=== PATIENT | female | born 1935 | race Caucasian/White ===

== ENCOUNTER 2019-01-03 07:49 | Inpatient (IN) ==
--- OUTSIDE RECORDS SUMMARY | 2019-01-03 07:53 | External Medical Summary | Continuity of Care Document ---
:1935 Author Name Luis Carlos Espino, Provider Address Unavailable Unavailable , Care Team Providers Name Role Phone Unavailable Unavailable Unavailable AMPAROQUINOTN Unavailable Unavailable Problems Nontraumatic intracranial hemorrhage, unspecified (432.9) (I 62.9) Anemia (285.9) (D64.9) Reflux esophagitis (530.11) (K21.0) Other sequela of other cerebrovascular disease (438.89) (I69 .898) Chronic diastolic CHF (congestive heart failure) (428.32) (I 50.32) Impacted cerumen of both ears (380.4) (H61.23) Allergies and Adverse Reactions Ativan (Allergy) diphenhydrAMINE HCl CAPS (Allergy) Eggs (Allergy) Medications Zoloft 50 MG Oral Tablet; TAKE 1 TABLET DAILY. , M.D. Refills: 0 Caltrate 600+D 600-800 MG-UNIT TABS; Take 1 tablet twice demian ly , M.D. Refills: 0 Cozaar 25 MG Oral Tablet; TAKE 1 TABLET DAILY. , M.D. Refills: 0 PriLOSEC OTC 20 MG Oral Tablet Delayed Release; TAKE 1 TABLE T DAILY. , M.D. Refills: 0 Lidoderm 5 % External Patch , M.D. Refills: 0 Xopenex 1.25 MG/3ML Inhalation Nebulization Solution , M.D. Refills: 0 Ipratropium-Albuterol 0.5-2.5 (3) MG/3ML Inhalation Solution , M.D. Refills: 0 oxyCODONE HCl - 5 MG Oral Tablet; TAKE 1/2 TABLET EVER Y 4 HOURS NEEDED , M.D. Refills: 0 Colace 100 MG Oral Capsule; TAKE 1 CAPSULE TWICE DAILY. , M. D. Refills: 0 Toprol XL 50 MG Oral Tablet Extended Release 24 Hour; Take 1 tablet twice daily , M.D. Refills: 0 Procedures Procedures not documented Immunizations Immunizations not documented Plan of Treatment Planned Observations Planned Goals not documented Results No Known Results Results not documented
[2019-01-03] MEDS ORDERED: MoRPHine SULFATE 4 MG/ML 1 ML CARP\\VIAL IV STA (08:16)
[2019-01-03 08:22] LABS: Basophils # (auto) 0.04 K/uL (0-0.2); Basophils % (auto) 0.6 %; Eosinophils # (auto) 0.31 K/uL (0-0.5); Eosinophils % (auto) 4.6 %; Hematocrit (blood only) 39.6 % (37-47); Hemoglobin 12.1 g/dL (12.0-16.0); Immature Granulocytes # (auto) 0.01 K/uL (0.00-0.02); Immature Granulocytes % (auto) 0.1 %; Lymphocytes # (auto) 1.42 K/uL (1.2-3.4); Lymphocytes % (auto) 21.3 %; Mean Corpuscular Hemoglobin 29.4 pg (25-34); Mean Corpuscular Hgb Conc 30.6 g/dL (32-36); Mean Corpuscular Volume 96.4 fL (80-100); Mean Platelet Volume 9.6 fL (7.4-10.4); Monocytes # (auto) 0.83 K/uL (0.11-0.59); Monocytes % (auto) 12.4 %; Neutrophils # (auto) 4.07 K/uL (1.4-6.5); Platelet Count 207 K/uL (130-400); RDW Coefficient of Variation 13.5 % (11.5-14.5); RDW Standard Deviation 47.5 fL (36.4-46.3); Red Blood Count 4.11 M/uL (4.2-5.4); White Blood Count 6.68 K/uL (4.8-10.8)
[2019-01-03 08:43] LABS: Albumin Level 3.3 gm/dl (3.4-5.0); BUN Creatinine Ratio 12.6 (10-20); Creatinine Clr Calc Pharmacy 53.1 ml/min; Est GFR (African American) 65.9; Est GFR (Non-African American) 56.8; Potassium 3.6 mmol/L (3.5-5.1)
[2019-01-03 08:46] LABS: Albumin Globulin Ratio 0.7 (0.9-2); Bilirubin,Total 0.5 mg/dl (0.2-1); Globulin 4.6 gm/dl (2.5-4.0); Total Protein 7.9 gm/dl (6.4-8.2)
[2019-01-03 08:50] LABS: Appearance Urine Clear (Clear); Bilirubin Urine Negative (Negative); Blood Urine Negative (Negative); Color Urine Yellow; Glucose Urine UA Negative (Negative); Ketones Urine Negative (Negative); Leukocyte Esterase Urine Negative (Negative); Nitrite Urine Negative (Negative); Protein Urine Negative (Negative); Specific Gravity Urine 1.016 (1.000-1.030); Urobilinogen Urine Negative (Negative)
--- NOTE | 2019-01-03 09:04 | Emergency Department Note ---
Entered by Constanza Herman acting as a scribe for History of Present Illness General Chief complaint: Back Injury/Pain Stated complaint: RT BACK AND SIDE PAIN,ABDOMEN PAIN Source: patient History of Present Illness Provider complaint: back pain Onset (ago): month(s) 1 Location: back, abdomen and right Severity: moderate Pain Consistency: + intermittent Maximum Pain Intensity: 10 Quality: + aching Exacerbated By: + movement Associated symptoms: + denies other symptoms The patient is an 83 y/o female with a PMH of a CVA, HTN, and CHF who presents to the emergency department for evaluation of intermittent right sided abdominal pain and right side of back that began last night. The patient states that she has had off and on pain for the past month in her back. The daughter reports that x-rays were taken but found nothing concerning. They state that the pain has been better until last night when it started again. She notes that the pain is worse with breathing and movement including twisting turning and bending. She notes that the pain is currently aching and she has been a bit nauseous. She notes that if she stays still pain is significantly better. The patient has a history of surgery for hernias, partial gastrectomy, cholecystectomy, and appendectomy. The patient denies numbness or weakness, vomiting and any other symptoms. She denies the use of blood thinners. No new chest pain or shortness of breath. Home Medications Home Medications Medication Instructions Recorded Confirmed Type sertraline 50 mg PO DAILY #0 tab 12/15/13 01/03/19 History metoprolol succinate 50 mg PO DAILY #0 tab 12/26/13 01/03/19 History nitroglycerin 0.4 mg SUBLINGUAL UD PRN #0 btl 12/26/13 01/03/19 History pantoprazole 40 mg PO DAILY #0 tab 12/26/13 01/03/19 History cholecalciferol (vitamin D3) 4,000 unit PO DAILY #0 tab 12/25/15 01/03/19 History calcium carbonate-vitamin D3 1 tab PO DAILY #0 04/12/16 01/03/19 History [Calcium 500 + D] sertraline 25 mg PO DAILY #0 tab 04/12/16 01/03/19 History albuterol sulfate [ProAir HFA] 2 inh INHALATION QID 01/03/19 01/03/19 History alendronate 70 mg PO SHERWOOD@0900 01/03/19 01/03/19 History benzonatate 100 mg PO TID PRN 01/03/19 01/03/19 History diclofenac sodium 4 g TOPICAL BID PRN 01/03/19 01/03/19 History furosemide 40 mg PO Q2D 01/03/19 01/03/19 History furosemide 60 mg PO Q2D 01/03/19 01/03/19 History iron,carbonyl-vitamin C [Vitron-C] 1 tab PO DAILY 01/03/19 01/03/19 History lorazepam 0.5 mg PO TID PRN 01/03/19 01/03/19 History Allergies Allergy/AdvReac Type Severity Reaction Status Date / Time diphenhydramine Allergy Severe ANAPHYLAXIS Verified 01/03/19 08:43 TO DIMEDROL-diphenhydramine is active ingredient nut - unspecified Allergy Severe ANAPHYLAXIS Verified 01/03/19 08:43 Past Med/Surg History Medical History Mood disorder (Chronic) Iron deficiency anemia (Chronic) Venous insufficiency (Chronic) Chronic respiratory failure with hypoxia (Chronic) Diastolic heart failure (Chronic) Hypertension (Chronic) Surgical History History of partial gastrectomy (Chronic) History of appendectomy (Chronic) Hx of cholecystectomy (Chronic) Family History Other Osteoporosis Social History Current Living Situation: Family Feels Safe at Home: Yes Smoking Status: Never smoker Hx Alcohol Use: No Review of Systems See HPI for pertinent positives & negatives. and A total of 10 systems reviewed and were otherwise negative Physical Exam Vital Signs Vital Signs - 24 hr 01/03/19 07:59 01/03/19 08:29 01/03/19 08:30 Temperature 37 C Temperature Source Oral Sepsis Recent Fever Within 48 Hours No Sepsis Action Taken by Nursing No Action Required Pulse Rate 77 Pulse Rate [Apical] 96 H Respiratory Rate 22 16 Respiratory Effort / Characteristics Non-Labored Spontaneous Respiratory Depth Normal Blood Pressure 106/58 L Blood Pressure [Right Arm] 142/91 H Blood Pressure Mean 74 Blood Pressure Mean [Right Arm] 108 Blood Pressure Position Sitting Pulse Oximetry 92 94 94 Oxygen Delivery Method Nasal Cannula Nasal Cannula Room Air Oxygen Flow Rate 3 3 3 01/03/19 09:48 01/03/19 10:54 01/03/19 12:08 Temperature Temperature Source Sepsis Recent Fever Within 48 Hours Sepsis Action Taken by Nursing Pulse Rate Pulse Rate [Apical] 75 73 71 Respiratory Rate 16 16 20 Respiratory Effort / Characteristics Non-Labored Spontaneous Respiratory Depth Normal Blood Pressure Blood Pressure [Right Arm] 97/76 L 136/91 161/100 H Blood Pressure Mean Blood Pressure Mean [Right Arm] 83 106 120 Blood Pressure Position Pulse Oximetry 94 95 97 Oxygen Delivery Method Room Air Room Air Room Air Oxygen Flow Rate 01/03/19 13:02 Temperature Temperature Source Sepsis Recent Fever Within 48 Hours Sepsis Action Taken by Nursing Pulse Rate Pulse Rate [Apical] 62 Respiratory Rate 16 Respiratory Effort / Characteristics Respiratory Depth Blood Pressure Blood Pressure [Right Arm] 138/89 Blood Pressure Mean Blood Pressure Mean [Right Arm] 105 Blood Pressure Position Pulse Oximetry 96 Oxygen Delivery Method Room Air Oxygen Flow Rate GENERAL: Sitting up in bed, alert, chronically appearing, well nourished, no distress, non-toxic, on 3 liters O2 nasal, holding right flank. EYE EXAM: normal conjunctiva. OROPHARYNX: no exudate, no erythema, lips, buccal mucosa, and tongue normal and mucous membranes are moist NECK: supple, no nuchal rigidity, no adenopathy, non-tender LUNGS: Diminished lung sounds. Normal chest wall mechanics HEART: no murmurs, S1 normal and S2 normal ABDOMEN: abdomen soft, tender to right mid-flank tracking to right abdominal region, large ventral hernia present which was not significantly tender with old incisions present BACK: Back is symmetrical on inspection and there is no deformity, tenderness throughout right lower and mid thoracic paraspinal and lateral regions no CVA tenderness. SKIN: no rashes and no bruising UPPER EXTREMITIES: upper extremities are grossly normal. LOWER EXTREMITIES: No pitting edema. NEURO EXAM: Normal sensorium, cranial nerves II-XII grossly intact, normal speech, no gross weakness of arms, no gross weakness of legs. Course ED COURSE: Vital signs were reviewed and was hypertensive The patients medical record was reviewed The above diagnostic studies were performed and reviewed. ED treatments and interventions as stated above. 0806: The patient was evaluated in room B02. A complete history and physical examination was performed. 0930: I checked on the patient, she is feeling better. 1117: Upon reevaluation, the patient is feeling better. I discussed my findings with the patient and she understands and agrees with the treatment plan. Based on the patients age, coexisting illnesses, exam and lab findings the decision to treat as an inpatient was made. 1120: I spoke with Kalpana Mendenhall Hospitalist regarding the patient. 1141: I spoke with Dr. Brown Mendenhall general surgery and he recommends admission to hospitalist. 1148: Kalpana Gilmore accepted the patient and will evaluate for further management. The patient remained stable while under my care. The patient will be evaluated for further management. Administered Medications Ioversol (Optiray 320 125ml) 120 ml IV ONCE PRN PRN Reason: Interaction Checking Stop: 01/07/19 09:34 Last Admin: 01/03/19 09:35 Dose: 120 ml Documented by: [id number] Discontinued Medications Morphine Sulfate (Morphine Sulfate) 4 mg IV NOW STA Stop: 01/03/19 08:17 Last Admin: 01/03/19 08:23 Dose: 4 mg Documented by: [id number] Medical Decision Making Differential Diagnosis Differential diagnoses includes but is not limited to gastritis, peptic ulcer disease, GERD, gallbladder disease, pancreatitis, small bowel obstruction, acute coronary syndrome, pericarditis, ischemic bowel, irritable bowel disease, irr itable bowel syndrome, appendicitis, diverticulitis, malignancy, hernia, urinary tract infection, torsion, perforation, trauma, infectious, lumbar radiculopathy, kidney stone, muscle strain, facture, cauda equina, mass, and disc herniation. Medical Records Attestation: I reviewed the patient's medical records. Home Medications Current Medication List: was personally reviewed by me Laboratory Data Attestation: I reviewed the patient's lab results. Result diagrams: 01/03/19 08:10 01/03/19 08:10 Lab Results 01/03/19 01/03/19 01/03/19 Range/Units 08:10 08:10 08:10 WBC 6.68 (4.8-10.8) K/uL RBC 4.11 L (4.2-5.4) M/uL Hgb 12.1 (12.0-16.0) g/dL Hct 39.6 (37-47) % MCV 96.4 (80-100) fL MCH 29.4 (25-34) pg MCHC 30.6 L (32-36) g/dL RDW Std Deviation 47.5 H (36.4-46.3) fL RDW Coeff of Annamarie 13.5 (11.5-14.5) % Plt Count 207 (130-400) K/uL MPV 9.6 (7.4-10.4) fL Immature Gran % (Auto) 0.1 % Neut % (Auto) 61.0 % Lymph % (Auto) 21.3 % [place] % (Auto) 12.4 % Eos % (Auto) 4.6 % Baso % (Auto) 0.6 % Immature Gran # (Auto) 0.01 (0.00-0.02) K/uL Neut # (Auto) 4.07 (1.4-6.5) K/uL Lymph # (Auto) 1.42 (1.2-3.4) K/uL [place] # (Auto) 0.83 H (0.11-0.59) K/uL Eos # (Auto) 0.31 (0-0.5) K/uL Baso # (Auto) 0.04 (0-0.2) K/uL D-Dimer (0-500) ug/L FEU Sodium 141 (136-145) mmol/L Potassium 3.6 (3.5-5.1) mmol/L Chloride 99 (98-107) mmol/L Carbon Dioxide 40 H (21-32) mmol/L Anion Gap 3.0 (3-11) BUN 12 (7-18) mg/dl Creatinine 0.93 (0.6-1.2) mg/dl Est Cr Clr Drug Dosing 53.1 ml/min Est GFR ( Amer) 65.9 Est GFR (Non-Af Amer) 56.8 BUN/Creatinine Ratio 12.6 (10-20) Glucose 123 H (70-99) mg/dl Calcium 9.0 (8.5-10.1) mg/dl Total Bilirubin 0.5 (0.2-1) mg/dl AST 19 (15-37) U/L ALT 20 (12-78) U/L Alkaline Phosphatase 92 (45-117) U/L Troponin I < 0.015 (0-0.045) ng/ml Total Protein 7.9 (6.4-8.2) gm/dl Albumin 3.3 L (3.4-5.0) gm/dl Globulin 4.6 H (2.5-4.0) gm/dl Albumin/Globulin Ratio 0.7 L (0.9-2) Lipase 167 (73-393) U/L Urine Color Urine Appearance (Clear) Urine pH (4.5-7.5) Ur Specific [place] (1.000-1.030) Urine Protein (Negative) Urine Glucose (UA) (Negative) Urine Ketones (Negative) Urine Blood (Negative) Urine Nitrite (Negative) Urine Bilirubin (Negative) Urine Urobilinogen (Negative) Ur Leukocyte Esterase (Negative) 01/03/19 01/03/19 Range/Units 08:30 08:40 WBC (4.8-10.8) K/uL RBC (4.2-5.4) M/uL Hgb (12.0-16.0) g/dL Hct (37-47) % MCV (80-100) fL MCH (25-34) pg MCHC (32-36) g/dL RDW Std Deviation (36.4-46.3) fL RDW Coeff of Annamarie (11.5-14.5) % Plt Count (130-400) K/uL MPV (7.4-10.4) fL Immature Gran % (Auto) % Neut % (Auto) % Lymph % (Auto) % [place] % (Auto) % Eos % (Auto) % Baso % (Auto) % Immature Gran # (Auto) (0.00-0.02) K/uL Neut # (Auto) (1.4-6.5) K/uL Lymph # (Auto) (1.2-3.4) K/uL [place] # (Auto) (0.11-0.59) K/uL Eos # (Auto) (0-0.5) K/uL Baso # (Auto) (0-0.2) K/uL D-Dimer 900 H* (0-500) ug/L FEU Sodium (136-145) mmol/L Potassium (3.5-5.1) mmol/L Chloride (98-107) mmol/L Carbon Dioxide (21-32) mmol/L Anion Gap (3-11) BUN (7-18) mg/dl Creatinine (0.6-1.2) mg/dl Est Cr Clr Drug Dosing ml/min Est GFR ( Amer) Est GFR (Non-Af Amer) BUN/Creatinine Ratio (10-20) Glucose (70-99) mg/dl Calcium (8.5-10.1) mg/dl Total Bilirubin (0.2-1) mg/dl AST (15-37) U/L ALT (12-78) U/L Alkaline Phosphatase (45-117) U/L Troponin I (0-0.045) ng/ml Total Protein (6.4-8.2) gm/dl Albumin (3.4-5.0) gm/dl Globulin (2.5-4.0) gm/dl Albumin/Globulin Ratio (0.9-2) Lipase (73-393) U/L Urine Color Yellow Urine Appearance Clear (Clear) Urine pH 5.0 (4.5-7.5) Ur Specific [place] 1.016 (1.000-1.030) Urine Protein Negative (Negative) Urine Glucose (UA) Negative (Negative) Urine Ketones Negative (Negative) Urine Blood Negative (Negative) Urine Nitrite Negative (Negative) Urine Bilirubin Negative (Negative) Urine Urobilinogen Negative (Negative) Ur Leukocyte Esterase Negative (Negative) Imaging Data Radiologist's Impression: Radiology results as stated below per my review and the radiologist's interpretation: CT abd pelvis IV con only CLINICAL HISTORY: 83 years-old Female presenting with r flank and back pain, pleuritic pain, elevated d-dimer. TECHNIQUE: Multidetector CT of the abdomen and pelvis was performed after the administration of intravenous contrast. IV contrast: 120 mL of Optiray 320. One or more dose lowering techniques were used consistent with the principles of ALARA (as low as reasonably achievable), including automatic exposure control, mA or kV adjustment to individual patient size, and/or use of iterative reconstruction. COMPARISON: 04/20/2016. CT DOSE (mGy.cm): The estimated cumulative dose is 1949.68 mGy.cm. FINDINGS: Bank Teller topogram: Unremarkable. Lung bases: Multichamber enlargement of the heart. No pericardial or pleural effusion. Pulmonary vascular cord with thickening of the bronchovascular bundles in the lower lobes. Bibasilar atelectasis. Liver: Normal morphology. No liver lesion. Patent hepatic vasculature. Biliary: Mild biliary ductal prominence likely a reservoir effect in the post cholecystectomy state. Gallbladder surgically absent. Pancreas: Mild parenchymal atrophy. Small cystic lesions may be present in the pancreatic body-tail junction (series 6 image 118). Spleen: Subcentimeter hypoenhancing lesion at the inferior pole the spleen, possibly lymphangioma or hemangioma. Splenic parenchyma otherwise normal. Adrenal glands: Normal. Kidneys and ureters: Bilateral renal cysts, the largest on the right. These are grossly simple appearing. No nephrolithiasis or hydronephrosis. Bladder: Circumferential bladder wall thickening suggested allowing for underdistention. There is also a bladder diverticulum at the anterior bladder dome. Pelvic organs: Uterus and ovaries normal. Bowel: The mid transverse colon is contained within 2 adjacent ventral hernias, one in the midline in the supraumbilical position is a Schultz-type hernia (series 6 image 176) with a relatively wide neck. The second immediately adjacent along the left paracentral ventral abdomen contains a short loop of transverse colon and its mesentery and has a relatively narrow neck measuring approximately 2.4 cm in diameter comparison to the hernia sac which measures 8 c m (series 6 image 198). The hernia sac does not contain fluid or demonstrate infiltrative change. No high-grade bowel obstruction though the left colon is decompressed relative to the right. The appendix is not visualized. Surgical or endoscopy clip noted in the gastric fundus as on prior exam. Postsurgical changes of distal gastrectomy and gastrojejunostomy in a retrocolic position. Peritoneal cavity: No free fluid or intraperitoneal gas. Lymph nodes: No enlarged lymph nodes in the abdomen or pelvis. Vasculature: Atherosclerosis of the normal caliber abdominal aorta. IVC patent. Abdominal wall: Multiple ventral hernias including the 2 previously mentioned containing a portion of transverse colon. The remainder of the ventral hernias are also in the midline or immediately off midline and are fat-containing. Several these also contain fluid. These appear slightly increased in size from prior exam. Musculoskeletal: Degenerative changes of the spine. Old rib fractures noted. Mild vertebral body height loss of T10. IMPRESSION: 1. Multiple ventral hernias, some of which have increased in size from prior and now contain portions of transverse colon. There is no high-grade or complete bowel obstruction. Some degree of low-grade partial obstruction may be present given the decompressed left colon in comparison to the right colon. No evidence of stricture angulation of the transverse colon within the hernias. 2. Postsurgical changes of distal gastrectomy with a retrocolic gas trojejunostomy. 3. Cystic renal disease. 4. Cardiomegaly with mild volume overload evidenced by pulmonary vascular engorgement. 5. Bibasilar atelectasis. Electronically signed by: Chaim Lynn M.D. 01/03/2019 10:[address] ANGIOGRAPHY OF THE CHEST, PULMONARY EMBOLUS PROTOCOL CLINICAL HISTORY: +dd and pleuritic right chest wall. COMPARISON STUDY: Chest CT January 15, 2014. April 23, 2016. TECHNIQUE: Following IV administration of 120 mL of Optiray-320, helical axial images of the chest were obtained utilizing the pulmonary embolus protocol. Maximal intensity projections and sagittal and coronal reformats were viewed on an independent 3D workstation. IV contrast was administered without complication. Automated exposure control was utilized for the study. A dose lowering technique was utilized adhering to the principles of ALARA. FINDINGS: No pulmonary emboli are identified although the segmental and subsegmental pulmonary arteries are suboptimally assessed given respiratory motion. There is no thoracic aortic dissection. Note is made of an aberrant right subclavian artery. The heart is moderately enlarged. There is no pericardial effusion. No pneumothorax or pleural effusion. A few posterior mediastinal cysts are benign. These are unchanged. Lungs are suboptimally assessed due to respiratory motion. Linear opacities suggest atelectasis. There is no consolidation to suggest pneumonia. Old T7 and T10 compression fractures are noted. There are multiple old bilateral rib fractures. There are healing fractures of the posterior right fourth through seventh ribs. The CT of the abdomen and pelvis will be reported separately. IMPRESSION: 1. No pulmonary emboli identified although segmental and subsegmental pulmonary arteries suboptimally assessed given respiratory motion. 2. Linear bilateral opacities within the lungs suggestive of atelectasis. 3. Moderate cardiomegaly. 4. Healing fractures of the posterior right fourth through seventh ribs. Numerous old bilateral rib fractures. Electronically signed by: Neftali Terry M.D. 01/03/2019 10:02 AM ECG Data Attestation: I personally reviewed and interpreted this ECG as follows: Indication: abdominal pain and back/shoulder pain Rate (beats per minute): 74 Rhythm: sinus rhythm Findings: + other (poor baseline, and normal axis) and + PAC Blood Pressure Blood Pressure Findings: Elevated blood pressure Blood Pressure Disposition: further management by hospitalist BRENDA Narrative Patient is an 83-year-old female with a past medical history of CVA, hypertension, CHF who presents the ER for right flank pain. Pain is worsened wi th movement. She has no weakness numbness in her legs. Able to void to move her bowels without difficulty. Does have a past surgical history of appendectomy, cholecystectomy, partial gastrectomy. She is tenderness throughout her right flank. There is no signs of peritonitis. IV and blood work was obtained. She is chronically on her 3 L nasal cannula. She was given IV morphine for pain control. Labs show no significant leukocytosis or anemia. BMP with slightly elevated CO2. LFTs bilirubin and troponin was negative. Lipase is normal. UA was negative. D-dimer was positive. CT PE was performed and was negative with the exception of old and healing rib fractures. CT abdomen pelvis shows questionable small bowel obstruction although I favor less likely as patient has had no vomiting and last bowel movement was this morning. With her pain this could be a possibility however. Do favor is likely secondary to musculoskeletal instead of that of the SBO. Patient family were updated bedside. Discussed with the hospitalist and general surgery. Patient will be observed. Impression & Plan Abdominal pain, SBO (small bowel obstruction), Fracture of rib, Back pain Discharge Plan Visit Data Chief Complaint: Back Injury/Pain Stated Complaint: RT BACK AND SIDE PAIN,ABDOMEN PAIN ED Provider: Daniel Hart Discharge Problem: Abdominal pain, SBO (small bowel obstruction), Fracture of rib, Back pain Patient Disposition: Home - Self-Care Forms Stand Alone Forms: [facility], Important Visit Information Prescriptions Prescriptions: No Action sertraline 50 mg Tablet 50 mg PO DAILY Qty: 0 RF: 0 metoprolol succinate 50 mg Tablet Extended Release 24 Hr 50 mg PO DAILY Qty: 0 RF: 0 pantoprazole 40 mg Tablet,Delayed Release (Dr/Ec) 40 mg PO DAILY Qty: 0 RF: 0 nitroglycerin 0.4 mg Tablet, Sublingual 0.4 mg sublingual UD PRN (Reason: Chest Pain) Qty: 0 RF: 0 cholecalciferol (vitamin D3) 4,000 unit Tablet 4,000 unit PO DAILY Qty: 0 RF: 0 sertraline 25 mg Tablet 25 mg PO DAILY Qty: 0 RF: 0 calcium carbonate-vitamin D3 [Calcium 500 + D] 500 mg(1,250mg) -200 unit Tablet 1 tab PO DAILY Qty: 0 RF: 0 furosemide 40 mg tablet 40 mg PO Q2D RF: 0 furosemide 40 mg tablet 60 mg PO Q2D RF: 0 alendronate 70 mg tablet 70 mg PO SHERWOOD@0900 RF: 0 lorazepam 0.5 mg tablet 0.5 mg PO TID PRN (Reason: Anxiety) RF: 0 benzonatate 100 mg capsule 100 mg PO TID PRN (Reason: Cough) RF: 0 albuterol sulfate [ProAir HFA] 90 mcg/actuation HFA aerosol inhaler 2 inh inhalation QID RF: 0 diclofenac sodium 1 % gel 4 g topical BID PRN (Reason: Pain) RF: 0 Vitron-C 65 mg iron- 125 mg Tablet,Delayed Release (Dr/Ec) 1 tab PO DAILY RF: 0 Referrals Referrals: Travis Joseph, [Primary Care Provider] - The scribe's documentation has been prepared under my direction and personally reviewed by me in its entirety. I confirm that the note above accurately reflects all work, treatment, procedures, and medical decision making performed by me.
[2019-01-03 09:12] LABS: D Dimer 900 ug/L FEU (0-500)
[2019-01-03] MEDS ORDERED: OPTIRAY 320 125ml IV PRN (09:35)
--- NOTE | 2019-01-03 10:03 | CT Scan Report ---
CT ANGIOGRAPHY OF THE CHEST, PULMONARY EMBOLUS PROTOCOL CLINICAL HISTORY: +dd and pleuritic right chest wall. COMPARISON STUDY: Chest CT January 15, 2014. April 23, 2016. TECHNIQUE: Following IV administration of 120 mL of Optiray-320, helical axial images of the chest we re obtained utilizing the pulmonary embolus protocol. Maximal intensity projections and sagittal and coronal reformats were viewed on an independent 3D workstation. IV contrast was administered withou t complication. Automated exposure control was utilized for the study. A dose lowering technique wa s utilized adhering to the principles of ALARA. FINDINGS: No pulmonary emboli are identified although the segmental and subsegmental pulmonary arter ies are suboptimally assessed given respiratory motion. There is no thoracic aortic dissection. Note is made of an aberrant right subclavian artery. The heart is moderately enlarged. There is no pericar dial effusion. No pneumothorax or pleural effusion. A few posterior mediastinal cysts are benign. The se are unchanged. Lungs are suboptimally assessed due to respiratory motion. Linear opacities suggest atelectasis. There is no consolidation to suggest pneumonia. Old T7 and T10 compression fractures ar e noted. There are multiple old bilateral rib fractures. There are healing fractures of the posterior right fourth through seventh ribs. The CT of the abdomen and pelvis will be reported separately. IMPRESSION: 1. No pulmonary emboli identified although segmental and subsegmental pulmonary arteries suboptimally assessed given respiratory motion. 2. Linear bilateral opacities within the lungs suggestive of atelectasis. 3. Moderate cardiomegaly. 4. Healing fractures of the posterior right fourth through seventh ribs. Numerous old bilateral rib f ractures. Electronically signed by: Neftali Terry M.D. 01/03/2019 10:02 AM
--- NOTE | 2019-01-03 10:48 | CT Scan Report ---
CT abd pelvis IV con only CLINICAL HISTORY: 83 years-old Female presenting with r flank and back pain, pleuritic pain, elevated d-dimer. TECHNIQUE: Multidetector CT of the abdomen and pelvis was performed after the administration of intra venous contrast. IV contrast: 120 mL of Optiray 320. One or more dose lowering techniques were used c onsistent with the principles of ALARA (as low as reasonably achievable), including automatic exposur e control, mA or kV adjustment to individual patient size, and/or use of iterative reconstruction. COMPARISON: 04/20/2016. CT DOSE (mGy.cm): The estimated cumulative dose is 1949.68 mGy.cm. 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 Lung bases: Multichamber enlargement of the heart. No pericardial or pleural effusion. Pulmonary vasc ular cord with thickening of the bronchovascular bundles in the lower lobes. Bibasilar atelectasis. Liver: Normal morphology. No liver lesion. Patent hepatic vasculature. Biliary: Mild biliary ductal prominence likely a reservoir effect in the post cholecystectomy state. Gallbladder surgically absent. Pancreas: Mild parenchymal atrophy. Small cystic lesions may be present in the pancreatic body-tail j unction (series 6 image 118). Spleen: Subcentimeter hypoenhancing lesion at the inferior pole the spleen, possibly lymphangioma or hemangioma. Splenic parenchyma otherwise normal. Adrenal glands: Normal. Kidneys and ureters: Bilateral renal cysts, the largest on the right. These are grossly simple appear ing. No nephrolithiasis or hydronephrosis. Bladder: Circumferential bladder wall thickening suggested allowing for underdistention. There is als o a bladder diverticulum at the anterior bladder dome. Pelvic organs: Uterus and ovaries normal. Bowel: The mid transverse colon is contained within 2 adjacent ventral hernias, one in the midline in the supraumbilical position is a Schultz-type hernia (series 6 image 176) with a relatively wide nec k. The second immediately adjacent along the left paracentral ventral abdomen contains a short loop o f transverse colon and its mesentery and has a relatively narrow neck measuring approximately 2.4 cm in diameter comparison to the hernia sac which measures 8 cm (series 6 image 198). The hernia sac regan s not contain fluid or demonstrate infiltrative change. No high-grade bowel obstruction though the le ft colon is decompressed relative to the right. The appendix is not visualized. Surgical or endoscopy clip noted in the gastric fundus as on prior exam. Postsurgical changes of distal gastrectomy and ga strojejunostomy in a retrocolic position. Peritoneal cavity: No free fluid or intraperitoneal gas. Lymph nodes: No enlarged lymph nodes in the abdomen or pelvis. Vasculature: Atherosclerosis of the normal caliber abdominal aorta. IVC patent. Abdominal wall: Multiple ventral hernias including the 2 previously mentioned containing a portion of transverse colon. The remainder of the ventral hernias are also in the midline or immediately off mi dline and are fat-containing. Several these also contain fluid. These appear slightly increased in si ze from prior exam. Musculoskeletal: Degenerative changes of the spine. Old rib fractures noted. Mild vertebral body heig ht loss of T10. IMPRESSION: 1. Multiple ventral hernias, some of which have increased in size from prior and now contain portion s of transverse colon. There is no high-grade or complete bowel obstruction. Some degree of low-grade partial obstruction may be present given the decompressed left colon in comparison to the right colo n. No evidence of stricture angulation of the transverse colon within the hernias. 2. Postsurgical changes of distal gastrectomy with a retrocolic gastrojejunostomy. 3. Cystic renal disease. 4. Cardiomegaly with mild volume overload evidenced by pulmonary vascular engorgement. 5. Bibasilar atelectasis. Electronically signed by: Chaim Lynn M.D. 01/03/2019 10:47 AM
--- NOTE | 2019-01-03 12:34 | History & Physical Report ---
Date of Service January 03, 2019 Assessment & Plan (1) Partial small bowel obstruction: This is a 83yo F with a PMH of chronic hypoxic respiratory failure on 3L NC O2, diastolic heart failure, h/o CVA, HTN, iron deficiency anemia and history of multiple abdominal surgeries who presents with RUQ pain since last evening and was found to have a partial SBO. -Afebrile and hemodynamically stable. No leukocytosis. Urinalysis normal -CT abd/pelvis with multiple ventral hernias, some of which have increased in size from prior and now contain portions of transverse colon. There is no high- grade or complete bowel obstruction but presence of degree of low-grade partial obstruction may be present given the decompressed left colon in comparison to the right colon. No evidence of stricture angulation of the transverse colon within the hernias -Does have history of multiple GI surgeries, including hernias, partial gastrectomy, cholecystectomy and appendectomy -Manage conservatively. Keep NPO for now, pain control, gentle IV fluids -Routine gen surg consult (2) Chronic respiratory failure with hypoxia: On chronic 3L NC O2 in setting of diastolic heart failure (3) Diastolic heart failure: Euvolemic appearance on exam -TTE from Apr 2018 with preserved EF of 55% -Took 40mg Lasix this morning, due for 60mg tomorrow with alternating dose -Will hold oral medications for now. Gentle IV fluids while NPO (4) Fracture of rib: Chest CTA with evidence of healing fractures of the posterior right fourth through seventh ribs. Numerous old bilateral rib fractures -Tylenol PRN for right sided back pain (5) Hypertension: Normotensive -Continue Toprol (6) Mood disorder: Continue Zoloft (7) Iron deficiency anemia: Hgb stable at 12.1 -Continue iron supplementation DVT Ppx: SCDs for now Code status: FULL code PCP: Jake Dispo: Admit to med/surg. Plan to return home once medically stable. Patient seen in collaboration with Dr. Resendiz. Please see addendum. History of Present Illness Primary Care Provider: Travis Joseph DO This is a 83yo F with a PMH of chronic hypoxic respiratory failure on 3L NC O2, diastolic heart failure, h/o CVA, HTN, iron deficiency anemia and history of multiple abdominal surgeries who presents with RUQ pain since last evening. History primarily obtained by daughter at bedside. Patient has a history of right-sided back pain that appeared to be MSK pain related to rib comp ression/nerve pain on the R side around the rib level 7-8. CXR at that time without acute cardiopulmonary abnormality. Was started on Lidoderm patches and Tylenol for pain control. Last evening, patient began to have right upper quadrant pain described as constant pressure that is exacerbated with movement and alleviated with rest. Had difficulty sleeping. Associated with abdominal bloating but denies any fever, chills, nausea, vomiting, diarrhea or constipation. Endorses 3 bowel movements yesterday of normal color and caliber. In ED, patient found to be afebrile and hemodynamically stable. No leukocytosis. Urinalysis normal. Chest CTA without pulmonary emboli identified although segmental and subsegmental pulmonary arteries suboptimally assessed given respiratory motion. Also with evidence of healing fractures of the posterior right fourth through seventh ribs. Numerous old bilateral rib fractures. CT abd/pelvis with multiple ventral hernias, some of which have increased in size from prior and now contain portions of transverse colon. There is no high-grade or complete bowel obstruction but presence of degree of low- grade partial obstruction may be present given the decompressed left colon in comparison to the right colon. No evidence of stricture angulation of the transverse colon within the hernias. Does have history of multiple GI surgeries, including hernias, partial gastrectomy, cholecystectomy and appendectomy. Allergies Allergy/AdvReac Type Severity Reaction Status Date / Time diphenhydramine Allergy Severe ANAPHYLAXIS Verified 01/03/19 08:43 TO DIMEDROL-diphenhydramine is active ingredient nut - unspecified Allergy Severe ANAPHYLAXIS Verified 01/03/19 08:43 Home Medications Home Medications Medication Instructions Recorded Confirmed Type sertraline 50 mg PO DAILY #0 tab 12/15/13 01/03/19 History metoprolol succinate 50 mg PO DAILY #0 tab 12/26/13 01/03/19 History nitroglycerin 0.4 mg SUBLINGUAL UD PRN #0 btl 12/26/13 01/03/19 History pantoprazole 40 mg PO DAILY #0 tab 12/26/13 01/03/19 History cholecalciferol (vitamin D3) 4,000 unit PO DAILY #0 tab 12/25/15 01/03/19 History calcium carbonate-vitamin D3 1 tab PO DAILY #0 04/12/16 01/03/19 History [Calcium 500 + D] sertraline 25 mg PO DAILY #0 tab 04/12/16 01/03/19 History albuterol sulfate [ProAir HFA] 2 inh INHALATION QID 01/03/19 01/03/19 History alendronate 70 mg PO SHERWOOD@0900 01/03/19 01/03/19 History benzonatate 100 mg PO TID PRN 01/03/19 01/03/19 History diclofenac sodium 4 g TOPICAL BID PRN 01/03/19 01/03/19 History furosemide 40 mg PO Q2D 01/03/19 01/03/19 History furosemide 60 mg PO Q2D 01/03/19 01/03/19 History iron,carbonyl-vitamin C [Vitron-C] 1 tab PO DAILY 01/03/19 01/03/19 History lorazepam 0.5 mg PO TID PRN 01/03/19 01/03/19 History Past Med/Surg History Medical History Mood disorder (Chronic) Iron deficiency anemia (Chronic) Venous insufficiency (Chronic) Chronic respiratory failure with hypoxia (Chronic) Diastolic heart failure (Chronic) Hypertension (Chronic) Surgical History History of partial gastrectomy (Chronic) History of appendectomy (Chronic) Hx of cholecystectomy (Chronic) Family History Other Osteoporosis Social History Preferred Language: [facility] Communication Ability: Effective 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 Physical Exam Physical Exam: General Appearance: WD/WN, no apparent distress, resting comfortably Head: normocephalic, atraumatic Eyes: normal inspection, PERRL, EOMI ENT: hearing grossly normal, pharynx normal (moist mucous membranes) Neck: supple, no JVD, no adenopathy Respiratory/Chest: Expiratory wheezes throughout lung field. No rales or rhonchi. No respiratory distress or accessory muscle use on 3L NC O2 Cardiovascular: regular rate, rhythm, no murmur, normal peripheral pulses, trace BLE edema Abdomen/GI: hypoactive bowel sounds, soft, non-tender to palpation, ventral wall hernia left of midline that is non-tender Extremities/Musculoskelatal: normal inspection, no calf tenderness, normal capillary refill Neurologic/Psych: alert, normal mood/affect, oriented x 3 Skin: normal color, warm/dry Results & Data Vital Signs (Past 12 Hours) Vital Signs Temp Pulse Pulse Resp BP BP Pulse Ox 01/03/19 12:08 71 20 161/100 H 97 01/03/19 10:54 73 16 136/91 95 01/03/19 09:48 75 16 97/76 L 94 01/03/19 08:30 94 01/03/19 08:29 96 H 16 142/91 H 94 01/03/19 07:59 37 C 77 22 106/58 L 92 Laboratory Results Short CBC 01/03/19 Range/Units 08:10 WBC 6.68 (4.8-10.8) K/uL Hgb 12.1 (12.0-16.0) g/dL Hct 39.6 (37-47) % Plt Count 207 (130-400) K/uL BMP 01/03/19 08:10 Sodium 141 Potassium 3.6 Chloride 99 Carbon Dioxide 40 H BUN 12 Creatinine 0.93 Glucose 123 H Calcium 9.0 Cardiac Enzymes 01/03/19 Range/Units 08:10 Troponin I < 0.015 (0-0.045) ng/ml Liver Function 01/03/19 Range/Units 08:10 Total Bilirubin 0.5 (0.2-1) mg/dl AST 19 (15-37) U/L ALT 20 (12-78) U/L Alkaline Phosphatase 92 (45-117) U/L Albumin 3.3 L (3.4-5.0) gm/dl Urine 01/03/19 Range/Units 08:30 Urine Color Yellow Urine Appearance Clear (Clear) Urine pH 5.0 (4.5-7.5) Ur Specific [place] 1.016 (1.000-1.030) Urine Protein Negative (Negative) Urine Glucose (UA) Negative (Negative) Diagnostic Findings Chest CTA: IMPRESSION: 1. No pulmonary emboli identified although segmental and subsegmental pulmonary arteries suboptimally assessed given respiratory motion. 2. Linear bilateral opacities within the lungs suggestive of atelectasis. 3. Moderate cardiomegaly. 4. Healing fractures of the posterior right fourth through seventh ribs. Numerous old bilateral rib fractures. CT abd/pelvis: IMPRESSION: 1. Multiple ventral hernias, some of which have increased in size from prior and now contain portions of transverse colon. There is no high-grade or complete bowel obstruction. Some degree of low-grade partial obstruction may be present given the decompressed left colon in comparison to the right colon. No evidence of stricture angulation of the transverse colon within the hernias. 2. Postsurgical changes of distal gastrectomy with a retrocolic gastrojejunostomy. 3. Cystic renal disease. 4. Cardiomegaly with mild volume overload evidenced by pulmonary vascular engorgement. 5. Bibasilar atelectasis. Code Status & VTE Plan VTE Prophylaxis Plan VTE Prophylaxis will be ordered: Yes Supervising Physician Co-Signing Physician Notes Pt was seen and examined. Agreed with Kalpana EVANGELISTA exam, assessment and plan. 83yo F with a PMH of chronic hypoxic respiratory failure on 3L NC O2, diastolic heart failure, h/o CVA, HTN, iron deficiency anemia and history of multiple abdominal surgeries who presents with RUQ pain. CT abd/pelvis showed multiple ventral hernias, some of which have increased in size from prior and now contain portions of transverse colon with no high-grade or complete bowel obstruction. Some degree of low-grade partial obstruction may be present given the decompressed left colon in comparison to the right colon. Surgery consulted and recommended conservative management. Surgery Dr. Burnett recommended to transfer to a tertiary care hospital if worsening. For now pt refused to transfer to a tertiary care, but agreed to do if worsening. Will keep NPO for now. Will get an abdominal xray in am. Continue gentle hydration. Monitor electrolytes. Will monitor closely and if pt worsening, will transfer to a tertiary care. MD Astrid (1) Fracture of rib Encounter type: initial encounter Fracture type: closed Laterality: unspecified laterality Rib fracture type: single rib Qualified Code(s): S22.39XA - Fracture of one rib, unspecified side, initial encounter for closed fracture
--- NOTE | 2019-01-03 14:34 | Surgery Consultation ---
Date of Consultation January 03, 2019 CC: abdominal pain This is a 83yo F with a PMH of chronic hypoxic respiratory failure on 3L NC O2, diastolic heart failure, h/o CVA, HTN, iron deficiency anemia and history of multiple abdominal surgeries who presents with RUQ pain since last evening. History primarily obtained by daughter at bedside. Patient has a history of right-sided back pain that appeared to be MSK pain related to rib compression/nerve pain on the R side around the rib level 7-8. CXR at that time without acute cardiopulmonary abnormality. Was started on Lidoderm patches and Tylenol for pain control. Last evening, patient began to have right upper quadrant pain described as constant pressure that is exacerbated with movement and alleviated with rest. Had difficulty sleeping. Associated with abdominal bloating but denies any fever, chills, nausea, vomiting, diarrhea or constipation. Endorses 3 bowel movements yesterday of normal color and caliber. In ED, patient found to be afebrile and hemodynamically stable. No leukocytosis. Urinalysis normal. Chest CTA without pulmonary emboli identified although segmental and subsegmental pulmonary arteries suboptimally assessed given respiratory motion. Also with evidence of healing fractures of the posterior right fourth through seventh ribs. Numerous old bilateral rib fractures. CT abd/pelvis with multiple ventral hernias, some of which have increased in size from prior and now contain portions of transverse colon. There is no high-grade or complete bowel obstruction but presence of degree of low- grade partial obstruction may be present given the decompressed left colon in comparison to the right colon. No evidence of stricture angulation of the transverse colon within the hernias. Does have history of multiple GI surgeries, including hernias, partial gastrectomy, cholecystectomy and appendectomy. I ( Yolette Burnett MD)reviewed pt's H/P with pt and her daughter. pt has mild abdominal pain now, no nausea, no vomiting, last BM yesterday, pt was transfered to [facility] for abdominal hernia repair without mesh with cholecystectomy 4 years ago based on pt's lung and CHF condition. I reviewed CT scan and CTA scan. Assessment & Plan (1) Abdominal pain: pt is a 83 year-old female who was admitted to hospital for abdominal pain, ventral hernia, IMP: abdominal pain, ventral hernia, Plan, based on pt's CHF and chronic respiratory failure, I recommend to transfer to [facility] for ventral hernia. but pt and her daughter refused to to surgery or transfer, D/W benefits, risks and alternatives of transfer and surgery, possible pt may develop incarcerated ventral hernia without surgery. they understood, pt should transfer to higher level care if pt's condition is getting worse, pt and her daughter understood, they agree with it. conservative treatment first, NPO, IV fluid, control pain,repeat labs and KUB in am . will F/U (2) SBO (small bowel obstruction): History of Present Illness Attending Physician: Adina Yin MD Allergies Allergy/AdvReac Type Severity Reaction Status Date / Time diphenhydramine Allergy Severe ANAPHYLAXIS Verified 01/03/19 08:43 TO DIMEDROL-diphenhydramine is active ingredient nut - unspecified Allergy Severe ANAPHYLAXIS Verified 01/03/19 08:43 Home Medications Home Medications Medication Instructions Recorded Confirmed Type sertraline 50 mg PO DAILY #0 tab 12/15/13 01/03/19 History metoprolol succinate 50 mg PO DAILY #0 tab 12/26/13 01/03/19 History nitroglycerin 0.4 mg SUBLINGUAL UD PRN #0 btl 12/26/13 01/03/19 History pantoprazole 40 mg PO DAILY #0 tab 12/26/13 01/03/19 History cholecalciferol (vitamin D3) 4,000 unit PO DAILY #0 tab 12/25/15 01/03/19 History calcium carbonate-vitamin D3 1 tab PO DAILY #0 04/12/16 01/03/19 History [Calcium 500 + D] sertraline 25 mg PO DAILY #0 tab 04/12/16 01/03/19 History albuterol sulfate [ProAir HFA] 2 inh INHALATION QID 01/03/19 01/03/19 History alendronate 70 mg PO SHERWOOD@0900 01/03/19 01/03/19 History benzonatate 100 mg PO TID PRN 01/03/19 01/03/19 History diclofenac sodium 4 g TOPICAL BID PRN 01/03/19 01/03/19 History furosemide 40 mg PO Q2D 01/03/19 01/03/19 History furosemide 60 mg PO Q2D 01/03/19 01/03/19 History iron,carbonyl-vitamin C [Vitron-C] 1 tab PO DAILY 01/03/19 01/03/19 History lorazepam 0.5 mg PO TID PRN 01/03/19 01/03/19 History Patient History Medical History Mood disorder (Chronic) Iron deficiency anemia (Chronic) Venous insufficiency (Chronic) Chronic respiratory failure with hypoxia (Chronic) Diastolic heart failure (Chronic) Hypertension (Chronic) Surgical History History of partial gastrectomy (Chronic) History of appendectomy (Chronic) Hx of cholecystectomy (Chronic) Family History Other Osteoporosis Social History Current Living Situation: Family Feels Safe at Home: Yes Smoking Status: Never smoker Hx Alcohol Use: No Review of Systems Review of Systems: All systems reviewed & are unremarkable except as noted in HPI & below Physical Exam Constitutional: WD/WN, vitals as above well developed and well nourished obesity ENMT: external ear and nose normal, oropharynx normal Neck: trachea midline, no thyromegaly Respiratory: normal respiratory effort, lungs clear to auscultation O2 3l/min for last 4 years Cardiovascular: RRR, no murmur, no edema Rate/Rhythm: regular rate and regular rhythm Gastrointestinal (Abdomen): normal bowel sounds, soft, nontender, no hepatosplenomegaly Percussion/Palpation: abdomen soft some bulging on left middle line just above umbilical area, but the bulging is soft, no tenderness, no redness, BS +. no rebound pain, no distend on abdomen. pt has middle line incision scar, Musculoskeletal: no cyanosis or clubbing, extremities motor strength 5/5 Neurologic: patellar DTR's 2+ bilat, sensation intact Psychiatric: A+Ox3, euthymic affect Orientation: alert and oriented x 3 Results & Data Vital Signs (Past 12 Hours) Vital Signs Temp Pulse Pulse Resp BP BP Pulse Ox 01/03/19 13:02 62 16 138/89 96 01/03/19 12:08 71 20 161/100 H 97 01/03/19 10:54 73 16 136/91 95 01/03/19 09:48 75 16 97/76 L 94 01/03/19 08:30 94 01/03/19 08:29 96 H 16 142/91 H 94 01/03/19 07:59 37 C 77 22 106/58 L 92 Laboratory Results Abnormal lab results 01/03/19 01/03/19 01/03/19 Range/Units 08:10 08:10 08:40 RBC 4.11 L (4.2-5.4) M/uL MCHC 30.6 L (32-36) g/dL RDW Std Deviation 47.5 H (36.4-46.3) fL Cochran # (Auto) 0.83 H (0.11-0.59) K/uL D-Dimer 900 H* (0-500) ug/L FEU Carbon Dioxide 40 H (21-32) mmol/L Glucose 123 H (70-99) mg/dl Albumin 3.3 L (3.4-5.0) gm/dl Globulin 4.6 H (2.5-4.0) gm/dl Albumin/Globulin Ratio 0.7 L (0.9-2) Diagnostic Findings CT abd pelvis IV con only CLINICAL HISTORY: 83 years-old Female presenting with r flank and back pain, pleuritic pain, elevated d-dimer. TECHNIQUE: Multidetector CT of the abdomen and pelvis was performed after the administration of intravenous contrast. IV contrast: 120 mL of Optiray 320. One or more dose lowering techniques were used consistent with the principles of ALARA (as low as reasonably achievable), including automatic exposure control, mA or kV adjustment to individual patient size, and/or use of iterative reconstruction. COMPARISON: 04/20/2016. CT DOSE (mGy.cm): The estimated cumulative dose is 1949.68 mGy.cm. FINDINGS: Manager Activities topogram: Unremarkable. Lung bases: Multichamber enlargement of the heart. No pericardial or pleural effusion. Pulmonary vascular cord with thickening of the bronchovascular bundles in the lower lobes. Bibasilar atelectasis. Liver: Normal morphology. No liver lesion. Patent hepatic vasculature. Biliary: Mild biliary ductal prominence likely a reservoir effect in the post cholecystectomy state. Gallbladder surgically absent. Pancreas: Mild parenchymal atrophy. Small cystic lesions may be present in the pancreatic body-tail junction (series 6 image 118). Spleen: Subcentimeter hypoenhancing lesion at the inferior pole the spleen, possibly lymphangioma or hemangioma. Splenic parenchyma otherwise normal. Adrenal glands: Normal. Kidneys and ureters: Bilateral renal cysts, the largest on the right. These are grossly simple appearing. No nephrolithiasis or hydronephrosis. Bladder: Circumferential bladder wall thickening suggested allowing for underdistention. There is also a bladder diverticulum at the anterior bladder dome. Pelvic organs: Uterus and ovaries normal. Bowel: The mid transverse colon is contained within 2 adjacent ventral hernias, one in the midline in the supraumbilical position is a Schultz-type hernia (series 6 image 176) with a relatively wide neck. The second immediately adjacent along the left paracentral ventral abdomen contains a short loop of transverse colon and its mesentery and has a relatively narrow neck measuring approximately 2.4 cm in diameter comparison to the hernia sac which measures 8 cm (series 6 image 198). The hernia sac does not contain fluid or demonstrate infiltrative change. No high-grade bowel obstruction though the left colon is decompressed relative to the right. The appendix is not visualized. Surgical or endoscopy clip noted in the gastric fundus as on prior exam. Postsurgical changes of distal gastrectomy and gastrojejunostomy in a retrocolic position. Peritoneal cavity: No free fluid or intraperitoneal gas. Lymph nodes: No enlarged lymph nodes in the abdomen or pelvis. Vasculature: Atherosclerosis of the normal caliber abdominal aorta. IVC patent. Abdominal wall: Multiple ventral hernias including the 2 previously mentioned containing a portion of transverse colon. The remainder of the ventral hernias are also in the midline or immediately off midline and are fat-containing. Several these also contain fluid. These appear slightly increased in size from prior exam. Musculoskeletal: Degenerative changes of the spine. Old rib fractures noted. Mild vertebral body height loss of T10. IMPRESSION: 1. Multiple ventral hernias, some of which have increased in size from prior and now contain portions of transverse colon. There is no high-grade or complete bowel obstruction. Some degree of low-grade partial obstruction may be present given the decompressed left colon in comparison to the right colon. No evidence of stricture angulation of the transverse colon within the hernias. 2. Postsurgical changes of distal gastrectomy with a retrocolic gastrojejunostomy. 3. Cystic renal disease. 4. Cardiomegaly with mild volume overload evidenced by pulmonary vascular engorgement. 5. Bibasilar atelectasis. CT ANGIOGRAPHY OF THE CHEST, PULMONARY EMBOLUS PROTOCOL CLINICAL HISTORY: +dd and pleuritic right chest wall. COMPARISON STUDY: Chest CT January 15, 2014. April 23, 2016. TECHNIQUE: Following IV administration of 120 mL of Optiray-320, helical axial images of the chest were obtained utilizing the pulmonary embolus protocol. Maximal intensity projections and sagittal and coronal reformats were viewed on an independent 3D workstation. IV contrast was administered without complication. Automated exposure control was utilized for the study. A dose lowering technique was utilized adhering to the principles of ALARA. FINDINGS: No pulmonary emboli are identified although the segmental and subsegmental pulmonary arteries are suboptimally assessed given respiratory motion. There is no thoracic aortic dissection. Note is made of an aberrant right subclavian artery. The heart is moderately enlarged. There is no pericardial effusion. No pneumothorax or pleural effusion. A few posterior mediastinal cysts are benign. These are unchanged. Lungs are suboptimally assessed due to respiratory motion. Linear opacities suggest atelectasis. There is no consolidation to suggest pneumonia. Old T7 and T10 compression fractures are noted. There are multiple old bilateral rib fractures. There are healing fractures of the posterior right fourth through seventh ribs. The CT of the abdomen and pelvis will be reported separately. IMPRESSION: 1. No pulmonary emboli identified although segmental and subsegmental pulmonary arteries suboptimally assessed given respiratory motion. 2. Linear bilateral opacities within the lungs suggestive of atelectasis. 3. Moderate cardiomegaly. 4. Healing fractures of the posterior right fourth through seventh ribs. Numerous old bilateral rib fractures. (1) Abdominal pain Abdominal location: unspecified location Qualified Code(s): R10.9 - Unspecified abdominal pain
[2019-01-03] MEDS ORDERED: BENZONATATE 100 MG CAPSULE PO PRN (15:03)
[2019-01-03] MEDS ORDERED: SODIUM CHLORIDE 0.9% 500 ML IV SCH (15:03)
[2019-01-03] MEDS: ALBUTEROL HFA 8 GM INHALER INH SCH ×2 (18:21→20:24)
[2019-01-03] MEDS: ACETAMINOPHEN 1,000 MG/100 ML VIAL IV PRN (23:20)
[2019-01-04 07:01] LABS: Hematocrit (blood only) 35.9 % (37-47); Hemoglobin 11.1 g/dL (12.0-16.0); Mean Corpuscular Hemoglobin 29.8 pg (25-34); Mean Corpuscular Hgb Conc 30.9 g/dL (32-36); Mean Corpuscular Volume 96.2 fL (80-100); Mean Platelet Volume 9.4 fL (7.4-10.4); Platelet Count 182 K/uL (130-400); RDW Coefficient of Variation 13.5 % (11.5-14.5); Red Blood Count 3.73 M/uL (4.2-5.4); White Blood Count 6.01 K/uL (4.8-10.8)
[2019-01-04 07:41] LABS: BUN Creatinine Ratio 13.1 (10-20); Calcium 8.3 mg/dl (8.5-10.1); Creatinine Clr Calc Pharmacy 70.6 ml/min; Est GFR (African American) 92.9; Est GFR (Non-African American) 80.1; Potassium 3.8 mmol/L (3.5-5.1)
--- NOTE | 2019-01-04 08:00 | XRay Report ---
XR KUB/Abdomen 1 view CLINICAL HISTORY: f/u pain. Nausea. COMPARISON STUDY: CT 01/03/2019 FINDINGS: Nonobstructive bowel pattern. 4 mm lower pole left renal calcification. No secondary signs of free air. Surgical suture lines throughout the abdomen. Residual contrast within the bladder from prior CT exam. Moderate degenerative changes in the hips bi laterally. IMPRESSION: Nonobstructive bowel pattern. Lower pole left renal calcification. The above report was generated using voice recognition software. It may contain grammatical, syntax or spelling errors. Electronically signed by: Artur Zelaya M.D. 01/04/2019 7:58 AM
[2019-01-04] MEDS: ALBUTEROL HFA 8 GM INHALER INH SCH ×4 (08:12→21:58)
[2019-01-04] MEDS: DICLOFENAC SOD 1% GEL 100 GM TUBE EXT PRN (08:15)
--- NOTE | 2019-01-04 10:30 | Palliative Care Consultation ---
Date of Consultation January 04, 2019 History of Present Illness Attending Physician: Flora Eller DO Allergies Allergy/AdvReac Type Severity Reaction Status Date / Time diphenhydramine Allergy Severe ANAPHYLAXIS Verified 01/03/19 08:43 TO DIMEDROL-diphenhydramine is active ingredient nut - unspecified Allergy Severe ANAPHYLAXIS Verified 01/03/19 08:43 Home Medications Home Medications Medication Instructions Recorded Confirmed Type sertraline 50 mg PO DAILY #0 tab 12/15/13 01/03/19 History metoprolol succinate 50 mg PO DAILY #0 tab 12/26/13 01/03/19 History nitroglycerin 0.4 mg SUBLINGUAL UD PRN #0 btl 12/26/13 01/03/19 History pantoprazole 40 mg PO DAILY #0 tab 12/26/13 01/03/19 History cholecalciferol (vitamin D3) 4,000 unit PO DAILY #0 tab 12/25/15 01/03/19 History calcium carbonate-vitamin D3 1 tab PO DAILY #0 04/12/16 01/03/19 History [Calcium 500 + D] sertraline 25 mg PO DAILY #0 tab 04/12/16 01/03/19 History albuterol sulfate [ProAir HFA] 2 inh INHALATION QID 01/03/19 01/03/19 History alendronate 70 mg PO SHERWOOD@0900 01/03/19 01/03/19 History benzonatate 100 mg PO TID PRN 01/03/19 01/03/19 History diclofenac sodium 4 g TOPICAL BID PRN 01/03/19 01/03/19 History furosemide 40 mg PO Q2D 01/03/19 01/03/19 History furosemide 60 mg PO Q2D 01/03/19 01/03/19 History iron,carbonyl-vitamin C [Vitron-C] 1 tab PO DAILY 01/03/19 01/03/19 History lorazepam 0.5 mg PO TID PRN 01/03/19 01/03/19 History Patient History Medical History Mood disorder (Chronic) Iron deficiency anemia (Chronic) Venous insufficiency (Chronic) Chronic respiratory failure with hypoxia (Chronic) Diastolic heart failure (Chronic) Hypertension (Chronic) Surgical History History of partial gastrectomy (Chronic) History of appendectomy (Chronic) Hx of cholecystectomy (Chronic) Family History Other Osteoporosis Social History Preferred Language: Citizen Of [place] Communication Ability: Effective Medical Secretary Teacher Required: Yes Beliefs That Will Affect Care: None Current Living Situation: Family Current Living Situation Comment: lives with daughter Other Information That Helps Us Care for You: No Feels Safe at Home: Yes Safety Concerns: Feels Safe At This Time Smoking Status: Never smoker Hx Alcohol Use: No Hx Substance Use: No Results & Data Vital Signs (Past 12 Hours) Vital Signs Temp Pulse Pulse Resp BP Pulse Ox 01/04/19 07:50 36.9 C 66 14 136/87 98 01/03/19 23:09 36.9 C 72 18 109/72 96 PG Care Time/CCT Total # of Minutes Spent Total Time Spent with Patient: Total time spent is greater than 50% in coordination of care (as documented) at patient's floor/unit and/or counseling patient:
--- NOTE | 2019-01-04 10:37 | Surgery Progress Note ---
Date of Service January 04, 2019 Assessment & Plan (1) Abdominal pain: pt is a 83 year-old female who was admitted to hospital for abdominal pain, ventral hernia CT scan showing transverse colon in the ventral hernia with possible richters hernia Abdomen is soft, hernia present, no completely reducible . No abdominal pain. Labs and vitals stable. Chronic O2 via nasal cannula. KUB showing nonobstructive bowel pattern Plan: May have clear liquids and advance as tolerated Dr. Burnett discussed with patient and daughter yesterday that if she were to need surgery would recommend transfer to tertiary center for hernia repair given her chronic hypoxic respiratory failure on 3L NC O2 and diastolic heart failure, they understood but refused transfer at this time. Dr. Burnett has seen and examined pt, agrees with above. Subjective used ipad adoption agent patient denies of any abdominal pain, she states she is feeling good. wants to know when she can go home Physical Exam Constitutional: WD/WN, vitals as above + morbidly obese; no acute distress Respiratory: no respiratory distress Nasal cannula present Gastrointestinal (Abdomen): Inspection/Auscultation: abdomen not distended Percussion/Palpation: abdomen soft and + hernia; abdomen nontender, no guarding and abdomen not rigid Skin: no rashes, warm and dry Psychiatric: A+Ox3, euthymic affect Results & Data Vital Signs (Past 12 Hours) Vital Signs Temp Pulse Pulse Resp BP Pulse Ox 01/04/19 07:50 36.9 C 66 14 136/87 98 01/03/19 23:09 36.9 C 72 18 109/72 96 (1) Abdominal pain Abdominal location: unspecified location Qualified Code(s): R10.9 - Unspecified abdominal pain
--- NOTE | 2019-01-04 11:59 | Hospitalist Progress Note ---
Date of Service January 04, 2019 Assessment & Plan (1) Ventral hernia with bowel obstruction: Possible ventral hernia related to partial bowel obstruction. Conservative management overnight with bowel rest. Today her abdominal pain has resolved and her diet is being advanced to clears after conversation with operating room surgical technician. The patient feels well. Will advance her diet to solid food and likely send her home. We will discuss the plan with her daughter prior to any discharge plans. (2) Chronic respiratory failure with hypoxia: On chronic 3L NC O2 in setting of diastolic heart failure. Appears chronic and stable (3) Diastolic heart failure: Euvolemic appearance on exam -TTE from Apr 2018 with preserved EF of 55% -Lasix was restarted per home regimen (4) Fracture of rib: Chest CTA with evidence of healing fractures of the posterior right fourth through seventh ribs. Numerous old bilateral rib fractures. Today is reporting posterior right back pain, which appears consistent with healing rib fractures. Tylenol PRN. Will ensure she is able to ambulate without issue in setting of multiple prior falls. PT/OT were consulted. (5) Hypertension: Normotensive -Continue Toprol (6) Mood disorder: Continue Zoloft (7) DVT prophylaxis: DVT Ppx: Lovenox Code status: FULL code PCP: Jake Dispo: Plan to return home once tolerating her diet and after PT and OT have evaluated her. Flora Eller DO [facility] Hospitalist Subjective 83-year-old female who is Ukrainian-speaking and somewhat of a poor historian was admitted yesterday because of right upper quadrant pain. She denies any issues with food, nausea or other problems while at home with her bowel movements. She was found to have a partial small bowel obstruction and has multiple ventral hernias present on imaging. She denies any bowel movements overnight and denies passing gas overnight, stating "they have given me IV food." The patient is reporting a posterior right rib pain and reports a history of frequent falls in the past. Chest CTA from work-up yesterday revealed healing fractures of the posterior right fourth through seventh ribs with numerous old bilateral rib fractures. She denies needing any pain medications at this time. She is concerned that her hernia pain, which has now resolved, and her back pain might be related. However, overnight she reports having a good night sleep and a resolution of her abdominal pain. KUB this morning reveals no evidence of obstruction. I discussed the case with operating room surgical technician. Daughter is Faroese speaking and ask as her medical advocate. I explained to the patient I would be back later this afternoon while she was present to discuss the findings and plan. This discussion took place via a hospitalist medical director. Review of Systems Review of Systems: All systems reviewed & are unremarkable except as noted in HPI & below Physical Exam Physical Exam: CONSTITUTIONAL: obese, vitals as above, generally well- appearing EYES: normal conjunctivae, no scleral icterus ENT: MMM RESPIRATORY: clear to auscultation bilaterally, no crackles, rales or wheezes, normal respiratory effort CARDIOVASCULAR: regular rate and rhythm, S1 and 2 heard without murmurs, gallops or rubs, no JVD, no peripheral edema GASTROINTESTINAL: normal bowel sounds, soft, nontender, nondistended, a palpable, reducible ventral hernia present in central abdomen. I was unable to elicit pain with palpation in either the abdomen or the posterior right rib/intercostal space. MUSCULOSKELETAL: moves all extremities equally, sits up on her own, head is normocephalic and atraumatic SKIN: warm and dry NEUROLOGIC: CN 2-12 grossly intact, normal cognition, normal speech, no tremor, no gross focal deficits. Results & Data Vital Signs (Past 12 Hours) Vital Signs Temp Pulse Resp BP Pulse Ox 01/04/19 07:50 36.9 C 66 14 136/87 98 Laboratory Results Short CBC 01/04/19 Range/Units 06:51 WBC 6.01 (4.8-10.8) K/uL Hgb 11.1 L (12.0-16.0) g/dL Hct 35.9 L (37-47) % Plt Count 182 (130-400) K/uL [facility] 01/04/19 06:51 Sodium 144 Potassium 3.8 Chloride 103 Carbon Dioxide 39 H BUN 9 Creatinine 0.70 Glucose 99 Calcium 8.3 L Diagnostic Findings XR KUB/Abdomen 1 view CLINICAL HISTORY: f/u pain. Nausea. COMPARISON STUDY: CT 01/03/2019 FINDINGS: Nonobstructive bowel pattern. 4 mm lower pole left renal calcification. No secondary signs of free air. Surgical suture lines throughout the abdomen. Residual contrast within the bladder from prior CT exam. Moderate degenerative changes in the hips bilaterally. IMPRESSION: Nonobstructive bowel pattern. Lower pole left renal calcification. Medications Administered Current Inpatient Medications Albuterol (Ventolin Hfa) 2 puffs INH QID JAZMIN Stop: 02/02/19 16:59 Last Admin: 01/04/19 08:12 Dose: 2 puffs Documented by: Benzonatate (Tessalon Perle) 100 mg PO TID PRN PRN Reason: Cough Stop: 02/02/19 15:02 Diclofenac Sodium (Voltaren 1% Top) 4 appln EXT BID PRN PRN Reason: Pain Stop: 02/02/19 15:02 Last Admin: 01/04/19 08:15 Dose: 4 appln Documented by: Furosemide (Lasix) 60 mg PO Q2D JAZMIN Stop: 02/03/19 12:29 Furosemide (Lasix) 40 mg PO Q2D JAZMIN Stop: 02/04/19 08:59 Acetaminophen (Ofirmev) 1,000 mg in 100 mls @ 400 mls/hr IV Q8H PRN PRN Reason: Pain Stop: 02/02/19 15:02 Last Infusion: 01/03/19 23:35 Dose: Infused Documented by: Metoprolol Succinate (Toprol Xl) 50 mg PO DAILY JAZMIN Stop: 02/03/19 12:29 Miscellaneous (Order Awaiting Action) 1 ea N/A QS JAZMIN Stop: 02/03/19 15:59 Pantoprazole Sodium (Protonix) 40 mg PO DAILY JAZMIN Stop: 02/03/19 12:29 Sertraline HCl (Zoloft) 75 mg PO DAILY JAZMIN Stop: 02/03/19 12:29 (1) Fracture of rib Encounter type: initial encounter Fracture type: closed Laterality: unspecified laterality Rib fracture type: multiple ribs Qualified Code(s): S22.49XA - Multiple fractures of ribs, unspecified side, initial encounter for closed fracture
[2019-01-04] MEDS ORDERED: SERTRALINE HCL 50 MG TABLET PO SCH (12:00)
[2019-01-04] MEDS ORDERED: FUROSEMIDE 40 MG TAB PO SCH (12:30)
[2019-01-04] MEDS: SERTRALINE HCL 50 MG TABLET PO SCH (13:02)
[2019-01-04] MEDS: PANTOprazole 40 MG TAB PO SCH (13:02)
[2019-01-04] MEDS: METOPROLOL SUCC 50MG EXT REL TAB PO SCH (13:03)
[2019-01-04 13:37] LABS: Partial Thromboplastin Ratio 1.1; Partial Thromboplastin Time 30.9 Seconds (21.0-31.0)
[2019-01-04 16:47] LABS: Prothrombin Time 10.6 Seconds (9.0-12.0)
[2019-01-04] MEDS ORDERED: ENOXAPARIN INJ 40 MG/0.4 ML SYR SQ SCH (18:00)
[2019-01-04] MEDS: ACETAMINOPHEN 1,000 MG/100 ML VIAL IV PRN (21:57)
[2019-01-05 07:33] LABS: Hematocrit (blood only) 38.8 % (37-47); Hemoglobin 11.9 g/dL (12.0-16.0); Mean Corpuscular Hemoglobin 29.5 pg (25-34); Mean Corpuscular Hgb Conc 30.7 g/dL (32-36); Mean Corpuscular Volume 96.3 fL (80-100); Platelet Count 199 K/uL (130-400); RDW Coefficient of Variation 13.4 % (11.5-14.5); RDW Standard Deviation 46.9 fL (36.4-46.3); Red Blood Count 4.03 M/uL (4.2-5.4)
[2019-01-05 08:17] LABS: BUN Creatinine Ratio 10.8 (10-20); Calcium 8.8 mg/dl (8.5-10.1); Creatinine Clr Calc Pharmacy 63.4 ml/min; Est GFR (African American) 81.5; Est GFR (Non-African American) 70.3; Potassium 3.8 mmol/L (3.5-5.1)
[2019-01-05] MEDS: METOPROLOL SUCC 50MG EXT REL TAB PO SCH (08:54)
[2019-01-05] MEDS: SERTRALINE HCL 50 MG TABLET PO SCH (08:55)
[2019-01-05] MEDS: ALBUTEROL HFA 8 GM INHALER INH SCH ×3 (08:55→18:52)
[2019-01-05] MEDS: PANTOprazole 40 MG TAB PO SCH (08:55)
[2019-01-05] MEDS ORDERED: FUROSEMIDE 40 MG TAB PO SCH (09:00)
[2019-01-05] MEDS: DICLOFENAC SOD 1% GEL 100 GM TUBE EXT PRN (18:53)
--- NOTE | 2019-01-10 09:49 | Discharge Summary ---
Date of Service January 10, 2019 Admission HPI Per Admitting Provider This is a 83yo F with a PMH of chronic hypoxic respiratory failure on 3L NC O2, diastolic heart failure, h/o CVA, HTN, iron deficiency anemia and history of multiple abdominal surgeries who presents with RUQ pain since last evening. History primarily obtained by daughter at bedside. Patient has a history of right-sided back pain that appeared to be MSK pain related to rib compression/nerve pain on the R side around the rib level 7-8. CXR at that time without acute cardiopulmonary abnormality. Was started on Lidoderm patches and Tylenol for pain control. Last evening, patient began to have right upper quad rant pain described as constant pressure that is exacerbated with movement and alleviated with rest. Had difficulty sleeping. Associated with abdominal bloating but denies any fever, chills, nausea, vomiting, diarrhea or constipation. Endorses 3 bowel movements yesterday of normal color and caliber. In ED, patient found to be afebrile and hemodynamically stable. No leukocytosis. Urinalysis normal. Chest CTA without pulmonary emboli identified although segmental and subsegmental pulmonary arteries suboptimally assessed given respiratory motion. Also with evidence of healing fractures of the posterior right fourth through seventh ribs. Numerous old bilateral rib fractures. CT abd/pelvis with multiple ventral hernias, some of which have increased in size from prior and now contain portions of transverse colon. There is no high-grade or complete bowel obstruction but presence of degree of low- grade partial obstruction may be present given the decompressed left colon in comparison to the right colon. No evidence of stricture angulation of the transverse colon within the hernias. Does have history of multiple GI surgeries, including hernias, partial gastrectomy, cholecystectomy and appendectomy. Admission Exam Per Admitting Provider General Appearance: WD/WN, no apparent distress, resting comfortably Head: normocephalic, atraumatic Eyes: normal inspection, PERRL, EOMI ENT: hearing grossly normal, pharynx normal (moist mucous membranes) Neck: supple, no JVD, no adenopathy Respiratory/Chest: Expiratory wheezes throughout lung field. No rales or rhonchi. No respiratory distress or accessory muscle use on 3L NC O2 Cardiovascular: regular rate, rhythm, no murmur, normal peripheral pulses, tr chris BLE edema Abdomen/GI: hypoactive bowel sounds, soft, non-tender to palpation, ventral wall hernia left of midline that is non-tender Extremities/Musculoskelatal: normal inspection, no calf tenderness, normal capillary refill Neurologic/Psych: alert, normal mood/affect, oriented x 3 Skin: normal color, warm/dry Principal Diagnosis partial SBO multiple ventral hernias Discharge Data Allergies Allergy/AdvReac Type Severity Reaction Status Date / Time diphenhydramine Allergy Severe ANAPHYLAXIS Verified 01/03/19 08:43 TO DIMEDROL-diphenhydramine is active ingredient nut - unspecified Allergy Severe ANAPHYLAXIS Verified 01/03/19 08:43 Consultations 01/03/19 11:55 ED Decision to Admit Stat 01/03/19 15:03 Consult General Surgery Routine Ordered Studies 01/03/19 09:13 CT abd pelvis IV con only Stat 01/03/19 09:14 CT angio chest PE protocol Stat Hospital Course (1) Ventral hernia with bowel obstruction: (2) Chronic respiratory failure with hypoxia: (3) Fracture of rib: 83-year-old female presented with abdominal pain and was found to have a partial small bowel obstruction. She did not require an NG tube as she was not vomiting. She was admitted to the hospital service and placed on bowel rest. General surgery was consulted. She had a history of multiple GI surgeries including hernia surgeries, a partial gastrectomy, cholecystectomy and appendectomy. Multiple ventral hernias were seen on CT abdomen/pelvis, some of which had increased in size from prior films and now contained portions of transverse colon. Overnight the abdominal pain resolved and her diet was slowly advanced. At the time of discharge she was tolerating solid food without issue. Also of note she had subacute healing fractures of her posterior right ribs which were seen on the chest CTA performed. She did mention some pain in this area, which was consistent with a prior rib fracture. At time of discharge a [id number] examination was performed with abdomen soft, nontender and nondistended. There was no tenderness to palpation of her posterior right ribs. Heart and lung exam were otherwise normal. Translation was performed through a [place] grill cook and through her daughter at various times throughout her hosp italization as she is [place]itanian-speaking only. She was mentating and ambulating at baseline, was sent home in stable condition with close primary care follow-up recommended. Total Time Total Time Spent Total Time Spent (In Minutes): 60 Total Time Includes: Examination of the Patient, Discharge Planning, Medication Reconciliation and Communication With Other Providers Discharge Plan Discharge Items Patient Disposition: Home - Self-Care Reason For Visit: PARTIAL SBO Discharge Diagnosis: partial SBO Discharge Goals: Decrease discomfort Activity: Resume your previous activity Non-emergency contact: Primary Care Provider Call non-emergency contact if: you have any medication questions, your symptoms worsen, your pain is not controlled, your pain is worsening, your pain is unusual for you, your pain is concerning for you and you have a fever Follow-up/Referrals: Travis Joseph, [Primary Care Provider] - Diet: Regular Addtl Provider Instructions: Please take all medications as instructed on discharge list below. It is recommended that you follow-up with your primary care physician within one week of discharge. Someone from our staff will contact you tomorrow to set this up. At this appointment, it will be important to repeat your blood pressure, and ensure that all pain is improving in your back an that you are still handling food without any issues. It was a pleasure taking care of you! Please call if you have any questions or problems. You can reach a [facility] Hospitalist on duty at [facility] 24 hours a day by calling [phone]. Take care of yourself. Flora Eller, [facility] Hospitalist Prescriptions: Continued sertraline 50 mg Tablet 50 mg PO DAILY Qty: 0 RF: 0 metoprolol succinate 50 mg Tablet Extended Release 24 Hr 50 mg PO DAILY Qty: 0 RF: 0 pantoprazole 40 mg Tablet,Delayed Release (Dr/Ec) 40 mg PO DAILY Qty: 0 RF: 0 nitroglycerin 0.4 mg Tablet, Sublingual 0.4 mg sublingual UD PRN (Reason: Chest Pain) Qty: 0 RF: 0 cholecalciferol (vitamin D3) 4,000 unit Tablet 4,000 unit PO DAILY Qty: 0 RF: 0 sertraline 25 mg Tablet 25 mg PO DAILY Qty: 0 RF: 0 calcium carbonate-vitamin D3 [Calcium 500 + D] 500 mg(1,250mg) -200 unit Tablet 1 tab PO DAILY Qty: 0 RF: 0 furosemide 40 mg tablet 40 mg PO Q2D RF: 0 furosemide 40 mg tablet 60 mg PO Q2D RF: 0 alendronate 70 mg tablet 70 mg PO SHERWOOD@0900 RF: 0 lorazepam 0.5 mg tablet 0.5 mg PO TID PRN (Reason: Anxiety) RF: 0 benzonatate 100 mg capsule 100 mg PO TID PRN (Reason: Cough) RF: 0 albuterol sulfate [ProAir HFA] 90 mcg/actuation HFA aerosol inhaler 2 inh inhalation QID RF: 0 diclofenac sodium 1 % gel 4 g topical BID PRN (Reason: Pain) RF: 0 Vitron-C 65 mg iron- 125 mg Tablet,Delayed Release (Dr/Ec) 1 tab PO DAILY RF: 0 Stand-Alone Forms: [facility]/Other Patient Handouts: Obstruction Sm Bowel, Hypertension Control, Risk Factors High Blood Pressure, Hypertension Dc, Anemia Iron Deficiency Ch Discharge Orders: Discharge Order (Routine); Ordered 01/05/19 Ordered By: Flora Eller Admission Data Admit Date/Time: 01/03/19 12:27 Attending Provider: Flora Eller Admit Provider: Omar Resendiz Primary Care Provider: Travis Joseph Other Providers: Omar Resendiz ; Yolette Burnett Service: Medical Other Interventions: Discharge Summary Assessment (RN) Last Done: 01/05/19 19:02 DC Date/Time DO NOT enter until pt leaves facility: 01/05/19 19:46
== END 2019-01-05 19:46 | disposition home or self-care (01) | DRG 394 ==
LOC: ED 07:49 → 3N 12:27 → SUATTDRO 12:27 → 3N 13:55

== ENCOUNTER 2019-11-16 00:56 | Inpatient (IN) ==
[2019-11-16] MEDS ORDERED: SODIUM CHLORIDE 0.9% 1000ML 500 ML IV ONE (01:25)
[2019-11-16] MEDS ORDERED: SODIUM CHLORIDE 0.9% 1000ML 1,000 ML IV SCH (01:30)
[2019-11-16 02:29] LABS: Basophils # (auto) 0.02 K/uL (0-0.2); Basophils % (auto) 0.3 %; Eosinophils # (auto) 0.12 K/uL (0-0.5); Eosinophils % (auto) 1.8 %; Hematocrit (blood only) 40.4 % (37-47); Hemoglobin 12.3 g/dL (12.0-16.0); Immature Granulocytes # (auto) 0.01 K/uL (0.00-0.02); Immature Granulocytes % (auto) 0.1 %; Lymphocytes # (auto) 0.94 K/uL (1.2-3.4); Lymphocytes % (auto) 14.1 %; Mean Corpuscular Hemoglobin 29.6 pg (25-34); Mean Corpuscular Hgb Conc 30.4 g/dL (32-36); Mean Corpuscular Volume 97.3 fL (80-100); Mean Platelet Volume 11.1 fL (7.4-10.4); Monocytes # (auto) 1.05 K/uL (0.11-0.59); Monocytes % (auto) 15.7 %; Neutrophils # (auto) 4.53 K/uL (1.4-6.5); Platelet Count 162 K/uL (130-400); RDW Coefficient of Variation 13.3 % (11.5-14.5); Red Blood Count 4.15 M/uL (4.2-5.4); White Blood Count 6.67 K/uL (4.8-10.8)
[2019-11-16] MEDS ORDERED: METOPROLOL TARTRATE 1 MG/ML VIAL IV STA ×2 (02:36→03:09)
[2019-11-16 02:41] LABS: Partial Thromboplastin Time 28.7 Seconds (21.0-31.0); Prothrombin Time 10.8 Seconds (9.0-12.0)
[2019-11-16 02:46] LABS: Alanine Aminotransferase 19 U/L (12-78); Albumin Level 2.6 gm/dl (3.4-5.0); Aspartate Aminotransferase 33 U/L (15-37); BUN Creatinine Ratio 13.3 (10-20); Blood Urea Nitrogen 17 mg/dl (7-18); Calcium 8.2 mg/dl (8.5-10.1); Carbon Dioxide 39 mmol/L (21-32); Chloride 99 mmol/L (98-107); Est GFR (African American) 45.3; Est GFR (Non-African American) 39.1; Glucose 136 mg/dl (70-99); Magnesium 1.8 mg/dl (1.8-2.4); Potassium 2.7 mmol/L (3.5-5.1); Sodium 144 mmol/L (136-145)
--- NOTE | 2019-11-16 02:48 | Emergency Department Note ---
Impression & Plan Acute hypotension, Syncope, Atrial fibrillation with rapid ventricular response ED Provider Note NAME: CAMILA CHERY AGE: 84 SEX: F ARRIVES VIA: Walk-In INFORMANT: [Patient] ED PROVIDER(S): Zan Edwards MD CHIEF COMPLAINT: Fever PLAN: Disposition: Admitted Condition: [Good] MEDICAL DECISION MAKING: Patient presented with intermittent fevers. She was found to be mildly hypertensive upon presentation. History was also concerning for a syncopal episode that occurred this evening. She had blood work, ECG and imaging ordered. Patient was hydrated. Her hypotension resolved. She was found to have A. fib with RVR on her ECG. She was given a dose of IV Lopressor. Cardiac monitoring then revealed episodes of what appeared to be a narrow complex tachycardia possibly SVT. Rapid A. fib could be possible as the episodes were very short, less than 10 seconds. She was feeling lightheaded with this. This could explain her syncope. She was given an additional dose of IV Lopressor. Her potassium was low and she was having IV potassium. Urinalysis was raising some concerns for infection and IV Rocephin was given. Her remainder of her labs were unremarkable. She will need further management in the hospital. Consultation was made with the [facility] service. The case was discussed with Dr. Hayden. He evaluated the patient in the ER and admitted her. Triage Nursing notes reviewed and agree them. [Additional history obtained from] patient's daughter Vital Signs: reviewed and remarkable for mild hypotension Differential diagnosis: Infection, dehydration, metabolic abnormality, hypo/hyperglycemia, electrolyte disturbance, anemia, hypoxia, cardiac sources, intracerebral event, toxicologic, neurologic, as well as other pathologies. ER treatment provided: Saline hydration IV Lopressor x2 IV Rocephin IV potassium Diagnostics interpreted by me: ECG:Rate: 117 Rhythm: A. fib with RVR [place]: Normal QRS: Normal ST segements: No elevation or depression Other: PVCs present, LVH Cardiac Monitoring: Cardiac monitoring ordered by me: The patient was placed on continuous cardiac monitoring and observed. It revealed atrial fibrillation with a rate of 120 bpm. Occasionally rate of 180 bpm were noted. PVCs noted. Laboratory studies: [See below] unremarkable CBC. Hypokalemia noted. Urinalysis concerning for infection. Imaging studies: Chest x-ray. Findings: A chest x-ray was performed and revealed no pneumothorax, effusion, infiltrate, pulmonary edema, free air under the diaphragm, or wide mediastinum. Impression: No acute disease. Head CT: A noncontrast CT scan of the head was performed and was negative for tumor, fracture, intracranial hemorrhage, or other acute pathology. Consultation(s): [facility] service HPI: The patient is an 84 year old female who presents to the Emergency Room with complaints of fever. This started 3 days ago and is intermittent. The patient's daughter is present and helps with the history and helps translate. The patient also notes the following associated symptoms, syncope. The patient has been using Tylenol relieving factors. Current pain is rated as 0/10. Patient's primary physician had ordered a urine sample be performed to evaluate for the fever and this had not been completed yet. The patient has been isolating herself. No sick contacts. No exposure to normal coronavirus. Pt denies LOC, headache, diaphoresis, visual changes, neck pain, chest pain, breathing difficulties, nausea, vomiting, abdominal pain, back pain, melena, hematochezia, urinary symptoms, numbness, weakness, lymphadenopathy, rash, or other complaints. ROS: See above HPI for pertinent positives & negatives. A total of [10] systems reviewed and were otherwise negative. PAST MEDICAL HISTORY:[See Below] GERD, hypertension, PAST SURGICAL HISTORY:[See Below]appendectomy, cholecystectomy FAMILY HISTORY:[See Below] SOCIAL HISTORY:[See Below] lives with family HOME MEDICATIONS:[See Below] ALLERGIES:[See Below] VITALS:[See Below] PHYSICAL EXAMINATION: GENERAL: Awake, alert, well-appearing, in no distress HENT: Normocephalic, atraumatic. Oropharynx unremarkable. EYES: Normal conjunctiva. Sclera non-icteric. NECK: Inspection normal. Non-tender. Supple. No nuchal rigidity. FROM. No masses. RESPIRATORY: Clear to auscultation. No wheezes. No rales. Normal respiratory effort. CARDIAC: Tachycardic rate. Normal rhythm. No murmurs. No rubs. Extremities warm and well perfused. Pulses equal. No JVD. GI: Soft, non-distended. No tenderness to palpation. No rebound or guarding. No masses. RECTAL: Deferred. MUSCULOSKELETAL: Atraumatic. Chest examination reveals no tenderness. The back is symmetrical on inspection without obvious abnormality. There is no CVA tenderness to palpation. No joint edema. LOWER EXTREMITIES: Calves are equal size bilaterally and non-tender. No edema. No discoloration. NEURO: Normal sensorium. No sensory or motor deficits noted. SKIN: No rash or jaundice noted. ED COURSE: [Critical Care:] I have personally spent greater than 38 minutes of critical care time in the direct management of this patient. This includes bedside care, interpretation of diagnostic studies, and testing, discussion with consultants, patient, and family members, and other required patient management activities. These minutes are in excess of all separately billable procedures. Zan Edwards MD Past Med/Surg History Family History (Updated 01/03/19 @ 13:24 by Kalpana Gilmore PA-C) Other Osteoporosis Social History (Updated 01/03/19 @ 13:24 by Kalpana Gilmore PA-C) Preferred Language: Cypriot Communication Ability: Effective Communication Tools: Other Orchestra Conductor Required: Yes Beliefs That Will Affect Care: None Current Living Situation: Family Current Living Situation Comment: lives with daughter Feels Safe at Home: Yes Smoking Status: Unknown if ever smoked Hx Alcohol Use: No Hx Substance Use: No Allergies Allergies Allergy/AdvReac Type Severity Reaction Status Date / Time diphenhydramine Allergy Severe ANAPHYLAXIS Verified 11/16/19 03:32 TO DIMEDROL-diphenhydramine is active ingredient nut - unspecified Allergy Severe ANAPHYLAXIS Verified 11/16/19 03:32 Home Meds Home Medications Medication Instructions Recorded Confirmed sertraline 50 mg PO DAILY #0 tab 12/15/13 11/16/19 metoprolol succinate 50 mg PO DAILY #0 tab 12/26/13 11/16/19 nitroglycerin 0.4 mg SUBLINGUAL UD PRN #0 btl 12/26/13 11/16/19 pantoprazole 40 mg PO DAILY #0 tab 12/26/13 11/16/19 cholecalciferol (vitamin D3) 4,000 unit PO DAILY #0 tab 12/25/15 11/16/19 calcium carbonate-vitamin D3 1 tab PO DAILY #0 04/12/16 11/16/19 [Calcium 500 + D] sertraline 25 mg PO DAILY #0 tab 04/12/16 11/16/19 Vitron-C 1 tab PO DAILY 01/03/19 11/16/19 albuterol sulfate [ProAir HFA] 2 inh INHALATION QID 01/03/19 11/16/19 alendronate 70 mg PO SHERWOOD@0900 01/03/19 11/16/19 benzonatate 100 mg PO TID PRN 01/03/19 11/16/19 diclofenac sodium 4 g TOPICAL BID PRN 01/03/19 11/16/19 furosemide 40 mg PO DAILY 01/03/19 11/16/19 lorazepam 0.5 mg PO TID PRN 01/03/19 11/16/19 Results & Data (ED) Vital Signs Vital Signs - 24 hr 11/16/19 01:01 11/16/19 01:45 11/16/19 02:00 Temperature 37.2 C Temperature Source Oral Pulse Rate 96 H 105 H 115 H Pulse Rate from SpO2 Sensor Respiratory Rate 19 20 17 Blood Pressure 89/56 L 124/80 Blood Pressure Mean 67 94 Blood Pressure Position Lying Pulse Oximetry 98 95 98 Oxygen Delivery Method Nasal Cannula Room Air Oxygen Flow Rate 3 Sepsis Recent Fever Within 48 Hours Yes Sepsis Action Taken by Nursing No Action Required 11/16/19 02:30 11/16/19 03:08 11/16/19 03:14 Temperature Temperature Source Pulse Rate 114 H 188 H 98 H Pulse Rate from SpO2 Sensor 113 H 96 H Respiratory Rate 25 H 21 Blood Pressure 140/100 140/100 118/78 Blood Pressure Mean 102 109 Blood Pressure Position Pulse Oximetry 98 97 Oxygen Delivery Method Oxygen Flow Rate Sepsis Recent Fever Within 48 Hours Sepsis Action Taken by Nursing 11/16/19 03:19 11/16/19 03:30 Temperature Temperature Source Pulse Rate 187 H 114 H Pulse Rate from SpO2 Sensor 117 H Respiratory Rate 19 Blood Pressure 118/78 123/106 H Blood Pressure Mean 110 Blood Pressure Position Pulse Oximetry 98 Oxygen Delivery Method Oxygen Flow Rate Sepsis Recent Fever Within 48 Hours Sepsis Action Taken by Nursing Laboratory Data Result diagrams: 11/16/19 02:10 11/16/19 02:10 Lab Results 11/16/19 11/16/19 11/16/19 Range/Units 02:10 02:10 02:10 WBC 6.67 (4.8-10.8) K/uL RBC 4.15 L (4.2-5.4) M/uL Hgb 12.3 (12.0-16.0) g/dL Hct 40.4 (37-47) % MCV 97.3 (80-100) fL MCH 29.6 (25-34) pg MCHC 30.4 L (32-36) g/dL RDW Std Deviation 47.0 H (36.4-46.3) fL RDW Coeff of Annamarie 13.3 (11.5-14.5) % Plt Count 162 (130-400) K/uL MPV 11.1 H (7.4-10.4) fL Immature Gran % (Auto) 0.1 % Neut % (Auto) 68.0 % Lymph % (Auto) 14.1 % [place] % (Auto) 15.7 % Eos % (Auto) 1.8 % Baso % (Auto) 0.3 % Neut # (Auto) 4.53 (1.4-6.5) K/uL Lymph # (Auto) 0.94 L (1.2-3.4) K/uL [place] # (Auto) 1.05 H (0.11-0.59) K/uL Eos # (Auto) 0.12 (0-0.5) K/uL Baso # (Auto) 0.02 (0-0.2) K/uL Immature Gran # (Auto) 0.01 (0.00-0.02) K/uL PT 10.8 (9.0-12.0) Seconds INR 1.0 (0.9-1.1) APTT 28.7 (21.0-31.0) Seconds PTT Ratio 1.0 Sodium 144 (136-145) mmol/L Potassium 2.7 L (3.5-5.1) mmol/L Chloride 99 (98-107) mmol/L Carbon Dioxide 39 H (21-32) mmol/L Anion Gap 6.0 (3-11) BUN 17 (7-18) mg/dl Creatinine 1.26 H (0.6-1.2) mg/dl Est Cr Clr Drug Dosing Not Reportable Est GFR ( Amer) 45.3 Est GFR (Non-Af Amer) 39.1 BUN/Creatinine Ratio 13.3 (10-20) Glucose 136 H (70-99) mg/dl Lactate (0.4-2.0) mmol/L Calcium 8.2 L (8.5-10.1) mg/dl Magnesium 1.8 (1.8-2.4) mg/dl Total Bilirubin 0.4 (0.2-1) mg/dl AST 33 (15-37) U/L ALT 19 (12-78) U/L Alkaline Phosphatase 81 (45-117) U/L Troponin I < 0.015 (0-0.045) ng/ml Total Protein 7.1 (6.4-8.2) gm/dl Albumin 2.6 L (3.4-5.0) gm/dl Globulin 4.5 H (2.5-4.0) gm/dl Albumin/Globulin Ratio 0.6 L (0.9-2) Urine Color Urine Appearance (Clear) Urine pH (4.5-7.5) Ur Specific [place] (1.000-1.030) Urine Protein (Negative) Urine Glucose (UA) (Negative) Urine Ketones (Negative) Urine Blood (Negative) Urine Nitrite (Negative) Urine Bilirubin (Negative) Urine Urobilinogen (Negative) Ur Leukocyte Esterase (Negative) Urine WBC (Auto) (0-5) /hpf Urine RBC (Auto) (0-4) /hpf U Hyaline Cast (Auto) (0-5) /lpf U Epithel Cells (Auto) (0-5) /lpf Urine Bacteria (Auto) (Negative) 11/16/19 11/16/19 Range/Units 02:10 02:20 WBC (4.8-10.8) K/uL RBC (4.2-5.4) M/uL Hgb (12.0-16.0) g/dL Hct (37-47) % MCV (80-100) fL MCH (25-34) pg MCHC (32-36) g/dL RDW Std Deviation (36.4-46.3) fL RDW Coeff of Annamarie (11.5-14.5) % Plt Count (130-400) K/uL MPV (7.4-10.4) fL Immature Gran % (Auto) % Neut % (Auto) % Lymph % (Auto) % [place] % (Auto) % Eos % (Auto) % Baso % (Auto) % Neut # (Auto) (1.4-6.5) K/uL Lymph # (Auto) (1.2-3.4) K/uL [place] # (Auto) (0.11-0.59) K/uL Eos # (Auto) (0-0.5) K/uL Baso # (Auto) (0-0.2) K/uL Immature Gran # (Auto) (0.00-0.02) K/uL PT (9.0-12.0) Seconds INR (0.9-1.1) APTT (21.0-31.0) Seconds PTT Ratio Sodium (136-145) mmol/L Potassium (3.5-5.1) mmol/L Chloride (98-107) mmol/L Carbon Dioxide (21-32) mmol/L Anion Gap (3-11) BUN (7-18) mg/dl Creatinine (0.6-1.2) mg/dl Est Cr Clr Drug Dosing Est GFR ( Amer) Est GFR (Non-Af Amer) BUN/Creatinine Ratio (10-20) Glucose (70-99) mg/dl Lactate 1.1 (0.4-2.0) mmol/L Calcium (8.5-10.1) mg/dl Magnesium (1.8-2.4) mg/dl Total Bilirubin (0.2-1) mg/dl AST (15-37) U/L ALT (12-78) U/L Alkaline Phosphatase (45-117) U/L Troponin I (0-0.045) ng/ml Total Protein (6.4-8.2) gm/dl Albumin (3.4-5.0) gm/dl Globulin (2.5-4.0) gm/dl Albumin/Globulin Ratio (0.9-2) Urine Color Dark Yellow Urine Appearance Cloudy A (Clear) Urine pH 5.0 (4.5-7.5) Ur Specific [place] 1.015 (1.000-1.030) Urine Protein 1+ H (Negative) Urine Glucose (UA) Negative (Negative) Urine Ketones Negative (Negative) Urine Blood 1+ H (Negative) Urine Nitrite Negative (Negative) Urine Bilirubin Negative (Negative) Urine Urobilinogen Negative (Negative) Ur Leukocyte Esterase 2+ H (Negative) Urine WBC (Auto) >30 H (0-5) /hpf Urine RBC (Auto) 5-10 H (0-4) /hpf U Hyaline Cast (Auto) >30 H (0-5) /lpf U Epithel Cells (Auto) 10-20 H (0-5) /lpf Urine Bacteria (Auto) Negative (Negative) Administered Medications Sodium Chloride (Nss 1000ml) 1,000 mls @ 150 mls/hr IV .[id number] Stop: 12/16/19 01:29 Last Admin: 11/16/19 01:30 Dose: 150 mls/hr Documented by: [id number] Discontinued Medications Sodium Chloride (Nss 1000ml) 500 mls @ 999 mls/hr IV .Q31M ONE Stop: 11/16/19 01:55 Last Infusion: 11/16/19 03:23 Dose: 0 mls/hr Documented by: [id number] Admin: 11/16/19 02:39 Dose: 999 mls/hr Documented by: [id number] Potassium Chloride (K Champ / Wtr) 10 meq in 100 mls @ 100 mls/hr IV ONE ONE Stop: 11/16/19 03:49 Last Infusion: 11/16/19 04:11 Dose: 0 mls/hr Documented by: [id number] Admin: 11/16/19 03:19 Dose: 100 mls/hr Documented by: [id number] Ceftriaxone Sodium (Rocephin) 1,000 mg in 50 mls @ 100 mls/hr IV NOW STA Stop: 11/16/19 03:34 Last Infusion: 11/16/19 04:11 Dose: 0 mls/hr Documented by: [id number] Admin: 11/16/19 03:41 Dose: 100 mls/hr Documented by: [id number] Metoprolol Tartrate (Lopressor) 2.5 mg IV NOW STA Stop: 11/16/19 02:37 Last Admin: 11/16/19 03:08 Dose: 2.5 mg Documented by: [id number] Metoprolol Tartrate (Lopressor) 2.5 mg IV NOW STA Stop: 11/16/19 03:10 Last Admin: 11/16/19 03:19 Dose: 2.5 mg Documented by: [id number] Discharge Plan Visit Data Chief Complaint: Fever Stated Complaint: FEVER,FIDGETING (SEIZURE ?) ED Provider: Zan Edwards Discharge Problem: Acute hypotension, Syncope, Atrial fibrillation with rapid ventricular response Forms Stand Alone Forms: [facility] [employer] Prescriptions Prescriptions: No Action sertraline 50 mg Tablet 50 mg PO DAILY Qty: 0 RF: 0 metoprolol succinate 50 mg Tablet Extended Release 24 Hr 50 mg PO DAILY Qty: 0 RF: 0 pantoprazole 40 mg Tablet,Delayed Release (Dr/Ec) 40 mg PO DAILY Qty: 0 RF: 0 nitroglycerin 0.4 mg Tablet, Sublingual 0.4 mg sublingual UD PRN (Reason: Chest Pain) Qty: 0 RF: 0 cholecalciferol (vitamin D3) 4,000 unit Tablet 4,000 unit PO DAILY Qty: 0 RF: 0 sertraline 25 mg Tablet 25 mg PO DAILY Qty: 0 RF: 0 calcium carbonate-vitamin D3 [Calcium 500 + D] 500 mg(1,250mg) -200 unit Tablet 1 tab PO DAILY Qty: 0 RF: 0 furosemide 40 mg tablet 40 mg PO DAILY RF: 0 alendronate 70 mg tablet 70 mg PO SHERWOOD@0900 RF: 0 lorazepam 0.5 mg tablet 0.5 mg PO TID PRN (Reason: Anxiety) RF: 0 benzonatate 100 mg capsule 100 mg PO TID PRN (Reason: Cough) RF: 0 albuterol sulfate [ProAir HFA] 90 mcg/actuation HFA aerosol inhaler 2 inh inhalation QID RF: 0 diclofenac sodium 1 % gel 4 g topical BID PRN (Reason: Pain) RF: 0 Vitron-C 65 mg iron- 125 mg Tablet,Delayed Release (Dr/Ec) 1 tab PO DAILY RF: 0
[2019-11-16] MEDS ORDERED: POTASSIUM CHLORIDE / WTR 10 MEQ/100 ML PLCT IV ONE (02:50)
[2019-11-16 02:51] LABS: Albumin Globulin Ratio 0.6 (0.9-2); Alkaline Phosphatase 81 U/L (45-117); Bilirubin,Total 0.4 mg/dl (0.2-1); Globulin 4.5 gm/dl (2.5-4.0); Total Protein 7.1 gm/dl (6.4-8.2); Troponin I < 0.015 ng/ml (0-0.045)
[2019-11-16 02:53] LABS: Appearance Urine Cloudy (Clear); Bacteria Urine Automated Negative (Negative); Bilirubin Urine Negative (Negative); Blood Urine 1+ (Negative); Color Urine Dark Yellow; Glucose Urine UA Negative (Negative); Ketones Urine Negative (Negative); Leukocyte Esterase Urine 2+ (Negative); Nitrite Urine Negative (Negative); Protein Urine 1+ (Negative); Specific Gravity Urine 1.015 (1.000-1.030); Urobilinogen Urine Negative (Negative); WBC Urine Automated >30 /hpf (0-5)
[2019-11-16] MEDS ORDERED: cefTRIAXone SODIUM 1,000 MG/50 ML BAG IV STA (03:05)
[2019-11-16 03:47] LABS: Cast Urine Automated >30 /lpf (0-5)
[2019-11-16] MEDS ORDERED: POTASSIUM CHLORIDE 20 MEQ/15 ML UDC PO STA (04:52)
[2019-11-16] MEDS ORDERED: POTASSIUM CHLORIDE / WTR 10 MEQ/100 ML PLCT IV STA (04:52)
--- NOTE | 2019-11-16 06:02 | History and Physical Report ---
DATE OF ADMISSION: 11/16/2019 CHIEF COMPLAINT: Near syncope and fever. HISTORY OF PRESENT ILLNESS: This is an 84-year-old female. She is a Kosovan-speaking lady who lives with her daughter. Daughter is at bedside who gives the history. Was brought in because of fever and near syncope. The patient's past medical history is significant for history of CVA, history of cerebral bleed in 2016 as per daughter, history of cerebral amyloid angiopathy, chronic diastolic CHF, venous insufficiency, atherosclerosis of leg with intermittent claudication, chronic hypoxic respiratory failure, on home oxygen all the time, history of small-bowel obstruction, history of gastroesophageal reflux disease, vitamin D deficiency, osteoarthritis, senile osteoporosis, multiple closed fractures of the ribs on both sides, idiopathic progressive polyneuropathy, hearing loss, vitamin B12 deficiency, iron deficiency anemia, anxiety, depression, history of ventral hernia repair, who was brought in because of fever and near syncope. As per daughter, the patient had a couple of episodes of fever yesterday which resolved with aspirin and tonight she was having near syncope kind of episodes. The patient had 1 episode in the bed when sleeping and when daughter went to the room, she had another episode where she rolled her eyes back and seemed to pass away and it lasted for a few seconds and she came back to her usual self. Called EMS, before the EMS came, she had several more episodes. Afebrile today. In the ER, she was found to be in rapid AFib. Sometimes, heart rate is going into 170s to 180s. She was given a couple of doses of 2.5 mg IV Lopressor, currently heart rate seems to be in the 90s and suddenly goes into 170s to 180s for brief period of time. She is hypokalemic and UA came back as positive. Currently seems comfortable. Denies any headache, no blurred vision, no runny nose, no sore throat. She has chronic cough. No loss of sense of smell or taste. Appetite is okay. No difficulty swallowing, no chest pain, no shortness of breath. When the heart rate goes fast, she feels palpitations. No nausea, no abdominal pain. Normal bowel and bladder movements. No rash, no swelling in the legs. Hemodynamics are stable. ALLERGIES: NUT AND BENADRYL. PAST MEDICAL HISTORY: As mentioned above. PAST SURGICAL HISTORY: Colonoscopy with biopsy, EGD with endoscopic ultrasound, appendectomy, cataract surgery, cholecystectomy, partial removal of stomach for ulcer at the age of 48. MEDICATIONS: The patient is on albuterol ProAir 2 puffs inhalation q.i.d., alendronate 70 mg p.o. on Sundays, benzoate 100 mg p.o. t.i.d. p.r.n., calcium plus vitamin D 1 capsule daily, vitamin D 4000 units p.o. daily, diclofenac sodium 4 grams topically b.i.d. p.r.n., Lasix 40 mg p.o. daily, lorazepam 0.5 mg p.o. t.i.d. p.r.n., metoprolol succinate 50 mg p.o. daily, nitroglycerin 0.4 mg sublingual p.r.n., Protonix 40 mg p.o. daily, Zoloft 75 mg p.o. daily, Vitron-C 1 tablet p.o. daily. FAMILY HISTORY: No family history on file. SOCIAL HISTORY: , lives with her daughter. No smoking, no alcohol, no drug use. REVIEW OF SYSTEMS: As per HPI. Rest of the review of systems negative. PHYSICAL EXAMINATION: GENERAL: The patient is old and frail, not in acute distress. VITAL SIGNS: Temperature 37.2, pulse ranging in the 180s today, blood pressure 123/106, respiratory rate 20, oxygen 97% on room air. HEENT: No pallor, no icterus. Pupils equal, round, and reactive to light. NECK: No JVD, no neck masses, no carotid bruits. CARDIOVASCULAR: S1, S2 heard. Tachycardia, irregular rhythm. No murmurs. RESPIRATORY SYSTEM: Normal AP diameter. No accessory muscle use. No wheezing, no crackles. ABDOMEN: Soft, bowel sounds present, nontender. No distention. CENTRAL NERVOUS SYSTEM: Alert and oriented. Obeys simple commands. Moves extremities. EXTREMITIES: No edema, no erythema. LABORATORY DATA: WBC 6.6, hemoglobin 12.3, hematocrit 40.4, platelets 162. PT 10.9, INR 1, APTT 28.7. Sodium 144, potassium 2.7, chloride 99, bicarbonate 29, BUN 17, creatinine 1.2, serum glucose 136, lactate 1.1, calcium 8.2, magnesium 1.8, total bilirubin 0.4, AST 33, ALT 19, alkaline phosphatase 81, troponin I less than 0.015. Urinalysis positive for leukocyte esterase. IMAGING DATA: Chest x-ray, probable mild congestion and cardiomegaly. Head CT, no acute findings on the preliminary report. EKG: Atrial fibrillation with rapid ventricular response with PVCs at the rate of 117. ASSESSMENT AND PLAN: This 84-year-old female presents with on and off fever for the last couple of days and also near syncope. 1. Near syncope most likely secondary to dysrhythmia from rapid atrial fibrillation. Received a couple doses of iv Lopressor 2.5 mg in the ER, but still heart rate suddenly goes into 170s to 180s in a brief period of time. Will continue with iv Lopressor prn.. Follow the serial cardiac enzymes, echocardiogram. Monitor in tele floor. Consult cardiology in the a.m. The patient has history of cerebral bleed in 2016 as per daughters. Will hold anticoagulation for now. 2. Hypokalemia. Potassium of 2.7,possibly contributing for a fib. We will replace potassium. Follow the repeat labs. 3. Acute kidney injury on chronic kidney disease stage III, baseline creatinine seems to be around normal 0.7, presently creatinine of 1.2. Getting fluids. Follow the repeat labs. 4. Urinary tract infection. Having fever for the last 2 days, mostly likely secondary to urinary tract infection. On Rocephin. Will follow the cultures. 5. Chronic hypoxic respiratory failure on oxygen all the time, which will continue. 6. Chronic diastolic congestive heart failure, holding the Lasix. Continue Toprol-XL. Getting gentle fluids. Monitor for fluid overload. 7. History of cerebrovascular accident, not on any medications for now because of cerebral bleed. 8. Hypertension. Holding diuretics, on Toprol-XL. Will monitor the blood pressure. 9. Anxiety and depression, on Zoloft and Ativan p.r.n. 10. Gastroesophageal reflux disease, on Protonix. 11. Senile osteoporosis and osteoarthritis of both knees. PT and OT when stable. 12. Deep venous thrombosis prophylaxis, sequential compression devices for now. 13. Disposition: Closely monitor in the tele floor. Level 1 full code as per my discussion with the daughter. PT and OT prior to discharge. Social service to help with discharge planning. [facility]
[2019-11-16] MEDS ORDERED: LORazepam 0.5 MG TAB PO PRN (06:20)
[2019-11-16] MEDS ORDERED: STAT IV Infusion **Titration per Protocol STA (06:20)
[2019-11-16] MEDS ORDERED: BENZONATATE 100 MG CAPSULE PO PRN (06:20)
[2019-11-16] MEDS ORDERED: NITROGLYCERIN SL 0.4 MG/TAB TAB SL PRN ×2 (06:20)
[2019-11-16] MEDS ORDERED: DICLOFENAC SOD 1% GEL 100 GM TUBE EXT PRN (06:20)
[2019-11-16] MEDS ORDERED: METOPROLOL TARTRATE 1 MG/ML VIAL IV PRN (06:40)
[2019-11-16] MEDS: NSS + 20MEQ KCL 20 MEQ/1,000 ML BAG IV SCH ×2 (06:42→21:54)
[2019-11-16] MEDS ORDERED: dilTIAZem HCL 125 MG in DEXTROSE 5% 100 ML IV SCH (06:45)
--- NOTE | 2019-11-16 06:54 | CT Scan Report ---
CT head/brain wo con CLINICAL HISTORY: headache COMPARISON STUDY: 04/21/2016 TECHNIQUE: Axial CT of the brain is performed from the vertex to the skull base. IV contrast was not administered for this examination. A dose lowering technique was utilized adhering to the principles of ALARA. CT DOSE: 921.40 mGy.cm FINDINGS: No intra or extra-axial mass lesions are visualized. There is no CT evidence of acute cortical infarc tion. There is no evidence of midline shift. There is no acute hemorrhage. No calvarial fractures ar e visualized. There are moderately extensive white matter hypodensities likely on a small vessel basis. There is no evidence of pathologic ventricular dilatation. There is no evidence of acute sinusitis IMPRESSION: No acute intracranial findings ACT 112: Negative or not required by law. Electronically signed by: Buck English M.D. 11/16/2019 6:52 AM
[2019-11-16 07:14] LABS: Basophils # (auto) 0.01 K/uL (0-0.2); Basophils % (auto) 0.2 %; Eosinophils # (auto) 0.06 K/uL (0-0.5); Eosinophils % (auto) 1.1 %; Hematocrit (blood only) 37.6 % (37-47); Hemoglobin 11.7 g/dL (12.0-16.0); Immature Granulocytes # (auto) 0.01 K/uL (0.00-0.02); Immature Granulocytes % (auto) 0.2 %; Lymphocytes # (auto) 1.01 K/uL (1.2-3.4); Lymphocytes % (auto) 17.9 %; Mean Corpuscular Hemoglobin 29.7 pg (25-34); Mean Corpuscular Hgb Conc 31.1 g/dL (32-36); Mean Corpuscular Volume 95.4 fL (80-100); Mean Platelet Volume 10.8 fL (7.4-10.4); Monocytes # (auto) 0.95 K/uL (0.11-0.59); Monocytes % (auto) 16.8 %; Neutrophils % (auto) 63.8 %; Platelet Count 158 K/uL (130-400); RDW Coefficient of Variation 13.2 % (11.5-14.5); RDW Standard Deviation 46.3 fL (36.4-46.3); Red Blood Count 3.94 M/uL (4.2-5.4); White Blood Count 5.64 K/uL (4.8-10.8)
[2019-11-16 07:42] LABS: BUN Creatinine Ratio 13.7 (10-20); Blood Urea Nitrogen 15 mg/dl (7-18); Calcium 8.3 mg/dl (8.5-10.1); Carbon Dioxide 37 mmol/L (21-32); Chloride 103 mmol/L (98-107); Creatinine Clr Calc Pharmacy 40.3 ml/min; Est GFR (African American) 52.2; Est GFR (Non-African American) 45.1; Glucose 117 mg/dl (70-99); Magnesium 1.9 mg/dl (1.8-2.4); Potassium 3.9 mmol/L (3.5-5.1); Sodium 142 mmol/L (136-145)
[2019-11-16 07:49] LABS: Troponin I < 0.015 ng/ml (0-0.045)
--- NOTE | 2019-11-16 07:52 | XRay Report ---
XR chest 1V portable HISTORY: 84 years-old Female SEPSIS acute sepsis COMPARISON: Chest and rib radiographs 04/23/2016, CTA chest 01/03/2019 TECHNIQUE: Semierect portable AP view of the chest FINDINGS: Globular rounded morphology of a moderately enlarged heart appears similar to comparison. Tortuosity of the descending thoracic aorta. Calcified plaque of the thoracic aortic arch. Chronic interstitial coarsening. No pneumothorax, pleural effusion, overt pulmonary edema or airspace consolidation typica l for pneumonia. Degenerative changes of the shoulders and spine. IMPRESSION: 1. Cardiomegaly without acute process. 2. Mild chronic interstitial coarsening. ACT 112: Negative or not required by law. The above report was generated using voice recognition software. It may contain grammatical, syntax o r spelling errors. Electronically signed by: Eleazar Ramirez M.D. 11/16/2019 7:51 AM
[2019-11-16] MEDS: SERTRALINE HCL 50 MG TABLET PO SCH ×2 (08:40→08:42)
[2019-11-16] MEDS: PANTOprazole 40 MG TAB PO SCH (08:41)
[2019-11-16] MEDS: CHOLECALCIFEROL 1,000 UNITS 25 MCG TAB PO SCH (08:41)
[2019-11-16] MEDS: METOPROLOL SUCC 50MG EXT REL TAB PO SCH (08:41)
[2019-11-16] MEDS: CALCIUM 600MG + VIT D 400 IU TAB PO SCH (08:42)
--- NOTE | 2019-11-16 08:44 | Cardiology Consultation ---
Date of Consultation November 16, 2019 Assessment & Plan (1) PAT (paroxysmal atrial tachycardia): Patient presented with syncope or near syncope possibly in association with an acute febrile illness. EKGs and rhythm strips reflect paroxysmal atrial tachycardia/multifocal atrial tachycardia rather than atrial fibrillation. Rates are rapid at times and patient poorly tolerant of arrhythmia historically. Patient would be at elevated risk for mechanical intervention/ablation Plan: We will initiate antiarrhythmic therapy with amiodarone with IV bolus then oral dosing. Will reduce metoprolol dosing in a.m., agree with continued potassium supplementation treating underlying potential infectious process LV systolic function is mildly decreased we will follow his clinical course proceeds likely add ZULEYKA inhibitor regimen as blood pressure and process allows (2) Syncope: Patient personally unaware of complete syncope, suspect arrhythmia induced with treatments plan as above (3) Cerebral amyloid angiopathy: Intracranial hemorrhage in the setting of diagnosis of cerebral amyloid angiopathy absolute contraindication to anticoagulation and antiplatelet therapies (4) CVA (cerebrovascular accident due to intracerebral hemorrhage): (5) Hypertension: History of Present Illness Reason for Consultation: Paroxysmal atrial tachycardia, near syncope Requesting Physician: Dr. Yin Attending Physician: Adina Yin MD History of Present Illness 84-year-old female from [facility] with language barrier and with ongoing issues per outpatient records 1. History of CVA in 2009 2. Spontaneous intraparenchymal intracranial hemorrhage felt to be secondary to cerebral amyloid angiopathy 2015 3. Longstanding hypertension with hypertensive heart disease. 4. Anxiety 5. Depression 6. GERD 7. Obesity 8. Iron deficiency anemia 9. Vitamin d deficiency 10. B12 deficiency 11. Idiopathic polyneuropathy 12. Venous insufficiency 13. O2 dependent chronic respiratory failure 14. Large ventral hernia with past small bowel obstruction Patient is referred for ongoing atrial arrhythmias. Presents this admission with symptoms of fever and then sudden onset near syncopal events with racing heart palpitations. Patient examined with the use of telephonic/video advanced practice registered nurse Records reflect a possible febrile illness as presenting cause. Patient notes having symptoms of pressure across the back of her head followed by dizziness and near syncope. On 2 episodes. Denies chest pains or discomfort notes no productive cough. Notes no bleeding difficulties. Does wear oxygen at home. No worsening edema or weight gain. Appetite generally good. No issues taking medications Laboratory studies notable on presentation were elevated white cell count and hypokalemia. Telemetry this morning continues to demonstrate salvos of paroxysmal atrial tachycardia (not atrial fibrillation) Patient has contraindication to anticoagulation with diagnosis of cerebral amylo id angiopathy Allergies Allergy/AdvReac Type Severity Reaction Status Date / Time diphenhydramine Allergy Severe ANAPHYLAXIS Verified 11/16/19 03:32 TO DIMEDROL-diphenhydramine is active ingredient nut - unspecified Allergy Severe ANAPHYLAXIS Verified 11/16/19 03:32 Home Medications Home Medications Medication Instructions Recorded Confirmed Type sertraline 50 mg PO DAILY #0 tab 12/15/13 11/16/19 History metoprolol succinate 50 mg PO DAILY #0 tab 12/26/13 11/16/19 History nitroglycerin 0.4 mg SUBLINGUAL UD PRN #0 btl 12/26/13 11/16/19 History pantoprazole 40 mg PO DAILY #0 tab 12/26/13 11/16/19 History cholecalciferol (vitamin D3) 4,000 unit PO DAILY #0 tab 12/25/15 11/16/19 History calcium carbonate-vitamin D3 1 tab PO DAILY #0 04/12/16 11/16/19 History [Calcium 500 + D] sertraline 25 mg PO DAILY #0 tab 04/12/16 11/16/19 History Vitron-C 1 tab PO DAILY 01/03/19 11/16/19 History albuterol sulfate [ProAir HFA] 2 inh INHALATION QID 01/03/19 11/16/19 History alendronate 70 mg PO SHERWOOD@0900 01/03/19 11/16/19 History benzonatate 100 mg PO TID PRN 01/03/19 11/16/19 History diclofenac sodium 4 g TOPICAL BID PRN 01/03/19 11/16/19 History furosemide 40 mg PO DAILY 01/03/19 11/16/19 History lorazepam 0.5 mg PO TID PRN 01/03/19 11/16/19 History Patient History Medical History Abdominal pain (Acute) Chronic respiratory failure with hypoxia (Chronic) Diastolic heart failure (Chronic) Hypertension (Chronic) Iron deficiency anemia (Chronic) Mood disorder (Chronic) Venous insufficiency (Chronic) Surgical History History of appendectomy (Chronic) History of partial gastrectomy (Chronic) Hx of cholecystectomy (Chronic) Family History Other Osteoporosis Social History Preferred Language: Kuwaiti Communication Ability: Effective Communication Tools: IPad, Letter Board, Picture Board and Physical Gestures Gynaecological Oncologist Required: Yes Beliefs That Will Affect Care: None Current Living Situation: Family Current Living Situation Comment: lives with daughter Other Information That Helps Us Care for You: No Feels Safe at Home: Yes Safety Concerns: Feels Safe At This Time Smoking Status: Never smoker Hx Alcohol Use: No Hx Substance Use: No Review of Systems Review of Systems: All systems reviewed & are unremarkable except as noted in HPI & below Physical Exam Constitutional: WD/WN, vitals as above + obese Eyes: PERRL, conjunctivae normal, anicteric sclerae ENMT: external ear and nose normal, oropharynx normal Neck: trachea midline, no thyromegaly Respiratory: normal respiratory effort, lungs clear to auscultation Cardiovascular: Rate/Rhythm: regular rate and regular rhythm Heart Sounds: normal S1, normal S2 and + murmur (Grade 1/6 systolic, no diastolic); no gallop Palpation: normal PMI Vessels: normal carotid upstroke and radial pulses present; no JVD and no carotid bruit Extremities: no edema Gastrointestinal (Abdomen): normal bowel sounds, soft, nontender, no hepatosplenomegaly Percussion/Palpation: + hernia (Large ventral but soft and reducible) Musculoskeletal: no cyanosis or clubbing, extremities motor strength 5/5 Skin: no rashes, warm and dry Neurologic: PERRL, EOMI, accommodation nl, no face palsy, no dysarthria Psychiatric: A+Ox3, euthymic affect Results & Data ([facility]) Vital Signs (Past 12 Hours) Vital Signs Temp Pulse Pulse Resp BP BP Pulse Ox 11/16/19 06:23 37.0 C 96 H 16 121/73 98 11/16/19 05:30 92 H 19 119/73 98 11/16/19 05:01 93 H 14 111/84 97 11/16/19 04:57 109 H 17 115/99 95 11/16/19 04:50 135 H 15 95 11/16/19 04:00 188 H 20 97 11/16/19 03:30 114 H 19 123/106 H 98 11/16/19 03:19 187 H 118/78 11/16/19 03:14 98 H 21 118/78 97 11/16/19 03:08 188 H 140/100 11/16/19 02:30 114 H 25 H 140/100 98 11/16/19 02:00 115 H 17 124/80 98 11/16/19 01:45 105 H 20 95 11/16/19 01:01 37.2 C 96 H 19 89/56 L 98 Laboratory Results Laboratory Results - last 24 hr 11/16/19 11/16/19 11/16/19 02:10 02:10 02:10 WBC 6.67 RBC 4.15 L Hgb 12.3 Hct 40.4 MCV 97.3 MCH 29.6 MCHC 30.4 L RDW Std Deviation 47.0 H RDW Coeff of Annamarie 13.3 Plt Count 162 MPV 11.1 H Immature Gran % (Auto) 0.1 Neut % (Auto) 68.0 Lymph % (Auto) 14.1 Citrus % (Auto) 15.7 Eos % (Auto) 1.8 Baso % (Auto) 0.3 Neut # (Auto) 4.53 Lymph # (Auto) 0.94 L Citrus # (Auto) 1.05 H Eos # (Auto) 0.12 Baso # (Auto) 0.02 Immature Gran # (Auto) 0.01 PT 10.8 INR 1.0 APTT 28.7 PTT Ratio 1.0 Sodium 144 Potassium 2.7 L Chloride 99 Carbon Dioxide 39 H Anion Gap 6.0 BUN 17 Creatinine 1.26 H Est Cr Clr Drug Dosing Not Reportable Est GFR ( Amer) 45.3 Est GFR (Non-Af Amer) 39.1 BUN/Creatinine Ratio 13.3 Glucose 136 H Lactate Calcium 8.2 L Magnesium 1.8 Total Bilirubin 0.4 AST 33 ALT 19 Alkaline Phosphatase 81 Troponin I < 0.015 Total Protein 7.1 Albumin 2.6 L Globulin 4.5 H Albumin/Globulin Ratio 0.6 L Urine Color Urine Appearance Urine pH Ur Specific Wheeler Urine Protein Urine Glucose (UA) Urine Ketones Urine Blood Urine Nitrite Urine Bilirubin Urine Urobilinogen Ur Leukocyte Esterase Urine WBC (Auto) Urine RBC (Auto) U Hyaline Cast (Auto) U Epithel Cells (Auto) Urine Bacteria (Auto) 11/16/19 11/16/19 11/16/19 02:10 02:20 06:52 WBC 5.64 RBC 3.94 L Hgb 11.7 L Hct 37.6 MCV 95.4 MCH 29.7 MCHC 31.1 L RDW Std Deviation 46.3 RDW Coeff of Annamarie 13.2 Plt Count 158 MPV 10.8 H Immature Gran % (Auto) 0.2 Neut % (Auto) 63.8 Lymph % (Auto) 17.9 Citrus % (Auto) 16.8 Eos % (Auto) 1.1 Baso % (Auto) 0.2 Neut # (Auto) 3.60 Lymph # (Auto) 1.01 L Citrus # (Auto) 0.95 H Eos # (Auto) 0.06 Baso # (Auto) 0.01 Immature Gran # (Auto) 0.01 PT INR APTT PTT Ratio Sodium Potassium Chloride Carbon Dioxide Anion Gap BUN Creatinine Est Cr Clr Drug Dosing Est GFR ( Amer) Est GFR (Non-Af Amer) BUN/Creatinine Ratio Glucose Lactate 1.1 Calcium Magnesium Total Bilirubin AST ALT Alkaline Phosphatase Troponin I Total Protein Albumin Globulin Albumin/Globulin Ratio Urine Color Dark Yellow Urine Appearance Cloudy A Urine pH 5.0 Ur Specific Wheeler 1.015 Urine Protein 1+ H Urine Glucose (UA) Negative Urine Ketones Negative Urine Blood 1+ H Urine Nitrite Negative Urine Bilirubin Negative Urine Urobilinogen Negative Ur Leukocyte Esterase 2+ H Urine WBC (Auto) >30 H Urine RBC (Auto) 5-10 H U Hyaline Cast (Auto) >30 H U Epithel Cells (Auto) 10-20 H Urine Bacteria (Auto) Negative 11/16/19 06:52 WBC RBC Hgb Hct MCV MCH MCHC RDW Std Deviation RDW Coeff of Annamarie Plt Count MPV Immature Gran % (Auto) Neut % (Auto) Lymph % (Auto) Citrus % (Auto) Eos % (Auto) Baso % (Auto) Neut # (Auto) Lymph # (Auto) Citrus # (Auto) Eos # (Auto) Baso # (Auto) Immature Gran # (Auto) PT INR APTT PTT Ratio Sodium 142 Potassium 3.9 D Chloride 103 Carbon Dioxide 37 H Anion Gap 2.0 L BUN 15 Creatinine 1.12 Est Cr Clr Drug Dosing 40.3 Est GFR ( Amer) 52.2 Est GFR (Non-Af Amer) 45.1 BUN/Creatinine Ratio 13.7 Glucose 117 H Lactate Calcium 8.3 L Magnesium 1.9 Total Bilirubin AST ALT Alkaline Phosphatase Troponin I < 0.015 Total Protein Albumin Globulin Albumin/Globulin Ratio Urine Color Urine Appearance Urine pH Ur Specific Wheeler Urine Protein Urine Glucose (UA) Urine Ketones Urine Blood Urine Nitrite Urine Bilirubin Urine Urobilinogen Ur Leukocyte Esterase Urine WBC (Auto) Urine RBC (Auto) U Hyaline Cast (Auto) U Epithel Cells (Auto) Urine Bacteria (Auto) ECG Additional Comments: EKG on presentation: Multifocal atrial tachycardia, rate 117 bpm
[2019-11-16] MEDS: ALBUTEROL HFA 8 GM INHALER INH SCH ×4 (09:27→19:09)
[2019-11-16] MEDS ORDERED: 0.2 MICRON FILTER SET 1 EA IV ONE (09:47)
[2019-11-16] MEDS ORDERED: AMIODARONE / D5W 150 MG/100 ML BAG IV STA (09:51)
[2019-11-16] MEDS: AMIODARONE 200 MG TAB PO SCH ×3 (12:54→20:22)
--- NOTE | 2019-11-16 14:39 | Hospitalist Progress Note ---
Date of Service November 16, 2019 Assessment & Plan (1) PAT (paroxysmal atrial tachycardia): PAT (paroxysmal atrial tachycardia): Patient presented with syncope or near syncope EKG /Tele shows : paroxysmal atrial tachycardia/multifocal atrial tachycardia -no atrial fibrillation. appreciate input from cardiology given IV amiodarone bolus , followed by PO amiodarone 200 mg QID on Toprol XL 50 mg daily ECHO : normal LV function , EF 40-45 % monitor in tele Syncope: possible due to cardiac arrythmia UTI: follow urine culture on IV rocephin Cerebral amyloid angiopathy: hx of Intracranial hemorrhage antiplatelet /anticoagulation contraindicated CVA (cerebrovascular accident due to intracerebral hemorrhage -not on antiplatelets due to bleeding risk Hypertension: KERA ON CKD STAGE 3 : iv fluid /cr improved follow BMP avoid NSAID /contrast studies Chronic hypoxic respiratory failure : on home 02 (2) Syncope: (3) History of partial gastrectomy: Morbidly obese, BMI 41.2 wt reduction /heart healthy diet /exercise recommended FULL CODE DVT PROPHYLAXIS : SCD AND TEDS DISPOSITION : lives at home with daughter PT/OT eval will be discharged home with family when medically stable Admission and Anticipated Discharge Date Admission Date: November 16, 2019 Subjective pt seen at bedside Daughter present, most of the complications was done through daughter-, as educational interpreter, patient does not speak Irish Apparently patient has been doing much better since admission, did not had any dizzy spells no syncope tach Shortness of breath, dyspnea on exertion has improved Heart rate on telemetry remains between [id number] No complaint of chest pain, no fever chills or cough Review of Systems Review of Systems: All systems reviewed & are unremarkable except as noted in HPI & below Physical Exam Constitutional: WD/WN, vitals as above Eyes: PERRL, conjunctivae normal, anicteric sclerae ENMT: external ear and nose normal, oropharynx normal Neck: normal visual inspection Respiratory: normal respiratory effort, lungs clear to auscultation Cardiovascular: RRR, no murmur, no edema Rate/Rhythm: regular rate and regular rhythm Gastrointestinal (Abdomen): Percussion/Palpation: abdomen soft; abdomen nontender Musculoskeletal: no cyanosis or clubbing, extremities motor strength 5/5 Skin: no rashes, warm and dry Neurologic: PERRL, EOMI, accommodation nl, no face palsy, no dysarthria Psychiatric: A+Ox3, euthymic affect Results & Data Results & Data ([facility]) Vital Signs (Past 12 Hours) Vital Signs Temp Pulse Pulse Pulse Resp BP BP 11/16/19 12:08 37.0 C 17 104/78 11/16/19 11:19 78 18 11/16/19 08:00 97 H 11/16/19 07:00 37.2 C 74 117 H 28 H 102/79 11/16/19 06:23 37.0 C 96 H 16 121/73 11/16/19 05:30 92 H 19 119/73 11/16/19 05:01 93 H 14 111/84 11/16/19 04:57 109 H 17 115/99 11/16/19 04:50 135 H 15 11/16/19 04:00 188 H 20 11/16/19 03:30 114 H 19 123/106 H 11/16/19 03:19 187 H 118/78 11/16/19 03:14 98 H 21 118/78 11/16/19 03:08 188 H 140/100 Pulse Ox 11/16/19 12:08 98 11/16/19 11:19 94 11/16/19 08:00 11/16/19 07:00 11/16/19 06:23 98 11/16/19 05:30 98 11/16/19 05:01 97 11/16/19 04:57 95 11/16/19 04:50 95 11/16/19 04:00 97 11/16/19 03:30 98 11/16/19 03:19 11/16/19 03:14 97 11/16/19 03:08
[2019-11-17] MEDS: cefTRIAXone SODIUM 1,000 MG in DEXTROSE 5% 50 ML IV SCH (04:30)
--- NOTE | 2019-11-17 04:42 | Electrocardiogram Report ---
Test Reason : Blood Pressure : / mmHG Vent. Rate : 117 BPM Atrial Rate : 117 BPM P-R Int : 000 ms QRS Dur : 092 ms QT Int : 352 ms P-R-T Axes : 000 -20 045 degrees QTc Int : 491 ms Probable Multifocal atrial tachycardia with PVCs Minimal voltage criteria for LVH, may be normal variant Abnormal ECG When compared with ECG of 03-JAN-2019 08:17, Multifocal atrial tachycardia has replaced Sinus rhythm Vent. rate has increased BY 43 BPM Confirmed by Harrison Saini ([id number]) on 11/17/2019 4:42:02 AM Referred By: REFERRED SELF Confirmed By:Harrison Saini
[2019-11-17] MEDS: ALBUTEROL HFA 8 GM INHALER INH SCH ×4 (06:52→19:11)
[2019-11-17 08:01] LABS: Hematocrit (blood only) 38.2 % (37-47); Hemoglobin 11.7 g/dL (12.0-16.0); Mean Corpuscular Hemoglobin 29.6 pg (25-34); Mean Corpuscular Hgb Conc 30.6 g/dL (32-36); Mean Corpuscular Volume 96.7 fL (80-100); Mean Platelet Volume 10.8 fL (7.4-10.4); Platelet Count 162 K/uL (130-400); RDW Coefficient of Variation 13.1 % (11.5-14.5); RDW Standard Deviation 46.4 fL (36.4-46.3); Red Blood Count 3.95 M/uL (4.2-5.4); White Blood Count 5.45 K/uL (4.8-10.8)
[2019-11-17 08:22] LABS: BUN Creatinine Ratio 11.1 (10-20); Calcium 8.4 mg/dl (8.5-10.1); Creatinine Clr Calc Pharmacy 60.7 ml/min; Est GFR (African American) 87.7; Est GFR (Non-African American) 75.6; Magnesium 1.9 mg/dl (1.8-2.4); Potassium 4.2 mmol/L (3.5-5.1)
[2019-11-17] MEDS: NSS + 20MEQ KCL 20 MEQ/1,000 ML BAG IV SCH ×2 (08:22→10:28)
[2019-11-17] MEDS: AMIODARONE 200 MG TAB PO SCH ×4 (08:22→20:58)
[2019-11-17] MEDS: SERTRALINE HCL 50 MG TABLET PO SCH ×2 (08:34→08:36)
[2019-11-17] MEDS: CALCIUM 600MG + VIT D 400 IU TAB PO SCH (08:35)
[2019-11-17] MEDS: PANTOprazole 40 MG TAB PO SCH (08:35)
[2019-11-17] MEDS: METOPROLOL SUCC 50MG EXT REL TAB PO SCH (08:36)
--- NOTE | 2019-11-17 09:53 | Cardiology Progress Note ---
Date of Service November 17, 2019 Assessment & Plan (1) PAT (paroxysmal atrial tachycardia): Patient presented with syncope or near syncope possibly in association with an acute febrile illness. EKGs and rhythm strips reflect paroxysmal atrial tachycardia/multifocal atrial tachycardia rather than atrial fibrillation. Rates are rapid at times and patient poorly tolerant of arrhythmia historically. Patient would be at elevated risk for mechanical intervention/ablation Plan: We will initiate antiarrhythmic therapy with amiodarone with IV bolus then oral dosing. Will reduce metoprolol dosing in a.m., agree with continued potassium supplementation treating underlying potential infectious process LV systolic function is mildly decreased we will follow his clinical course proceeds likely add ZULEYKA inhibitor regimen as blood pressure and process allows As above patient has received IV amiodarone and now on oral dosing. We will continue previous dosing of metoprolol succinate at 50 mg/day but may need to increase. Add low-dose nitrates to her regimen until ZULEYKA inhibitor can be given. Given positive fluid balance and wheezy cough we will add single dose of IV furosemide with patient previously on oral furosemide prior to admission. IV fluids held (2) Syncope: Patient personally unaware of complete syncope, suspect arrhythmia induced with treatments plan as above (3) Cerebral amyloid angiopathy: Intracranial hemorrhage in the setting of diagnosis of cerebral amyloid angiopathy absolute contraindication to anticoagulation and antiplatelet therapies (4) CVA (cerebrovascular accident due to intracerebral hemorrhage): (5) Hypertension: Subjective No bradycardia arrhythmias Patient was seen and examined, chart, medications, telemetry reviewed. Patient continues to have salvos of paroxysmal atrial tachycardia but nonsustained. No bradycardia arrhythmias Complains of dyspnea this morning and wheezy cough. I's and O's +3 L since admission Physical Exam Constitutional: WD/WN, vitals as above + obese Eyes: PERRL, conjunctivae normal, anicteric sclerae ENMT: external ear and nose normal, oropharynx normal Neck: trachea midline, no thyromegaly Respiratory: Auscultation: + wheezes (Diffuse, increased with cough) Cardiovascular: Rate/Rhythm: regular rate and regular rhythm Heart Sounds: normal S1, normal S2 and + murmur (Grade 1/6 systolic, no diastolic); no gallop Palpation: normal PMI Vessels: normal carotid upstroke and radial pulses present; no JVD and no carotid bruit Extremities: no edema Gastrointestinal (Abdomen): normal bowel sounds, soft, nontender, no hepatosplenomegaly Percussion/Palpation: + hernia (Large ventral but soft and reducible) Musculoskeletal: no cyanosis or clubbing, extremities motor strength 5/5 Skin: no rashes, warm and dry Neurologic: PERRL, EOMI, accommodation nl, no face palsy, no dysarthria Psychiatric: A+Ox3, euthymic affect Results & Data Vital Signs (Past 12 Hours) Vital Signs Temp Pulse Pulse Resp BP Pulse Ox 11/17/19 07:17 37.2 C 68 20 120/78 92 11/17/19 06:53 85 16 96 11/17/19 04:54 37.1 C 75 20 141/88 H 97 11/17/19 00:48 36.8 C 69 18 111/69 95 11/17/19 00:00 84 Laboratory Results Laboratory Results - last 24 hr 11/16/19 11/17/19 11/17/19 13:03 07:12 07:12 WBC 5.45 RBC 3.95 L Hgb 11.7 L Hct 38.2 MCV 96.7 MCH 29.6 MCHC 30.6 L RDW Std Deviation 46.4 H RDW Coeff of Annamarie 13.1 Plt Count 162 MPV 10.8 H Sodium 144 Potassium 4.2 Chloride 107 Carbon Dioxide 35 H Anion Gap 2.0 L BUN 8 D Creatinine 0.73 D Est Cr Clr Drug Dosing 60.7 Est GFR ( Amer) 87.7 Est GFR (Non-Af Amer) 75.6 BUN/Creatinine Ratio 11.1 Glucose 104 H Calcium 8.4 L Magnesium 1.9 Troponin I < 0.015
[2019-11-17] MEDS ORDERED: FUROSEMIDE 20 MG in SYRINGE 0 ML IV ONE (10:00)
[2019-11-17] MEDS: CHOLECALCIFEROL 1,000 UNITS 25 MCG TAB PO SCH (11:13)
[2019-11-17] MEDS: NITROGLYCERIN 2% OINTMENT 30GM TUBE EXT SCH ×3 (11:13→20:58)
[2019-11-17] MEDS ORDERED: LEVALBUTEROL 1.25MG/0.5ML NEB NEB STA (11:45)
[2019-11-17] MEDS ORDERED: LEVALBUTEROL 1.25MG/0.5ML NEB NEB PRN (11:46)
--- NOTE | 2019-11-17 11:58 | Hospitalist Progress Note ---
Date of Service November 17, 2019 Assessment & Plan (1) PAT (paroxysmal atrial tachycardia): PAT (paroxysmal atrial tachycardia): Patient is symptomatic with arrythmia Had dizzy spell lightheadedness, presented with syncope or near syncope (had multiple similar episodes at home) EKG /Tele shows : paroxysmal atrial tachycardia/multifocal atrial tachycardia -no atrial fibrillation. appreciate input from cardiology given IV amiodarone bolus , followed by PO amiodarone 200 mg QID on Toprol XL 50 mg daily Continue to monitor electrolytes, keep potassium above 4, magnesium level of 2 to prevent arrhythmia ECHO : normal LV function , EF 40-45 % monitor in tele Syncope: possible due to cardiac arrythmia CT head: No acute change Patient did not had any further episode of syncope, dizzy spells since admission UTI: follow urine culture -report pending on IV rocephin CHF with diastolic dysfunction: EF 40-45%, patient received IV fluids secondary to acute renal failure Noted to have positive volume balance, Audible wheeze needed bronchospasm noted this morning Lasix 20 mg IV 1 dose given by cardiology IV fluid discontinued, monitor I's and O's PRN nebulizer treatment Ordered proBNP Cerebral amyloid angiopathy: hx of Intracranial hemorrhage antiplatelet /anticoagulation contraindicated History of CVA ( intracerebral hemorrhage-due to cerebral amyloid angiopathy) -not on antiplatelets due to bleeding risk Hypertension: On beta-zari, added Nitropaste, to reduce afterload in the setting of decompensated CHF KERA ON CKD STAGE 3 : Resolved, Creatinine 0.7 at baseline, IV fluid discontinued Given dose of Lasix for volume overload Low-dose ZULEYKA inhibitor will be added after discussion with cardiology secondary to evidence of CHF noted in echocardiogram follow BMP avoid NSAID /contrast studies Chronic hypoxic respiratory failure : on home 02 Wheezing noted today secondary to decompensated CHF, volume overload Ordered for PRN nebs (2) Syncope: (3) History of partial gastrectomy: Morbidly obese, BMI 41.2 wt reduction /heart healthy diet /exercise recommended FULL CODE DVT PROPHYLAXIS : SCD AND TEDS DISPOSITION : lives at home with daughter PT/OT eval requested will be discharged home with family when medically stable Admission and Anticipated Discharge Date Admission Date: November 16, 2019 Subjective Patient sitting on chair, comfortable, does not speak [place], Patient continued to had a paroxysmal episode of atrial tachycardia, Positive wheezing on activity noted, no cough no fever or chills On 3 L oxygen via nasal cannula Review of Systems Review of Systems: All systems reviewed & are unremarkable except as noted in HPI & below Physical Exam Constitutional: WD/WN, vitals as above Eyes: PERRL, conjunctivae normal, anicteric sclerae ENMT: external ear and nose normal, oropharynx normal Neck: normal visual inspection Respiratory: normal respiratory effort; no respiratory distress Auscultation: no crackles, no rales and no wheezes Cardiovascular: RRR, no murmur, no edema Rate/Rhythm: regular rate and regular rhythm Gastrointestinal (Abdomen): Percussion/Palpation: abdomen soft; abdomen nontender Musculoskeletal: no cyanosis or clubbing, extremities motor strength 5/5 Skin: no rashes, warm and dry Neurologic: PERRL, EOMI, accommodation nl, no face palsy, no dysarthria Psychiatric: A+Ox3, euthymic affect Results & Data Results & Data ([facility]) Vital Signs (Past 12 Hours) Vital Signs Temp Pulse Pulse Resp BP Pulse Ox 11/17/19 11:15 72 18 94 11/17/19 11:06 37.1 C 58 L 18 147/102 H 94 11/17/19 07:17 37.2 C 68 20 120/78 92 11/17/19 06:53 85 16 96 11/17/19 04:54 37.1 C 75 20 141/88 H 97 11/17/19 00:48 36.8 C 69 18 111/69 95 11/17/19 00:00 84
[2019-11-17] MEDS: METOPROLOL SUCC 25MG EXT REL TAB PO SCH (20:41)
[2019-11-18] MEDS: NITROGLYCERIN 2% OINTMENT 30GM TUBE EXT SCH ×3 (05:19→16:17)
[2019-11-18] MEDS: cefTRIAXone SODIUM 1,000 MG in DEXTROSE 5% 50 ML IV SCH (05:20)
[2019-11-18 06:59] LABS: BUN Creatinine Ratio 11.1 (10-20); Calcium 8.2 mg/dl (8.5-10.1); Creatinine Clr Calc Pharmacy 54.7 ml/min; Est GFR (African American) 77.3; Est GFR (Non-African American) 66.7; Magnesium 1.8 mg/dl (1.8-2.4); Potassium 3.7 mmol/L (3.5-5.1)
--- NOTE | 2019-11-18 07:14 | Electrocardiogram Report ---
Test Reason : Blood Pressure : / mmHG Vent. Rate : 077 BPM Atrial Rate : 077 BPM P-R Int : 176 ms QRS Dur : 080 ms QT Int : 438 ms P-R-T Axes : 077 -02 -02 degrees QTc Int : 495 ms Sinus rhythm with Premature atrial complexes with Aberrant conduction Prolonged QT Abnormal ECG When compared with ECG of 16-NOV-2019 01:40, Sinus rhythm has replaced Multifocal atrial tachycardia Inverted T waves have replaced nonspecific T wave abnormality in Inferior leads Nonspecific T wave abnormality no longer evident in Lateral leads Confirmed by Harrison Saini ([id number]) on 11/18/2019 7:14:25 AM Referred By: REFERRED SELF Confirmed By:Harrison Saini
[2019-11-18] MEDS: ALBUTEROL HFA 8 GM INHALER INH SCH ×6 (08:02→23:59)
[2019-11-18] MEDS: CHOLECALCIFEROL 1,000 UNITS 25 MCG TAB PO SCH (08:23)
[2019-11-18] MEDS: SERTRALINE HCL 50 MG TABLET PO SCH ×2 (08:23→08:26)
[2019-11-18] MEDS: CALCIUM 600MG + VIT D 400 IU TAB PO SCH (08:23)
[2019-11-18] MEDS: PANTOprazole 40 MG TAB PO SCH (08:24)
[2019-11-18] MEDS: FUROSEMIDE 40 MG TAB PO SCH (08:24)
[2019-11-18] MEDS: METOPROLOL SUCC 50MG EXT REL TAB PO SCH (08:25)
--- NOTE | 2019-11-18 08:48 | XRay Report ---
XR chest 1V portable CLINICAL HISTORY: dyspnea COMPARISON STUDY: 11/16/2019 FINDINGS: The heart is enlarged with aortic tortuosity/ectasia. There is mild vascular/interstitial p rominence without evidence of overt failure. There is no lobar consolidation.[There is scattered area s of subsegmental atelectasis. IMPRESSION: 1. Technically limited study 2. Cardiomegaly with aortic tortuosity/ectasia 3. Interstitial thickening without evidence of overt failure 4. No evidence of lobar consolidation ACT 112: Negative or not required by law. Electronically signed by: Buck English M.D. 11/18/2019 8:47 AM
[2019-11-18] MEDS: AMIODARONE 200 MG TAB PO SCH ×4 (09:11→21:21)
--- NOTE | 2019-11-18 10:17 | Cardiology Progress Note ---
Date of Service November 18, 2019 Assessment & Plan (1) PAT (paroxysmal atrial tachycardia): Patient presented with syncope or near syncope possibly in association with an acute febrile illness. EKGs and rhythm strips reflect paroxysmal atrial tachycardia/multifocal atrial tachycardia rather than atrial fibrillation. Rates are rapid at times and patient poorly tolerant of arrhythmia historically. Patient would be at elevated risk for mechanical intervention/ablation Plan: Patient responding to medical therapies with rhythms coming under substantial improvement. Would continue amiodarone and metoprolol. Increase lisinopril for further hypertension control we will supplement potassium today. Maintain telemetry (2) Syncope: Patient personally unaware of complete syncope, suspect arrhythmia induced with treatments plan as above (3) Cerebral amyloid angiopathy: Intracranial hemorrhage in the setting of diagnosis of cerebral amyloid angiopathy absolute contraindication to anticoagulation and antiplatelet therapies (4) CVA (cerebrovascular accident due to intracerebral hemorrhage): (5) Hypertension: Subjective Patient was seen and examined, chart, medications, telemetry reviewed. Patient looks and feels improved today. Telemetry demonstrates improved arrhythmias. Patient less dyspnea Physical Exam Constitutional: WD/WN, vitals as above + obese Eyes: PERRL, conjunctivae normal, anicteric sclerae ENMT: external ear and nose normal, oropharynx normal Neck: trachea midline, no thyromegaly Respiratory: normal respiratory effort, lungs clear to auscultation Cardiovascular: Rate/Rhythm: regular rate and regular rhythm Heart Sounds: normal S1, normal S2 and + murmur (Grade 1/6 systolic, no diastolic); no gallop Palpation: normal PMI Vessels: normal carotid upstroke and radial pulses present; no JVD and no carotid bruit Extremities: no edema Gastrointestinal (Abdomen): normal bowel sounds, soft, nontender, no hepato splenomegaly Percussion/Palpation: + hernia (Large ventral but soft and reducible) Musculoskeletal: no cyanosis or clubbing, extremities motor strength 5/5 Skin: no rashes, warm and dry Neurologic: PERRL, EOMI, accommodation nl, no face palsy, no dysarthria Psychiatric: A+Ox3, euthymic affect Results & Data Vital Signs (Past 12 Hours) Vital Signs Temp Pulse Resp BP Pulse Ox 11/18/19 07:48 37.0 C 79 24 142/91 H 91 11/18/19 04:44 36.6 C 64 18 132/83 99 11/18/19 00:45 37.1 C 68 18 157/83 H 99 Laboratory Results Laboratory Results - last 24 hr 11/17/19 11/18/19 07:12 05:35 Sodium 141 Potassium 3.7 Chloride 104 Carbon Dioxide 34 H Anion Gap 3.0 BUN 9 Creatinine 0.81 Est Cr Clr Drug Dosing 54.7 Est GFR ( Amer) 77.3 Est GFR (Non-Af Amer) 66.7 BUN/Creatinine Ratio 11.1 Glucose 98 Calcium 8.2 L Magnesium 1.8 NT-Pro-B Natriuret Pep 4340 H
[2019-11-18] MEDS ORDERED: POTASSIUM CHLORIDE 20 MEQ TABCR PO ONE (10:18)
--- NOTE | 2019-11-18 18:04 | Hospitalist Progress Note ---
Date of Service November 18, 2019 Assessment & Plan (1) PAT (paroxysmal atrial tachycardia): PAT (paroxysmal atrial tachycardia): Patient was symptomatic with arrythmia at home Had dizzy spell lightheadedness, presented with syncope or near syncope (had multiple similar episodes at home) EKG /Tele shows : paroxysmal atrial tachycardia/multifocal atrial tachycardia - appreciate input from cardiology started on Amiodarone on Toprol XL 50 mg daily Continue to monitor electrolytes, keep potassium above 4, magnesium level of 2 to prevent arrhythmia ECHO : normal LV function , EF 40-45 % monitor in tele Syncope: possible due to cardiac arrythmia CT head: No acute change Patient did not had any further episode of syncope, dizzy spells since admission UTI: follow urine culture -no grwoth dc IV rocephin CHF with sytolic dysfunction: EF 40-45%, patient received IV fluids secondary to acute renal failure developed vol overload - PO lasix resumed vol status stable started on low dose ACEI Cerebral amyloid angiopathy: hx of Intracranial hemorrhage antiplatelet /anticoagulation contraindicated History of CVA ( intracerebral hemorrhage-due to cerebral amyloid angiopathy) -not on antiplatelets due to bleeding risk Hypertension: On beta-zari, resumed Lasix added ACEI KERA ON CKD STAGE 3 : Resolved, Creatinine 0.7 at baseline, IV fluid discontinued avoid NSAID /contrast studies Chronic hypoxic respiratory failure : on home 02 no wheeze or cough Ordered for PRN nebs (2) Syncope: (3) History of partial gastrectomy: Morbidly obese, BMI 41.2 wt reduction /heart healthy diet /exercise recommended FULL CODE DVT PROPHYLAXIS : SCD AND TEDS DISPOSITION : lives at home with daughter PT/OT eval requested will be discharged home with family when medically stable Admission and Anticipated Discharge Date Admission Date: November 16, 2019 Subjective pt is seen at bedside daughter present denies of any chest pain or SOB no wheeze or cough on 3 L 02 via nasal canula -on home 02 no complain of dizzy spell or palpitation Physical Exam Constitutional: WD/WN, vitals as above Eyes: PERRL, conjunctivae normal, anicteric sclerae ENMT: external ear and nose normal, oropharynx normal Neck: normal visual inspection Respiratory: normal respiratory effort, lungs clear to auscultation normal respiratory effort; no respiratory distress Auscultation: no crackles, no rales and no wheezes Cardiovascular: RRR, no murmur, no edema Rate/Rhythm: regular rate and regular rhythm Gastrointestinal (Abdomen): Percussion/Palpation: abdomen soft; abdomen nontender Musculoskeletal: no cyanosis or clubbing, extremities motor strength 5/5 Skin: no rashes, warm and dry Neurologic: PERRL, EOMI, accommodation nl, no face palsy, no dysarthria Psychiatric: A+Ox3, euthymic affect Results & Data Results & Data ([facility]) Vital Signs (Past 12 Hours) Vital Signs Temp Pulse Resp BP Pulse Ox 11/18/19 15:01 37.4 C 66 19 123/75 92 11/18/19 12:02 37.5 C 88 20 113/78 93 11/18/19 11:27 85 20 94 11/18/19 08:00 74 20 94 11/18/19 07:48 37.0 C 79 24 142/91 H 91
[2019-11-18] MEDS: lisinopriL 5 MG TAB PO SCH (21:21)
[2019-11-18] MEDS: METOPROLOL SUCC 25MG EXT REL TAB PO SCH (21:21)
[2019-11-19] MEDS: NITROGLYCERIN 2% OINTMENT 30GM TUBE EXT SCH ×3 (00:07→11:59)
[2019-11-19 06:34] LABS: BUN Creatinine Ratio 11.6 (10-20); Calcium 8.2 mg/dl (8.5-10.1); Creatinine Clr Calc Pharmacy 50.8 ml/min; Est GFR (African American) 70.9; Est GFR (Non-African American) 61.2; Magnesium 1.8 mg/dl (1.8-2.4); Potassium 4.5 mmol/L (3.5-5.1)
[2019-11-19] MEDS: ALBUTEROL HFA 8 GM INHALER INH SCH ×4 (07:10→19:42)
[2019-11-19] MEDS ORDERED: ALENDRONATE SODIUM 70 MG TAB PO SCH (09:00)
[2019-11-19] MEDS: lisinopriL 5 MG TAB PO SCH ×2 (09:06→20:48)
[2019-11-19] MEDS: SERTRALINE HCL 50 MG TABLET PO SCH ×2 (09:07→09:09)
[2019-11-19] MEDS: AMIODARONE 200 MG TAB PO SCH ×4 (09:07→20:48)
[2019-11-19] MEDS: CHOLECALCIFEROL 1,000 UNITS 25 MCG TAB PO SCH (09:08)
[2019-11-19] MEDS: FUROSEMIDE 40 MG TAB PO SCH (09:08)
[2019-11-19] MEDS: METOPROLOL SUCC 50MG EXT REL TAB PO SCH (09:09)
[2019-11-19] MEDS: PANTOprazole 40 MG TAB PO SCH (09:10)
[2019-11-19] MEDS: CALCIUM 600MG + VIT D 400 IU TAB PO SCH (09:10)
--- NOTE | 2019-11-19 11:03 | Cardiology Progress Note ---
Date of Service November 19, 2019 Assessment & Plan (1) PAT (paroxysmal atrial tachycardia): Patient presented with syncope or near syncope possibly in association with an acute febrile illness. EKGs and rhythm strips reflect paroxysmal atrial tachycardia/multifocal atrial tachycardia rather than atrial fibrillation. Rates are rapid at times and patient poorly tolerant of arrhythmia historically. Patient would be at elevated risk for mechanical intervention/ablation Plan: Patient responding to medical therapies with rhythms coming under substantial improvement. Would continue amiodarone and metoprolol. Will likely reduce amiodarone dosing in a.m. Suspect a component of hypoventilation driving complaints. Blood pressure better controlled on current regimen will discontinue topical nitrates, continue lisinopril (2) Syncope: Patient personally unaware of complete syncope, suspect arrhythmia induced with treatments plan as above (3) Cerebral amyloid angiopathy: Intracranial hemorrhage in the setting of diagnosis of cerebral amyloid angiopathy absolute contraindication to anticoagulation and antiplatelet therapies (4) CVA (cerebrovascular accident due to intracerebral hemorrhage): (5) Hypertension: Subjective Patient seen and examined chart and telemetry reviewed. Patient sleeping soundly at time of examination. No issues overnight. Arrhythmias under substantially better control. Blood pressures better controlled Physical Exam Constitutional: WD/WN, vitals as above + obese Eyes: PERRL, conjunctivae normal, anicteric sclerae ENMT: external ear and nose normal, oropharynx normal Neck: trachea midline, no thyromegaly Respiratory: normal respiratory effort, lungs clear to auscultation Auscultation: + wheezes (Diffuse, increased with cough) Cardiovascular: Rate/Rhythm: regular rate and regular rhythm Heart Sounds: normal S1, normal S2 and + murmur (Grade 1/6 systolic, no diastolic); no gallop Palpation: normal PMI Vessels: normal carotid upstroke and radial pulses present; no JVD and no carotid bruit Extremities: no edema Gastrointestinal (Abdomen): normal bowel sounds, soft, nontender, no hepatosplenomegaly Percussion/Palpation: + hernia (Large ventral but soft and reducible) Musculoskeletal: no cyanosis or clubbing, extremities motor strength 5/5 Skin: no rashes, warm and dry Neurologic: PERRL, EOMI, accommodation nl, no face palsy, no dysarthria Psychiatric: A+Ox3, euthymic affect Results & Data Vital Signs (Past 12 Hours) Vital Signs Temp Pulse Resp BP Pulse Ox 11/19/19 08:18 36.5 C 79 19 104/71 92 11/19/19 07:11 82 20 94 11/19/19 04:00 37.3 C 74 20 116/60 94 11/18/19 23:34 37.3 C 71 22 130/80 97 Laboratory Results Laboratory Results - last 24 hr 11/19/19 05:29 Sodium 143 Potassium 4.5 D Chloride 105 Carbon Dioxide 35 H Anion Gap 3.0 BUN 10 Creatinine 0.87 Est Cr Clr Drug Dosing 50.8 Est GFR ( Amer) 70.9 Est GFR (Non-Af Amer) 61.2 BUN/Creatinine Ratio 11.6 Glucose 97 Calcium 8.2 L Magnesium 1.8
[2019-11-19] MEDS ORDERED: MAGNESIUM SULFATE / D5W 1 GM/100 ML BAG IV ONE (16:15)
--- NOTE | 2019-11-19 16:24 | Hospitalist Progress Note ---
Date of Service November 19, 2019 Assessment & Plan (1) PAT (paroxysmal atrial tachycardia): PAT (paroxysmal atrial tachycardia): -Patient presented with syncope or near syncope possibly in association with an acute febrile illness. EKGs and rhythm strips reflect paroxysmal atrial tachycardia/multifocal atrial tachycardia rather than atrial fibrillation. Rates are rapid at times and patient poorly tolerant of arrhythmia historically. Patient would be at elevated risk for mechanical intervention/ablation -11/19/2019: Dr. Gabe Davies, am covering for Dr. Yin who is patient's usual hospitalist doctor. Patient on labs noted to have mildly low serum magnesium of 1.8 and IV magnesium to be given. Patient is sinus rhythm on telemetry. She is on nasal cannula oxygen. Patient was able to follow directions for physical examination and we discussed health and symptoms with [place] speaking career coach services on the iPAD device. Patient denies feeling dizziness or lightheadedness today. no chest pain. no palpitations. no abdomen pain. no vomiting. she does not feel shortness of breath -cardiology Dr. Salazar following the patient. current cardiac medications: amiodarone 200 mg QID, metoprolol succinate 50 mg daily, 25 mg every PM, lisinopril 5 mg BID, furosemide 40 mg daily Syncope: -suspect arrhythmia induced with treatments plan as above -admission CT head: No acute change mild hypomagnesemia -serum magnesium 1.8 on 11/19/2019, given IV magnesium CHF with sytolic dysfunction: -EF 40-45% Cerebral amyloid angiopathy: Intracranial hemorrhage in the setting of diagnosis of cerebral amyloid angiopathy absolute contraindication to anticoagulation and antiplatelet therapies History of CVA ( intracerebral hemorrhage-due to cerebral amyloid angiopathy) -not on antiplatelets due to bleeding risk Hypertension: On beta-zari, resumed Lasix added ACEI Acute Kidney Injury on ON CKD STAGE 3 : -acute kidney injury resolved -urinary tract infection has been ruled out on this admission with negative urine cultures avoid NSAID /contrast studies Chronic hypoxic respiratory failure : on home 02 no wheeze or cough Ordered for PRN nebs (2) Syncope: (3) History of partial gastrectomy: Morbidly obese, BMI 41.2 wt reduction /heart healthy diet /exercise recommended FULL CODE DVT PROPHYLAXIS : SCD AND TEDS DISPOSITION : lives at home with daughter PT/OT evaluations Admission and Anticipated Discharge Date Admission Date: November 16, [address] Gabe Davies, am covering for Dr. Yin who is patient's usual hospitalist doctor. Patient on labs noted to have mildly low serum magnesium of 1.8 and IV magnesium to be given. Patient is sinus rhythm on telemetry. She is on nasal cannula oxygen. Patient was able to follow directions for physical examination and we discussed health and symptoms with [place] speaking career coach services on the iPAD device. Patient denies feeling dizziness or lightheadedness today. no chest pain. no palpitations. no abdomen pain. no vomiting. she does not feel shortness of breath Review of Systems Review of Systems: All systems reviewed & are unremarkable except as noted in Subjective Physical Exam Constitutional: comfortable Eyes: PERRL, conjunctivae normal, anicteric sclerae EOM intact bilaterally ENMT: external ear and nose normal, oropharynx normal Neck: trachea midline, no thyromegaly Respiratory: normal respiratory effort (wears nasal cannula) Cardiovascular: Rate/Rhythm: regular rate and regular rhythm Gastrointestinal (Abdomen): Percussion/Palpation: abdomen soft (has hernia) Musculoskeletal: Head/Neck/Chest: normocephalic and head atraumatic Neurologic: PERRL, EOMI, accommodation nl, no face palsy, no dysarthria Psychiatric: Orientation: alert and cooperative Results & Data Results & Data ([facility]) Vital Signs (Past 12 Hours) Vital Signs Temp Pulse Resp BP Pulse Ox 11/19/19 15:31 37.1 C 82 17 134/84 97 11/19/19 12:45 36.7 C 11/19/19 11:07 75 140/92 11/19/19 08:18 36.5 C 79 19 104/71 92 11/19/19 07:11 82 20 94
[2019-11-19] MEDS: METOPROLOL SUCC 25MG EXT REL TAB PO SCH (20:48)
[2019-11-20 06:37] LABS: BUN Creatinine Ratio 9.8 (10-20); Calcium 8.9 mg/dl (8.5-10.1); Creatinine Clr Calc Pharmacy 40.2 ml/min; Est GFR (African American) 53.4; Est GFR (Non-African American) 46.1; Magnesium 2.1 mg/dl (1.8-2.4); Potassium 4.3 mmol/L (3.5-5.1)
[2019-11-20] MEDS: ALBUTEROL HFA 8 GM INHALER INH SCH ×5 (07:13→19:16)
--- NOTE | 2019-11-20 08:53 | Hospitalist Progress Note ---
Date of Service November 20, 2019 Assessment & Plan (1) Agitation: Had brief episode of agitation/confusion earlier this morning Possible due to hypoxia? Daughter. mentioned she noticed similar episode at home, when patient's nasal cannula may fall off overnight, Patient refused vital check this morning due to agitation After she calmed down, blood pressure noted to be moderately elevated possible secondary to agitation Heart rate in sinus at 90s, SPO2 96% with supplemental oxygen Possible metabolic encephalopathy for brief episode of hypoxemia Order for continuous pulse oximetry, During my interview, patient is back to her mental status, oriented to person surroundings, following commands (2) PAT (paroxysmal atrial tachycardia): PAT (paroxysmal atrial tachycardia): -Patient presented with syncope or near syncope possibly in association with an acute febrile illness. -cardiology Dr. 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) -not on antiplatelets due to bleeding risk Hypertension: On beta-zari, Lasix added ACEI Acute Kidney Injury on ON CKD STAGE 3 : -acute kidney injury resolved -urinary tract infection has been ruled out on this admission with negative urine cultures avoid NSAID /contrast studies Chronic hypoxic respiratory failure : on home 02 On 3 L by nasal cannula no wheeze or cough Continues pulse oximetry ordered, as patient cannot tolerate hypoxic episode- leading to agitation this morning, possible cause of PAT/syncope as well (3) Syncope: No further episodes since admission, possible combination of atrial tachycardia induced by hypoxemia (4) History of partial gastrectomy: Morbidly obese, BMI 41.2 wt reduction /heart healthy diet /exercise recommended FULL CODE DVT PROPHYLAXIS : SCD AND TEDS DISPOSITION : lives at home with daughter Daughter updated at bedside, Plan to discharge home With daughter Admission and Anticipated Discharge Date Admission Date: November 16, 2019 Subjective Notified by nursing, patient was found sitting on chair, slumped over, minimally responsive, Woke up in few minutes, became very agitated, and combative Patient was helped to get in bed, 1:1 sitter required for safety -as patient kept on climbing out of bed Very difficult to communicate as patient was very angry, yelling and [place] Daughter was contacted, arrived at bedside Patient was evaluated by myself, Heart rhythm remains in sinus in 90s, brief episode of atrial tachycardia around 7:00 am highest rate was 110 Patient complains that nursing staff been very rude to her After patient daughter arrived, and explained to her that everybody was worried about her safety, patient calmed down, Pulse oximetry shows 96% SPO2 on 5 L nasal cannula, Patient is found to be oriented to place and surrounding, able to understand instructions/command, mental status appears to be to baseline Review of Systems Review of Systems: All systems reviewed & are unremarkable except as noted in HPI & below Brief episode of agitation this morning, resolved Physical Exam Constitutional: WD/WN, vitals as above Was agitated earlier this morning, at present now, cooperative, Pleasant, mental status back to baseline Eyes: PERRL, conjunctivae normal, anicteric sclerae ENMT: external ear and nose normal, oropharynx normal Neck: normal visual inspection Respiratory: normal respiratory effort, lungs clear to auscultation normal respiratory effort; no respiratory distress Auscultation: no crackles, no rales and no wheezes Cardiovascular: RRR, no murmur, no edema Rate/Rhythm: regular rate and regular rhythm Gastrointestinal (Abdomen): Percussion/Palpation: abdomen soft; abdomen nontender Musculoskeletal: no cyanosis or clubbing, extremities motor strength 5/5 Skin: no rashes, warm and dry Neurologic: PERRL, EOMI, accommodation nl, no face palsy, no dysarthria Psychiatric: A+Ox3, euthymic affect Results & Data Results & Data ([facility]) Vital Signs (Past 12 Hours) Vital Signs Temp Pulse Pulse Resp BP Pulse Ox 11/20/19 07:16 73 15 93 11/20/19 04:03 37 C 82 20 122/77 91 11/19/19 23:56 37.1 C 74 20 113/63 96
[2019-11-20] MEDS: CALCIUM 600MG + VIT D 400 IU TAB PO SCH (08:54)
[2019-11-20] MEDS: CHOLECALCIFEROL 1,000 UNITS 25 MCG TAB PO SCH (08:55)
[2019-11-20] MEDS: SERTRALINE HCL 50 MG TABLET PO SCH ×2 (08:55→08:59)
[2019-11-20] MEDS: lisinopriL 5 MG TAB PO SCH ×2 (08:56→20:54)
[2019-11-20] MEDS: FUROSEMIDE 40 MG TAB PO SCH (08:57)
[2019-11-20] MEDS: PANTOprazole 40 MG TAB PO SCH (08:57)
[2019-11-20] MEDS: AMIODARONE 200 MG TAB PO SCH ×3 (08:57→20:53)
[2019-11-20] MEDS: ACETAMINOPHEN 325 MG TAB PO PRN ×2 (09:58→14:02)
[2019-11-20] MEDS: METOPROLOL SUCC 50MG EXT REL TAB PO SCH ×2 (09:59→20:56)
--- NOTE | 2019-11-20 10:03 | Cardiology Progress Note ---
Date of Service November 20, 2019 Assessment & Plan (1) PAT (paroxysmal atrial tachycardia): Patient presented with syncope or near syncope possibly in association with an acute febrile illness. EKGs and rhythm strips reflect paroxysmal atrial tachycardia/multifocal atrial tachycardia rather than atrial fibrillation. Rates are rapid at times and patient poorly tolerant of arrhythmia historically. Patient would be at elevated risk for mechanical intervention/ablation Plan: Patient responding to medical therapies with rhythms coming under substantial improvement. Would continue amiodarone and metoprolol. Will likely reduce amiodarone dosing in a.m. Suspect a component of hypoventilation driving complaints. Blood pressure better controlled on current regimen will discontinue topical nitrates, continue lisinopril We will plan on amiodarone 200 mg twice per day, Toprol-XL 50 mg twice per day. Continue oxygen Follow-up cardiology next 1 to 2 weeks time (2) Syncope: Patient personally unaware of complete syncope, suspect arrhythmia induced with treatments plan as above (3) Cerebral amyloid angiopathy: Intracranial hemorrhage in the setting of diagnosis of cerebral amyloid angiopathy absolute contraindication to anticoagulation and antiplatelet therapies (4) CVA (cerebrovascular accident due to intracerebral hemorrhage): (5) Hypertension: Subjective Patient seen and examined, chart, medications, telemetry reviewed. Patient's daughter present and helpful for translation. Patient agitated this morning during a period of hypoxia. Now oriented with mild confusion. No cardiac complaints. Arrhythmias are substantially improved on current medical regimen. Physical Exam Constitutional: WD/WN, vitals as above + obese Eyes: PERRL, conjunctivae normal, anicteric sclerae ENMT: external ear and nose normal, oropharynx normal Neck: trachea midline, no thyromegaly Respiratory: normal respiratory effort, lungs clear to auscultation Auscultation: + wheezes (Minimal) Cardiovascular: Rate/Rhythm: regular rate and regular rhythm Heart Sounds: normal S1, normal S2 and + murmur (Grade 1/6 systolic, no diastolic); no gallop Palpation: normal PMI Vessels: normal carotid upstroke and radial pulses present; no JVD and no carotid bruit Extremities: no edema Gastrointestinal (Abdomen): normal bowel sounds, soft, nontender, no hepatosplenomegaly Percussion/Palpation: + hernia (Large ventral but soft and reducible) Musculoskeletal: no cyanosis or clubbing, extremities motor strength 5/5 Skin: no rashes, warm and dry Neurologic: PERRL, EOMI, accommodation nl, no face palsy, no dysarthria Psychiatric: A+Ox3, euthymic affect Results & Data Vital Signs (Past 12 Hours) Vital Signs Temp Pulse Pulse Resp BP Pulse Ox 11/20/19 08:19 37.1 C 81 26 H 157/103 H 93 11/20/19 07:16 73 15 93 11/20/19 04:03 37 C 82 20 122/77 91 11/19/19 23:56 37.1 C 74 20 113/63 96 Laboratory Results Laboratory Results - last 24 hr 11/20/19 05:47 Sodium 139 Potassium 4.3 Chloride 98 Carbon Dioxide 39 H Anion Gap 3.0 BUN 11 Creatinine 1.10 Est Cr Clr Drug Dosing 40.2 Est GFR ( Amer) 53.4 Est GFR (Non-Af Amer) 46.1 BUN/Creatinine Ratio 9.8 L Glucose 107 H Calcium 8.9 Magnesium 2.1
--- NOTE | 2019-11-20 14:11 | Electrocardiogram Report ---
Test Reason : Blood Pressure : / mmHG Vent. Rate : 087 BPM Atrial Rate : 087 BPM P-R Int : 176 ms QRS Dur : 084 ms QT Int : 406 ms P-R-T Axes : 013 -12 015 degrees QTc Int : 488 ms Normal sinus rhythm Nonspecific T wave abnormality Abnormal ECG When compared with ECG of 17-NOV-2019 06:48, Aberrant conduction is no longer Present Nonspecific T wave abnormality has replaced inverted T waves in Inferior leads Nonspecific T wave abnormality now evident in Anterolateral leads Confirmed by Reji Paulson ([id number]) on 11/20/2019 2:11:03 PM Referred By: REFERRED SELF Confirmed By:Sage Paulson
[2019-11-20 16:05] LABS: Allen Test POS (Pos); Base Excess ABG 11.2 mEq/L (-9-1.8); HCO3 ABG 38 mmol/L (19-24); Oxygen Saturation ABG 95.7 % (90-95); PCO2 ABG 60 mmHg (35-46); PO2 ABG 80 mmHg (80-95); pH ABG 7.42 (7.35-7.45)
[2019-11-20] MEDS ORDERED: KETOROLAC TROMETHAMINE 15 MG/ML VIAL IV ONE (16:22)
--- NOTE | 2019-11-20 16:29 | Hospitalist Progress Note ---
Date of Service November 20, 2019 Assessment & Plan Admission and Anticipated Discharge Date Admission Date: November 16, 2019 Subjective ABG results noted: pH 7.42 PCO2 60 PO2 80 Bicarb 38 SPO2 95% with 5 L oxygen by nasal cannula Patient is chronically retaining CO2,-is causing her lethargy, confusion Need to titrate O2 to keep SPO2 between 88-92% to prevent CO2 retention Complaints of left groin pain, started this morning, feels the pain only when sitting to standing, no pain on walking Possible muscle spasm, ordered a dose of Toradol, as needed heating pad Avoid narcotics pain medication, as it may cause respiratory depression and more CO2 retention Noted to be significantly weak, High fall risk, Patient will be observed overnight in hospital, needs more PT evaluation in a.m. for ambulatory dysfunction/gait disturbance Daughter updated at bedside Adina Yin MD Results & Data Results & Data ([facility]) Vital Signs (Past 12 Hours) Vital Signs Temp Pulse Pulse Resp BP Pulse Ox Pulse Ox 11/20/19 15:15 73 18 96 11/20/19 10:42 36.9 C 72 20 159/84 H 94 11/20/19 08:48 98 11/20/19 08:19 37.1 C 81 26 H 157/103 H 93 11/20/19 07:16 73 15 93
[2019-11-20] MEDS ORDERED: KETOROLAC TROMETHAMINE 10 MG TABLET PO STA (17:17)
[2019-11-21] MEDS: ALBUTEROL HFA 8 GM INHALER INH SCH ×4 (07:17→19:42)
[2019-11-21] MEDS: CHOLECALCIFEROL 1,000 UNITS 25 MCG TAB PO SCH (09:02)
[2019-11-21] MEDS: lisinopriL 5 MG TAB PO SCH (09:02)
[2019-11-21] MEDS: METOPROLOL SUCC 50MG EXT REL TAB PO SCH ×2 (09:02→21:45)
[2019-11-21] MEDS: AMIODARONE 200 MG TAB PO SCH ×2 (09:03→21:45)
[2019-11-21] MEDS: PANTOprazole 40 MG TAB PO SCH (09:03)
[2019-11-21] MEDS: SERTRALINE HCL 50 MG TABLET PO SCH ×2 (09:03→09:05)
[2019-11-21] MEDS: CALCIUM 600MG + VIT D 400 IU TAB PO SCH (09:04)
[2019-11-21] MEDS: FUROSEMIDE 40 MG TAB PO SCH (09:04)
[2019-11-21] MEDS ORDERED: SODIUM CHLORIDE 0.9% 1000ML 250 ML IV ONE (10:36)
--- NOTE | 2019-11-21 12:06 | Hospitalist Progress Note ---
Date of Service November 21, 2019 Assessment & Plan (1) Acute hypotension: Acute hypotension with BP 89/57 noted this morning while standing up for physical therapy Patient was symptomatic with dizzy spell and lightheadedness No syncope Orthostatic change noted Lying down: SBP 130,/sitting up BP dropped to 89 Vitals was not checked standing as patient was very symptomatic with dizzy spell Ordered to hold Lasix and lisinopril Given normal saline to 250 mL bolus Continue to monitor in telemetry Cardiology updated Dry nonproductive cough: Patient reports of chronic cough for a long time Occasional wheezing noted during hospital stay This morning patient continued to have coughing spell, leading to hypoxia No sputum production Order to DC lisinopril-concern for possible side effect/added to allergy list Order for cough suppressant No evidence of infection, no indication for antibiotic (2) PAT (paroxysmal atrial tachycardia): PAT (paroxysmal atrial tachycardia): -Patient presented with syncope episode, which has been happening on and off multiple times at home as well Found to have paroxysmal atrial tachyarrhythmia, And is very symptomatic during those episodes -cardiology Dr. Salazar following patient input Started on amiodarone /metoprolol succinate 50 mg p.o. twice daily Amiodarone dose will be reduced further per cardiology Telemetry shows better rate and rhythm control Syncope: -suspect arrhythmia induced /associated with hypoxic event as well Has resolved after rate control -admission CT head: No acute change CHF with sytolic dysfunction: -EF 40-45% Stable volume status, on Lasix ZULEYKA inhibitor was started this admission, discontinued as patient developed nonproductive cough Cerebral amyloid angiopathy: Intracranial hemorrhage in the setting of diagnosis of cerebral amyloid angiopathy absolute contraindication to anticoagulation and antiplatelet therapies History of CVA ( intracerebral hemorrhage-due to cerebral amyloid angiopathy) -not on antiplatelets due to bleeding risk Hypertension Developed hypotensive episode this morning Ordered to hold Lasix, DC lisinopril Toprol on holding parameters Acute Kidney Injury on ON CKD STAGE 3 : -acute kidney injury resolved -urinary tract infection has been ruled out on this admission with negative urine cultures avoid NSAID /contrast studies Chronic hypoxic respiratory failure : on home 02 On 3 L by nasal cannula Was seen last at [facility] pulmonology clinic in 2018 Hypoxic respiratory failure thought to be multifactorial: Chronic diastolic CHF, possible pulmonary hypertension, obesity hypoventilation symptoms next obstructive sleep apnea Patient unable to participate in pulmonary function test Unable to complete sleep study, intolerant of CPAP mask-Per daughter ABG shows chronic hypercarbia with PCO2 60/with a bicarb, normal pH Need to titrate oxygen supply to keep SPO2 between 88-92%-to prevent CO2 retention Will need follow-up with pulmonology clinic at [facility] (3) Syncope: No further episodes since admission, possible combination of atrial tachycardia induced by hypoxemia (4) History of partial gastrectomy: Morbidly obese, BMI 41.2 wt reduction /heart healthy diet /exercise recommended FULL CODE DVT PROPHYLAXIS : SCD AND TEDS DISPOSITION : lives at home with daughter Daughter updated Plan to discharge home With daughter when medically stable Patient and daughter refused home health visiting nurse , home PT service at home Admission and Anticipated Discharge Date Admission Date: November 16, 2019 Subjective Patient felt dizzy and lightheaded while trying to stand up this morning Noted to be hypotensive with SBP in 87 Repeat blood pressure lying down SBP 135 diastolic 70 Sitting up SBP dropped to 89 again Reports of having nonproductive cough(has chronic cough for years) worsening of symptoms this morning Denies of any shortness of breath, no palpitation, no chest pain Right groin pain has resolved Patient given 250 mL of IV NSS bolus No fever or chills No confusion or agitation, pleasant, oriented, 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 Nonproductive cough Cardiovascular: RRR, no murmur, no edema Rate/Rhythm: regular rate and regular rhythm Gastrointestinal (Abdomen): Percussion/Palpation: abdomen soft; abdomen nontender Musculoskeletal: no cyanosis or clubbing, extremities motor strength 5/5 Skin: no rashes, warm and dry Neurologic: PERRL, EOMI, accommodation nl, no face palsy, no dysarthria Psychiatric: A+Ox3, euthymic affect Results & Data Results & Data ([facility]) Vital Signs (Past 12 Hours) Vital Signs Temp Pulse Resp BP BP Pulse Ox 11/21/19 11:11 137/78 11/21/19 10:54 89 18 94 11/21/19 10:07 67 82/57 L 11/21/19 10:04 89/57 L 11/21/19 08:00 36.9 C 75 20 110/75 92 11/21/19 07:17 63 18 96 11/21/19 04:00 37.2 C 59 L 20 166/71 H 94
--- NOTE | 2019-11-21 12:47 | XRay Report ---
SINGLE VIEW CHEST CLINICAL HISTORY: Cough and dyspnea. FINDINGS: An AP, portable, upright chest radiograph is compared to study dated 11/18/2019 and correlat ed with chest CT dated 01/03/2019. The examination is degraded by portable technique and patient rotat ion. The heart is enlarged noting atherosclerotic calcification and uncoiling of the thoracic aorta. There is mild pulmonary vascular congestion. Foci of scarring/atelectasis are present throughout both lungs. No large pleural effusion or pneumothorax is seen. The skeletal structures are osteopenic. Th ere are healed right-sided rib fractures. IMPRESSION: 1. Cardiomegaly with mild pulmonary vascular congestion. 2. No airspace consolidation or large pleural effusion is identified. ACT 112: Negative or not required by law. Electronically signed by: Juni Lorenzo M.D. 11/21/2019 12:45 PM
--- NOTE | 2019-11-21 13:32 | Cardiology Progress Note ---
Date of Service November 21, 2019 Assessment & Plan (1) PAT (paroxysmal atrial tachycardia): Patient presented with syncope or near syncope possibly in association with an acute febrile illness. EKGs and rhythm strips reflect paroxysmal atrial tachycardia/multifocal atrial tachycardia rather than atrial fibrillation. Rates are rapid at times and patient poorly tolerant of arrhythmia historically. Patient would be at elevated risk for mechanical intervention/ablation Plan: Patient responding to medical therapies with rhythms coming under substantial improvement. Would continue amiodarone and metoprolol. Will likely reduce amiodarone dosing in a.m. Suspect a component of hypoventilation driving complaints. No arrhythmias today with good control rhythm tie over the past 24 to 36 hours. Mild orthostasis however on exam. Agree with holding furosemide and p.m. dose of lisinopril Continue current dosing of Toprol and amiodarone Treat underlying pulmonary disease, hypoventilation (2) Syncope: Patient personally unaware of complete syncope, suspect arrhythmia induced with treatments plan as above (3) Cerebral amyloid angiopathy: Intracranial hemorrhage in the setting of diagnosis of cerebral amyloid angiopathy absolute contraindication to anticoagulation and antiplatelet therapies (4) CVA (cerebrovascular accident due to intracerebral hemorrhage): (5) Hypertension: Subjective Patient seen and examined, chart, medications, telemetry reviewed. Patient weak and intermittently confused. Orthostasis noted on standing this morning. No further arrhythmias observed on telemetry Physical Exam Constitutional: WD/WN, vitals as above + obese Eyes: PERRL, conjunctivae normal, anicteric sclerae ENMT: external ear and nose normal, oropharynx normal Neck: trachea midline, no thyromegaly Respiratory: normal respiratory effort, lungs clear to auscultation Auscultation: + wheezes (Minimal) Cardiovascular: Rate/Rhythm: regular rate and regular rhythm Heart Sounds: normal S1, normal S2 and + murmur (Grade 1/6 systolic, no diastolic); no gallop Palpation: normal PMI Vessels: normal carotid upstroke and radial pulses present; no JVD and no carotid bruit Extremities: no edema Gastrointestinal (Abdomen): normal bowel sounds, soft, nontender, no hepatosplenomegaly Percussion/Palpation: + hernia (Large ventral but soft and reducible) Musculoskeletal: no cyanosis or clubbing, extremities motor strength 5/5 Skin: no rashes, warm and dry Neurologic: PERRL, EOMI, accommodation nl, no face palsy, no dysarthria Psychiatric: A+Ox3, euthymic affect Results & Data Vital Signs (Past 12 Hours) Vital Signs Temp Pulse Resp BP BP Pulse Ox 11/21/19 12:12 67 18 97 11/21/19 11:11 137/78 11/21/19 10:54 89 18 94 11/21/19 10:07 67 82/57 L 11/21/19 10:04 89/57 L 11/21/19 08:00 36.9 C 75 20 110/75 92 11/21/19 07:17 63 18 96 11/21/19 04:00 37.2 C 59 L 20 166/71 H 94 Laboratory Results Laboratory Results - last 24 hr 11/20/19 15:45 ABG pH 7.42 ABG pCO2 60 H ABG pO2 80 ABG HCO3 38 H ABG O2 Saturation 95.7 H ABG Base Excess 11.2 H Tom Test POS Barometric Pressure 729.2 Oxygen Given 5% O2
[2019-11-22] MEDS: ALBUTEROL HFA 8 GM INHALER INH SCH ×4 (07:25→19:18)
[2019-11-22] MEDS: CALCIUM 600MG + VIT D 400 IU TAB PO SCH (08:26)
[2019-11-22] MEDS: PANTOprazole 40 MG TAB PO SCH (08:27)
[2019-11-22] MEDS: CHOLECALCIFEROL 1,000 UNITS 25 MCG TAB PO SCH (08:27)
[2019-11-22] MEDS: AMIODARONE 200 MG TAB PO SCH ×2 (08:28→20:21)
[2019-11-22] MEDS: SERTRALINE HCL 50 MG TABLET PO SCH ×2 (08:29→08:30)
[2019-11-22] MEDS: METOPROLOL SUCC 50MG EXT REL TAB PO SCH ×2 (08:29→21:30)
[2019-11-22 09:06] LABS: BUN Creatinine Ratio 10.3 (10-20); Calcium 8.7 mg/dl (8.5-10.1); Creatinine Clr Calc Pharmacy 29.9 ml/min; Est GFR (African American) 37.9; Est GFR (Non-African American) 32.7; Potassium 4.1 mmol/L (3.5-5.1)
--- NOTE | 2019-11-22 16:54 | Hospitalist Progress Note ---
Date of Service November 22, 2019 Assessment & Plan (1) Acute hypotension: Symptomatic orthostatic Hypotension with dizziness and lightheadedness BP has been stable Lisinopril on hold, will consider to d/c on discharge (2) PAT (paroxysmal atrial tachycardia): Present on admission with syncopal episodes Started on Amiodarone 200mg BID ans Metoprolol succ 50mg daily Rate stable Cardiology on board Case discussed with cardiology and recommended to continue amiodarone and metoprolol at the current dose Syncope: Possible related to arrhythmia induced vs orthostatic hypotension CT head showed no acute intracranial finding Resolved Chronic Dry cough Patient reports of chronic cough for a long time Possible related to Lisinopril side effect CXR showed cardiomegaly with mild pulmonary vascular congestion. No airspace consolidation or large pleural effusion is identified. Lisinopril on hold and plan to D/C on discharge CHF with sytolic dysfunction: Echo showed moderate concentric left ventricular hypertrophy. Mild global hypokinesis of the left ventricle. Ejection fraction 40 to 45% No sign of volume overload Continue PO lasix ZULEYKA inhibitor was started this admission, discontinued as patient developed nonproductive cough Cerebral amyloid angiopathy: Intracranial hemorrhage in the setting of diagnosis of cerebral amyloid angiopathy absolute contraindication to anticoagulation and antiplatelet therapies History of CVA ( intracerebral hemorrhage-due to cerebral amyloid angiopathy) Not on antiplatelets due to bleeding risk Hypertension BP stable Will resume lasix in am if creatinine stable Continue Toprol Acute Kidney Injury on ON CKD STAGE 3 : Creatinine 1.45 today Will hold Lasix Avoid NSAID /contrast studies Will check BMP in am Chronic hypoxic respiratory failure : on home 02 On 3 L by nasal cannula Hypoxic respiratory failure thought to be multifactorial: Chronic diastolic CHF, possible pulmonary hypertension, obesity hypoventilation symptoms next obstructive sleep apnea Patient unable to participate in pulmonary function test Unable to complete sleep study, intolerant of CPAP mask-Per daughter ABG shows chronic hypercarbia with PCO2 60/with a bicarb, normal pH Need to titrate oxygen supply to keep SPO2 between 88-92%-to prevent CO2 retention Will need follow-up with pulmonology clinic at [facility] (3) History of partial gastrectomy: Morbidly obese, BMI 41.2 wt reduction /heart healthy diet /exercise recommended FULL CODE DVT PROPHYLAXIS : SCD AND TEDS DISPOSITION : PT recommended in patient Rehab Plan to discharge home With daughter when tomorrow Patient and daughter refused home health visiting nurse/ Rehab Admission and Anticipated Discharge Date Admission Date: November 16, 2019 Subjective Pt was seen and examined Sitting in bed with no distress Spoke to daughter and provided with updates I informed daughter that PT recommended inpatient rehab Daughter said that she preferred to take her room due to the COVID to reduce the exposure risks Denies any chest pain, palpitation, dizziness and SOB Physical Exam Physical Exam: General- No acute distress Head- atraumatic Eyes- PERRL, EOMI, ENT- oropharynx clear Neck- supple, no JVD Lungs- clear to auscultation Heart- regular rhythm; no murmur Abdomen- normal bowel sounds, soft, nontender Extremities- no calf tenderness Neuro- alert, oriented x 3; PERRL, EOMI; no facial palsy; no dysarthria Skin- warm & dry Results & Data Results & Data ([facility]) Vital Signs (Past 12 Hours) Vital Signs Temp Pulse Pulse Resp BP Pulse Ox 11/22/19 16:18 36.5 C 74 18 139/66 90 11/22/19 14:34 69 18 91 11/22/19 11:55 37.1 C 71 21 119/81 100 11/22/19 11:09 74 16 94 11/22/19 08:00 68 11/22/19 07:36 36.5 C 56 L 16 129/86 93 11/22/19 07:28 58 L 16 95
[2019-11-23] MEDS: ALBUTEROL HFA 8 GM INHALER INH SCH ×3 (07:24→15:29)
[2019-11-23] MEDS: AMIODARONE 200 MG TAB PO SCH (08:13)
[2019-11-23] MEDS: SERTRALINE HCL 50 MG TABLET PO SCH ×2 (08:13→08:16)
[2019-11-23] MEDS: CALCIUM 600MG + VIT D 400 IU TAB PO SCH (08:14)
[2019-11-23] MEDS: CHOLECALCIFEROL 1,000 UNITS 25 MCG TAB PO SCH (08:14)
[2019-11-23] MEDS: PANTOprazole 40 MG TAB PO SCH (08:14)
[2019-11-23] MEDS: METOPROLOL SUCC 50MG EXT REL TAB PO SCH (08:16)
[2019-11-23 09:15] LABS: BUN Creatinine Ratio 11.3 (10-20); Calcium 8.9 mg/dl (8.5-10.1); Creatinine Clr Calc Pharmacy 30.3 ml/min; Est GFR (African American) 38.6; Est GFR (Non-African American) 33.3; Potassium 4.2 mmol/L (3.5-5.1)
--- NOTE | 2019-11-23 15:43 | Hospitalist Progress Note ---
Date of Service November 23, 2019 Assessment & Plan (1) PAT (paroxysmal atrial tachycardia): Present on admission with syncopal episodes Started on Amiodarone 200mg BID ans Metoprolol succ 50mg daily Rate stable Cardiology on board Case discussed with cardiology and recommended to continue amiodarone and metoprolol at the current dose Ok from cardiology standpoint to discharge home Follow up with cardiology in 2 to 4 weeks Syncope: Possible related to arrhythmia induced vs orthostatic hypotension CT head showed no acute intracranial finding Resolved Chronic Dry cough Patient reports of chronic cough for a long time Possible related to Lisinopril side effect CXR showed cardiomegaly with mild pulmonary vascular congestion. No airspace consolidation or large pleural effusion is identified. Lisinopril discontinued CHF with sytolic dysfunction: Echo showed moderate concentric left ventricular hypertrophy. Mild global hypokinesis of the left ventricle. Ejection fraction 40 to 45% No sign of volume overload ZULEYKA inhibitor was started this admission, discontinued as patient developed nonproductive cough Due to Hypotensive episodes, Cardiology recommended to change lasix 3x weekly, then monitor for weight gain and Symptoms of heart failure Cerebral amyloid angiopathy: Intracranial hemorrhage in the setting of diagnosis of cerebral amyloid angiopathy absolute contraindication to anticoagulation and antiplatelet therapies History of CVA ( intracerebral hemorrhage-due to cerebral amyloid angiopathy) Not on antiplatelets due to bleeding risk Hypertension BP stable Will resume lasix in am if creatinine stable Continue Toprol Acute Kidney Injury on ON CKD STAGE 3 : Creatinine 1.4 today Lasix has been on hold Will do lasix 3x weekly Avoid NSAID /contrast studies Check BMP in 1 week Chronic hypoxic respiratory failure : on home 02 On 3 L by nasal cannula Hypoxic respiratory failure thought to be multifactorial: Chronic diastolic CHF, possible pulmonary hypertension, obesity hypoventilation symptoms next obstructive sleep apnea Patient unable to participate in pulmonary function test Unable to complete sleep study, intolerant of CPAP mask-Per daughter ABG shows chronic hypercarbia with PCO2 60/with a bicarb, normal pH Need to titrate oxygen supply to keep SPO2 between 88-92%-to prevent CO2 retention Will need follow-up with pulmonology clinic at [facility] (2) Acute hypotension: Symptomatic orthostatic Hypotension with dizziness and lightheadedness BP has been stable (3) History of partial gastrectomy: Morbidly obese, BMI 41.2 wt reduction /heart healthy diet /exercise recommended FULL CODE DVT PROPHYLAXIS : SCD AND TEDS DISPOSITION : PT recommended in patient Rehab Plan to discharge home With daughter when tomorrow Patient and daughter refused home health visiting nurse/ Rehab de to COVID exposure at [facility] facility Admission and Anticipated Discharge Date Admission Date: November 16, 2019 Subjective Pt was seen and examined Lying in bed with no distress Ipad did not work to help to find a Haitian speaker to interpret I spoke to the daughter over the phone today and provided with update Pt looks very comfortable in bed Denies any chest pain Physical Exam Physical Exam: General- No acute distress Head- atraumatic Eyes- PERRL, EOMI, ENT- oropharynx clear Neck- supple, no JVD Lungs- clear to auscultation Heart- regular rhythm; no murmur Abdomen- normal bowel sounds, soft, nontender Extremities- no calf tenderness Neuro- alert, oriented x 3; PERRL, EOMI; no facial palsy; no dysarthria Skin- warm & dry Results & Data Results & Data ([facility]) Vital Signs (Past 12 Hours) Vital Signs Temp Pulse Pulse Pulse Resp BP BP 11/23/19 15:31 69 18 11/23/19 14:53 64 11/23/19 13:54 37.0 C 66 69 21 125/82 128/80 11/23/19 11:29 37.0 C 66 21 125/82 11/23/19 08:01 65 11/23/19 07:54 37.0 C 69 15 128/70 11/23/19 07:23 11/23/19 04:30 36.7 C 63 20 128/80 Pulse Ox 11/23/19 15:31 94 11/23/19 14:53 11/23/19 13:54 93 11/23/19 11:29 93 11/23/19 08:01 11/23/19 07:54 96 11/23/19 07:23 92 11/23/19 04:30 97
--- NOTE | 2019-11-25 10:09 | Discharge Summary ---
Date of Service November 23, 2019 Admission HPI Per Admitting Provider CHIEF COMPLAINT: Near syncope and fever. HISTORY OF PRESENT ILLNESS: This is an 84-year-old female. She is a British-speaking lady who lives with her daughter. Daughter is at bedside who gives the history. Was brought in because of fever and near syncope. The patient's past medical history is significant for history of CVA, history of cerebral bleed in 2016 as per daughter, history of cerebral amyloid angiopathy, chronic diastolic CHF, venous insufficiency, atherosclerosis of leg with intermittent claudication, chronic hypoxic respiratory failure, on home oxygen all the time, history of small-bowel obstruction, history of gastroesophageal reflux disease, vitamin D deficiency, osteoarthritis, senile osteoporosis, multiple closed fractures of the ribs on both sides, idiopathic progressive polyneuropathy, hearing loss, vitamin B12 deficiency, iron deficiency anemia, anxiety, depression, history of ventral hernia repair, who was brought in because of fever and near syncope. As per daughter, the patient had a couple of episodes of fever yesterday which resolved with aspirin and tonight she was having near syncope kind of episodes. The patient had 1 episode in the bed when sleeping and when daughter went to the room, she had another episode where she rolled her eyes back and seemed to pass away and it lasted for a few seconds and she came back to her usual self. Called EMS, before the EMS came, she had several more episodes. Afebrile today. In the ER, she was found to be in rapid AFib. Sometimes, heart rate is going into 170s to 180s. She was given a couple of doses of 2.5 mg IV Lopressor, currently heart rate seems to be in the 90s and suddenly goes into 170s to 180s for brief period of time. She is hypokalemic and UA came back as positive. Currently seems comfortable. Denies any headache, no blurred vision, no runny nose, no sore throat. She has chronic cough. No loss of sense of smell or taste. Appetite is okay. No difficulty swallowing, no chest pain, no shortness of breath. When the heart rate goes fast, she feels palpitations. No nausea, no abdominal pain. Normal bowel and bladder movements. No rash, no swelling in the legs. Hemodynamics are stable. Admission Exam Per Admitting Provider GENERAL: The patient is old and frail, not in acute distress. VITAL SIGNS: Temperature 37.2, pulse ranging in the 180s today, blood pressure 123/106, respiratory rate 20, oxygen 97% on room air. HEENT: No pallor, no icterus. Pupils equal, round, and reactive to light. NECK: No JVD, no neck masses, no carotid bruits. CARDIOVASCULAR: S1, S2 heard. Tachycardia, irregular rhythm. No murmurs. RESPIRATORY SYSTEM: Normal AP diameter. No accessory muscle use. No wheezing, no crackles. ABDOMEN: Soft, bowel sounds present, nontender. No distention. CENTRAL NERVOUS SYSTEM: Alert and oriented. Obeys simple commands. Moves extremities. EXTREMITIES: No edema, no erythema. Principal Diagnosis PAT (paroxysmal atrial tachycardia): Syncope: Chronic Dry cough CHF with systolic dysfunction: Cerebral amyloid angiopathy: History of CVA ( intracerebral hemorrhage-due to cerebral amyloid angiopathy) Hypertension Acute Kidney Injury on ON CKD STAGE 3 : Chronic hypoxic respiratory failure : Acute hypotension: History of partial gastrectomy: Discharge Exam General- No acute distress Head- atraumatic Eyes- PERRL, EOMI, ENT- oropharynx clear Neck- supple, no JVD Lungs- clear to auscultation Heart- regular rhythm; no murmur Abdomen- normal bowel sounds, soft, nontender Extremities- no calf tenderness Neuro- alert, oriented x 3; PERRL, EOMI; no facial palsy; no dysarthria Skin- warm & dry Discharge Data Allergies Allergy/AdvReac Type Severity Reaction Status Date / Time diphenhydramine Allergy Severe ANAPHYLAXIS Verified 11/16/19 03:32 TO DIMEDROL-diphenhydramine is active ingredient nut - unspecified Allergy Severe ANAPHYLAXIS Verified 11/16/19 03:32 lisinopril Allergy Intermediate Cough Verified 11/21/19 12:10 Consultations 11/16/19 06:20 Consult Case Management - Discharge Planning Routine 11/16/19 08:00 Consult Cardiology Routine Ordered Studies 11/16/19 01:27 CT head/brain wo con Urgent XR chest 1V portable HISTORY: 84 years-old Female SEPSIS acute sepsis COMPARISON: Chest and rib radiographs 04/23/2016, CTA chest 01/03/2019 TECHNIQUE: Semierect portable AP view of the chest FINDINGS: Globular rounded morphology of a moderately enlarged heart appears similar to comparison. Tortuosity of the descending thoracic aorta. Calcified plaque of the thoracic aortic arch. Chronic interstitial coarsening. No pneumothorax, pleural effusion, overt pulmonary edema or airspace consolidation typical for pneumonia. Degenerative changes of the shoulders and spine. IMPRESSION: 1. Cardiomegaly without acute process. 2. Mild chronic interstitial coarsening. ACT 112: Negative or not required by law. The above report was generated using voice recognition software. It may contain grammatical, syntax or spelling errors. Electronically signed by: Eleazar Ramirez M.D. 11/16/2019 7:51 AM Dictated: 11/16/19 0750 Transcribed: 11/16/19749 CT head/brain wo con CLINICAL HISTORY: headache COMPARISON STUDY: 04/21/2016 TECHNIQUE: Axial CT of the brain is performed from the vertex to the skull base. IV contrast was not administered for this examination. A dose lowering technique was utilized adhering to the principles of ALARA. CT DOSE: 921.40 mGy.cm FINDINGS: No intra or extra-axial mass lesions are visualized. There is no CT evidence of acute cortical infarction. There is no evidence of midline shift. There is no acute hemorrhage. No calvarial fractures are visualized. There are moderately extensive white matter hypodensities likely on a small vessel basis. There is no evidence of pathologic ventricular dilatation. There is no evidence of acute sinusitis IMPRESSION: No acute intracranial findings ACT 112: Negative or not required by law. Electronically signed by: Buck English M.D. 11/16/2019 6:52 AM Dictated: 11/16/19 0652 Transcribed: 11/16/1952 XR chest 1V portable CLINICAL HISTORY: dyspnea COMPARISON STUDY: 11/16/2019 FINDINGS: The heart is enlarged with aortic tortuosity/ectasia. There is mild vascular/interstitial prominence without evidence of overt failure. There is no lobar consolidation.[There is scattered areas of subsegmental atelectasis. IMPRESSION: 1. Technically limited study 2. Cardiomegaly with aortic tortuosity/ectasia 3. Interstitial thickening without evidence of overt failure 4. No evidence of lobar consolidation ACT 112: Negative or not required by law. Electronically signed by: Buck English M.D. 11/18/2019 8:47 AM Dictated: 11/18/19 0846 Transcribed: 11/18/19845 SINGLE VIEW CHEST CLINICAL HISTORY: Cough and dyspnea. FINDINGS: An AP, portable, upright chest radiograph is compared to study dated 11/18/2019 and correlated with chest CT dated 01/03/2019. The examination is degraded by portable technique and patient rotation. The heart is enlarged noting atherosclerotic calcification and uncoiling of the thoracic aorta. There is mild pulmonary vascular congestion. Foci of scarring/atelectasis are present throughout both lungs. No large pleural effusion or pneumothorax is seen. The skeletal structures are osteopenic. There are healed right-sided rib fractures. IMPRESSION: 1. Cardiomegaly with mild pulmonary vascular congestion. 2. No airspace consolidation or large pleural effusion is identified. ACT 112: Negative or not required by law. Electronically signed by: Juni Lorenzo M.D. 11/21/2019 12:45 PM Dictated: 11/21/19 1241 Transcribed: 11/21/19 1241 Hospital Course (1) PAT (paroxysmal atrial tachycardia): Present on admission with syncopal episodes Started on Amiodarone 200mg BID ans Metoprolol succ 50mg daily Rate stable Cardiology on board Case discussed with cardiology and recommended to continue amiodarone and metoprolol at the current dose Ok from cardiology standpoint to discharge home Follow up with cardiology in 2 to 4 weeks Syncope: Possible related to arrhythmia induced vs orthostatic hypotension CT head showed no acute intracranial finding Resolved Chronic Dry cough Patient reports of chronic cough for a long time Possible related to Lisinopril side effect CXR showed cardiomegaly with mild pulmonary vascular congestion. No airspace consolidation or large pleural effusion is identified. Lisinopril discontinued CHF with sytolic dysfunction: Echo showed moderate concentric left ventricular hypertrophy. Mild global hypokinesis of the left ventricle. Ejection fraction 40 to 45% No sign of volume overload ZULEYKA inhibitor was started this admission, discontinued as patient developed nonproductive cough Due to Hypotensive episodes, Cardiology recommended to change lasix 3x weekly, then monitor for weight gain and Symptoms of heart failure Cerebral amyloid angiopathy: Intracranial hemorrhage in the setting of diagnosis of cerebral amyloid angiopathy absolute contraindication to anticoagulation and antiplatelet therapies History of CVA ( intracerebral hemorrhage-due to cerebral amyloid angiopathy) Not on antiplatelets due to bleeding risk Hypertension BP stable Will resume lasix in am if creatinine stable Continue Toprol Acute Kidney Injury on ON CKD STAGE 3 : Creatinine 1.4 today Lasix has been on hold Will do lasix 3x weekly Avoid NSAID /contrast studies Check BMP in 1 week Chronic hypoxic respiratory failure : on home 02 On 3 L by nasal cannula Hypoxic respiratory failure thought to be multifactorial: Chronic diastolic CHF, possible pulmonary hypertension, obesity hypoventilation symptoms next obstructive sleep apnea Patient unable to participate in pulmonary function test Unable to complete sleep study, intolerant of CPAP mask-Per daughter ABG shows chronic hypercarbia with PCO2 60/with a bicarb, normal pH Need to titrate oxygen supply to keep SPO2 between 88-92%-to prevent CO2 retention Will need follow-up with pulmonology clinic at [facility] (2) Acute hypotension: Symptomatic orthostatic Hypotension with dizziness and lightheadedness BP has been stable (3) History of partial gastrectomy: Morbidly obese, BMI 41.2 wt reduction /heart healthy diet /exercise recommended FULL CODE DVT PROPHYLAXIS : SCD AND TEDS DISPOSITION : PT recommended in patient Rehab Plan to discharge home With daughter when tomorrow Patient and daughter refused home health visiting nurse/ Rehab de to COVID exposure at [place] facility Total Time Total Time Spent Total Time Spent (In Minutes): 35 minutes Total Time Includes: Examination of the Patient, Discharge Planning, Medication Reconciliation, Communication With Other Providers and Other Discharge Plan Discharge Items Patient Disposition: Home - Self-Care Reason For Visit: NEAR SYNCOPE, FEVER Discharge Diagnosis: PAROXYSMAL ATRIAL TACHYCARDIA /CHRONIC LUNG DISEASE /HYPIOXIA Activity: Resume your previous activity Non-emergency contact: Primary Care Provider Call non-emergency contact if: you have any medication questions Follow-up/Referrals: Arianna Llamas PA-C [Physician Accounts Supervisor] - 12/06/19 3:00 pm (CARDIOLOGY FOLLOW UP AT [facility] ) Travis Joseph DO [Primary Care Provider] - 11/27/19 11:20 am (11/27/2019 11:20 AM Provider Maurisio Frey DO [facility] ) Diet: Heart Healthy Addtl Attending Provider Instructions: Follow up with your primary care provider Dr. Joseph on 11/27/19 @ 11:20 AM FOLLOW UP WITH CARDIOLOGY AT [facility] with Arianna EVANGELISTA on 12/05 @ 3PM NEED FOLLOW UP WITH PULMONOLOGY Continue oxygen supplement Check BMP in 1 week to monitor electrolytes and renal function Continue to monitor your blood pressure and bring your blood pressure log at your next appointment with your physician Lasix changed to 3 times a week Check your weight daily and if you gain more than 2-3 pounds in 1-2 days, Ok to take additional dose of lasix fall precaution CHF Discharge Instructions Call your Primary Care doctor if any of the following symptoms or problems start or get worse: Shortness of breath or difficulty breathing Wake up at night short of breath Chest pain Cough Swelling of your hands, feet, or legs More fatigued or tired with your normal activity Palpitations - sudden fast heart beats WEIGHT Weigh yourself every morning after using the bathroom. Use the same scale. Wear the same amount of clothing. Write your weight down on a chart. Call your Primary Care doctor if you gain more than 2-3 pounds in 1-2 days. MEDICATIONS Use this discharge instruction sheet for medication instructions. Take your medications at the time your doctor ordered. Do not skip a dose of your medicines. If you miss a dose of medicine, take it as soon as possible, but DO NOT DOUBLE A DOSE. Read your medicine information when you get home. Know all of the side effects of your medicine. If in doubt, ask your pharmacist Call your Primary Care doctor's office if you have any side effects. Be sure all of your doctors know what medicine and herbs you take (including cold, flu, and herbal medicine). Take the following with you to your follow-up doctor appointments: Weight Chart Medication List List of questions Do not drink excessive alcohol, beer or wine. Pending Studies at Discharge: No Stand-Alone Forms: [facility], Smoking Cessation Medications and DC Order Prescriptions: New amiodarone 200 mg Tablet 200 mg PO BID Qty: 60 RF: 3 metoprolol succinate 50 mg Tablet Extended Release 24 Hr 50 mg PO BID 30 Days Qty: 60 RF: 0 furosemide [Lasix] 40 mg tablet 40 mg PO UD Qty: 30 RF: 0 Continued sertraline 50 mg Tablet 50 mg PO DAILY Qty: 0 RF: 0 pantoprazole 40 mg Tablet,Delayed Release (Dr/Ec) 40 mg PO DAILY Qty: 0 RF: 0 nitroglycerin 0.4 mg Tablet, Sublingual 0.4 mg sublingual UD PRN (Reason: Chest Pain) Qty: 0 RF: 0 cholecalciferol (vitamin D3) 4,000 unit Tablet 4,000 unit PO DAILY Qty: 0 RF: 0 sertraline 25 mg Tablet 25 mg PO DAILY Qty: 0 RF: 0 calcium carbonate-vitamin D3 [Calcium 500 + D] 500 mg(1,250mg) -200 unit Tablet 1 tab PO DAILY Qty: 0 RF: 0 alendronate 70 mg tablet 70 mg PO SHERWOOD@0900 RF: 0 lorazepam 0.5 mg tablet 0.5 mg PO TID PRN (Reason: Anxiety) RF: 0 benzonatate 100 mg capsule 100 mg PO TID PRN (Reason: Cough) RF: 0 albuterol sulfate [ProAir HFA] 90 mcg/actuation HFA aerosol inhaler 2 inh inhalation QID RF: 0 diclofenac sodium 1 % gel 4 g topical BID PRN (Reason: Pain) RF: 0 Vitron-C 65 mg iron- 125 mg Tablet,Delayed Release (Dr/Ec) 1 tab PO DAILY RF: 0 Changed metoprolol succinate 50 mg Tablet Extended Release 24 Hr 50 mg PO BID Qty: 0 RF: 0 Discontinued furosemide 40 mg tablet 40 mg PO DAILY RF: 0 Discharge Orders: Discharge Order (Routine); Ordered 11/23/19 Ordered By: Omar Resendiz Admission Data Admit Date/Time: 11/16/19 04:51 Attending Provider: Omar Resendiz Admit Provider: Norm Hayden Primary Care Provider: Travis Joseph Other Providers: Julius Mccurdy ; Abdulkadir Adame ; Og Salazar ; Simon Purdy ; Chris Baugh ; Artur Doshi ; Arianna Llamas ; Andreina Castro ; Dominick Arenas ; Adina Yin. Other Interventions: Discharge Summary Assessment (RN) Last Done: 11/23/19 13:54 DC Date/Time DO NOT enter until pt leaves facility: 11/23/19 17:45
== END 2019-11-23 17:45 | disposition home or self-care (01) | DRG 308 ==
LOC: ED 00:56 → 2E 04:51 → SUATTDRO 04:51 → 2E 05:42

== ENCOUNTER 2020-12-05 22:34 | Inpatient (IN) ==
[2020-12-05] MEDS ORDERED: ONDANSETRON INJ 2 MG/ML 2 ML VIAL IV STA (23:22)
[2020-12-05] MEDS ORDERED: HYDROmorphone INJ 0.5 MG/0.5 ML SYR IV STA (23:22)
[2020-12-05] MEDS ORDERED: SODIUM CHLORIDE 0.9% 1000ML 1,000 ML IV ONE (23:22)
[2020-12-05] MEDS ORDERED: ACETAMINOPHEN 1,000 MG/100 ML VIAL IV STA (23:24)
--- NOTE | 2020-12-05 23:28 | Emergency Department Note ---
Impression & Plan Acute UTI (urinary tract infection), Headache, Acute confusion, Weakness ED Provider Note Name: CAMILA CHERY Age: 85 Sex: F Arrives Via: Ambulance Informant: Daughter (patient poor historian) ED Provider: Wiley Casarez MD Chief Complaint: Weakness Impression: See above Medical Decision Makin yr old female with extensive PMH arrives with daughter due to worsening weakness, confusion and complaining of headache. Patient very uncomfortable from what she says is headache and is febrile. That said she moves head without issue and does not seem to have photophobia nor nuchal rigidity.. She does not have chest pain, abdominal pain, nor back pain per daughter. She was given small dose pain medications and broad work up initiated. UA with findings of UTI though otherwise labs OK. CT head required further dilaudid to help keep her still though fortunately ct head negative. Suspect acute confusion and weakness due to UTI. No clear findings of abdominal TTP nor CVA TTP thus will hold off on CT a/p at this time. Rocephin for abx coverage and hospitalist consulted for further evaluation. Prior Medical Record and Triage/Nursing Notes reviewed by Me Additional history obtained from chart Differentials:Infection, dehydration, metabolic abnormality, hypo/hyperglycemia, electrolyte disturbance, anemia, hypoxia, cardiac sources, intracerebral event, toxicologic, neurologic, as well as other pathologies. Vital Signs: reviewed and remarkable for no significant abnormalities Interventions: saline lock, dilaudid 0.5mg iv x 2, zofran 4mg iv, rocephin 2gm iv Labs:Reviewed and remarkable for no significant abnormalities Imaging:[facility] Radiologist interpretation reviewed by me: CT head no acute findings X ray results are stated below per my interpretation: Chest: 1 view: No infiltrate, no effusion, normal cardiac border. EKG:Per My Interpretation: Indication weakness: NSR 84 bpm, 465 qtc with a few PACs. No Ischemia. Compared to EKG 11/19/19, no significant changes. Cardiac/Tele Monitoring: Cardiac Monitoring: An Order was placed for continuous cardiac monitoring. The monitor shows a rate of 80 with a normal sinus rhythm. Consults:Dr Izabel Mendenhall Hospitalist Plan: Disposition:Hospitalization. Condition: good History of Present Illness:85 yr old female arrives for evaluation of confusion. Patient with increasing confusion throughout the day. She'd been hav ing some diarrhea due to bad food a day ago. This evening worsening confusion associated with headache, body pains, chills, vomiting, and weakness. No mediations prior to arrival. No trauma, injuries, nor falls. She does not regularly get headaches. She usually lives alone and is quite with it usually. No fevers at home, syncope, sob, cough, abdominal pain, urinary symptoms, bloody stool, leg swelling, nor other symptoms. No sick contacts. Did receive covid vaccine. ROS: See above HPI for pertinent positives & negatives. A total of 10 systems reviewed and were otherwise negative. Past Medical History:See Below Past Surgical History:See Below Family History:See Below Social History:See Below Home Medications:See Below Allergies:Diphenhydramine, Nut, Lisinopril Vitals:Blood Pressure: 171/10, Pulse 84, RR 22, T 37.9C, O2 94% on RA Physical Exam: GENERAL: Patient is ill & elderly appearing and in moderate distress. Moaning periodically and laying on left side. EYES: No scleral icterus, unremarkable pupils. ENT: Mucous membranes moist, no nasal congestion. NECK: No masses appreciated, nomeningismus, trachea is midline. RESPIRATORY: No dyspnea. Clear to auscultation and equal bilaterally. No wheeze, no rhonchi. CARDIOVASCULAR: Regular rate and rhythm.No murmurs, rubs, gallops appreciated. GASTROINTESTINAL: Abdomen soft, non-tender, no peritonitis.Bowel sounds positive.No masses appreciated. BACK: No midline tenderness, no CVA tenderness EXTREMITIES: Normal motion all extremities, no cyanosis, no edema. NEUROLOGIC: Awake, answers questions in short response, no acute motor or sensory deficits, no focal weakness, cranial nerves grossly intact. SKIN: No rash, no jaundice, no diaphoresis. GCS: 14 ED Course: Times/Reassessments: stable, mildly improving pain though appears comfortable Wiley Casarez MD Past Med/Surg History Medical History (Updated 12/06/20 @ 04:01 by Wiley Casarez MD) Abdominal pain Chronic respiratory failure with hypoxia Diastolic heart failure Hypertension Iron deficiency anemia Mood disorder Venous insufficiency Surgical History History of appendectomy History of partial gastrectomy Hx of cholecystectomy Family History Other Osteoporosis Social History Smoking Status: Never smoker Hx Alcohol Use: No Hx Substance Use: No Preferred Language: Algerian Communication Ability: Effective Communication Tools: Facial Expression and Physical Gestures Information Writer Required: Yes Beliefs That Will Affect Care: None Current Living Situation: Family Current Living Situation Comment: lives with daughter Feels Safe at Home: Yes Assistive Devices: Oxygen - Continuous and Walker Allergies Allergies Allergy/AdvReac Type Severity Reaction Status Date / Time diphenhydramine Allergy Severe ANAPHYLAXIS Verified 12/05/20 23:46 TO DIMEDROL-diphenhydramine is active ingredient nut - unspecified Allergy Severe ANAPHYLAXIS Verified 12/05/20 23:46 lisinopril Allergy Intermediate Cough Verified 12/05/20 23:46 Home Meds Home Medications Medication Instructions Recorded Confirmed sertraline 50 mg tablet 50 mg PO DAILY #0 tab 12/15/13 12/05/20 pantoprazole 40 mg tablet,delayed 40 mg PO DAILY #0 tab 12/26/13 12/05/20 release calcium carbonate 500 mg (1,250 1 tab PO DAILY #0 04/12/16 12/05/20 mg)-vitamin D3 200 unit tablet (Calcium 500 + D) sertraline 25 mg tablet 25 mg PO DAILY #0 tab 04/12/16 12/05/20 albuterol sulfate 90 mcg/actuation 2 inh INHALATION QID PRN 01/03/19 12/05/20 aerosol inhaler (ProAir HFA) alendronate 70 mg tablet 70 mg PO WK 01/03/19 12/05/20 benzonatate 100 mg capsule 100 mg PO TID PRN 01/03/19 12/05/20 diclofenac sodium 1 % topical gel 4 g TOPICAL BID PRN 01/03/19 12/05/20 lorazepam 0.5 mg tablet 0.5 mg PO TID PRN 01/03/19 12/05/20 cholecalciferol (vitamin D3) 50 50 mcg PO DAILY 12/05/20 12/05/20 mcg (2,000 unit) capsule (Vitamin D3) cyanocobalamin (vitamin B-12) 1,000 mcg PO DAILY 12/05/20 12/05/20 1,000 mcg tablet (Vitamin B-12) furosemide 40 mg tablet (Lasix) 40 mg PO 3XWK 12/05/20 12/05/20 Previous Rx's Medication Instructions Recorded metoprolol succinate 50 mg 50 mg PO BID #0 tab 11/20/19 tablet,extended release 24 hr Results & Data (ED) Vital Signs Vital Signs - 24 hr 12/05/20 22:50 12/06/20 01:45 12/06/20 02:29 Temperature 37.9 C H 37.4 C Temperature Source Oral Oral Pulse Rate 84 87 Respiratory Rate 22 18 Respiratory Effort / Characteristics Non-Labored Spontaneous Respiratory Depth Normal Respiratory Pattern Regular Blood Pressure 171/100 H 127/70 Blood Pressure Mean 123 89 Blood Pressure Position Sitting Pulse Oximetry 94 96 Oxygen Delivery Method Nasal Cannula Oxygen Flow Rate 3 Sepsis Recent Fever Within 48 Hours Yes Sepsis New/Unexplained Change in Mental Status N/A Sepsis Action Taken by Nursing No Action Required Laboratory Data Result diagrams: 12/05/20 23:56 12/05/20 23:56 Lab Results 12/05/20 12/05/20 12/05/20 Range/Units 23:00 23:56 23:56 WBC 7.79 (4.8-10.8) K/uL RBC 3.94 L (4.2-5.4) M/uL Hgb 12.0 (12.0-16.0) g/dL Hct 38.2 (37-47) % MCV 97.0 (80-100) fL MCH 30.5 (25-34) pg MCHC 31.4 L (32-36) g/dL RDW Std Deviation 45.3 (36.4-46.3) fL RDW Coeff of Annamarie 12.8 (11.5-14.5) % Plt Count 162 (130-400) K/uL MPV 9.9 (7.4-10.4) fL Immature Gran % (Auto) 0.1 % Neut % (Auto) 80.3 % Lymph % (Auto) 7.6 % [place] % (Auto) 10.7 % Eos % (Auto) 1.0 % Baso % (Auto) 0.3 % Neut # (Auto) 6.26 (1.4-6.5) K/uL Lymph # (Auto) 0.59 L (1.2-3.4) K/uL [place] # (Auto) 0.83 H (0.11-0.59) K/uL Eos # (Auto) 0.08 (0-0.5) K/uL Baso # (Auto) 0.02 (0-0.2) K/uL Immature Gran # (Auto) 0.01 (0.00-0.02) K/uL PT (9.0-12.0) Seconds INR (0.9-1.1) Sodium (136-145) mmol/L Potassium (3.5-5.1) mmol/L Chloride (98-107) mmol/L Carbon Dioxide (21-32) mmol/L Anion Gap (3-11) BUN (7-18) mg/dl Creatinine (0.6-1.2) mg/dl Est Cr Clr Drug Dosing ml/min Est GFR ( Amer) ml/min Est GFR (Non-Af Amer) ml/min BUN/Creatinine Ratio (10-20) Glucose (70-99) mg/dl Lactate 1.0 (0.4-2.0) mmol/L Calcium (8.5-10.1) mg/dl Magnesium (1.8-2.4) mg/dl Total Bilirubin (0.2-1) mg/dl Direct Bilirubin (0-0.2) mg/dl AST (15-37) U/L ALT (12-78) U/L Alkaline Phosphatase (45-117) U/L Troponin I (0-0.045) ng/ml Total Protein (6.4-8.2) gm/dl Albumin (3.4-5.0) gm/dl Lipase (73-393) U/L Procalcitonin (0-0.5) ng/ml TSH (0.300-4.500) uIu/ml Urine Color Yellow Urine Appearance Cloudy A (Clear) Urine pH 5.5 (4.5-7.5) Ur Specific [place] 1.015 (1.000-1.030) Urine Protein 2+ H (Negative) Urine Glucose (UA) Negative (Negative) Urine Ketones Negative (Negative) Urine Blood 3+ H (Negative) Urine Nitrite Positive A (Negative) Urine Bilirubin Negative (Negative) Urine Urobilinogen Negative (Negative) Ur Leukocyte Esterase 2+ H (Negative) Urine WBC (Auto) >30 H (0-5) /hpf Urine RBC (Auto) 5-10 H (0-4) /hpf U Hyaline Cast (Auto) 1-5 (0-5) /lpf U Epithel Cells (Auto) 20-30 H (0-5) /lpf Urine Bacteria (Auto) 4+ H (Negative) COVID-19 Eval Order SARS-CoV-2 (PCR) (Negative) 12/05/20 12/05/20 12/05/20 Range/Units 23:56 23:56 23:56 WBC (4.8-10.8) K/uL RBC (4.2-5.4) M/uL Hgb (12.0-16.0) g/dL Hct (37-47) % MCV (80-100) fL MCH (25-34) pg MCHC (32-36) g/dL RDW Std Deviation (36.4-46.3) fL RDW Coeff of Annamarie (11.5-14.5) % Plt Count (130-400) K/uL MPV (7.4-10.4) fL Immature Gran % (Auto) % Neut % (Auto) % Lymph % (Auto) % [place] % (Auto) % Eos % (Auto) % Baso % (Auto) % Neut # (Auto) (1.4-6.5) K/uL Lymph # (Auto) (1.2-3.4) K/uL [place] # (Auto) (0.11-0.59) K/uL Eos # (Auto) (0-0.5) K/uL Baso # (Auto) (0-0.2) K/uL Immature Gran # (Auto) (0.00-0.02) K/uL PT 10.3 (9.0-12.0) Seconds INR 1.0 (0.9-1.1) Sodium 138 (136-145) mmol/L Potassium 3.7 (3.5-5.1) mmol/L Chloride 101 (98-107) mmol/L Carbon Dioxide 36 H (21-32) mmol/L Anion Gap 1.0 L (3-11) BUN 15 (7-18) mg/dl Creatinine 0.89 (0.6-1.2) mg/dl Est Cr Clr Drug Dosing 47.6 ml/min Est GFR ( Amer) 68.5 ml/min Est GFR (Non-Af Amer) 59.1 ml/min BUN/Creatinine Ratio 17.1 (10-20) Glucose 120 H (70-99) mg/dl Lactate (0.4-2.0) mmol/L Calcium 8.5 (8.5-10.1) mg/dl Magnesium 1.9 (1.8-2.4) mg/dl Total Bilirubin 0.7 (0.2-1) mg/dl Direct Bilirubin 0.2 (0-0.2) mg/dl AST 18 (15-37) U/L ALT 15 (12-78) U/L Alkaline Phosphatase 65 (45-117) U/L Troponin I < 0.015 (0-0.045) ng/ml Total Protein 7.4 (6.4-8.2) gm/dl Albumin 3.5 (3.4-5.0) gm/dl Lipase 141 (73-393) U/L Procalcitonin 0.13 (0-0.5) ng/ml TSH 1.300 (0.300-4.500) uIu/ml Urine Color Urine Appearance (Clear) Urine pH (4.5-7.5) Ur Specific [place] (1.000-1.030) Urine Protein (Negative) Urine Glucose (UA) (Negative) Urine Ketones (Negative) Urine Blood (Negative) Urine Nitrite (Negative) Urine Bilirubin (Negative) Urine Urobilinogen (Negative) Ur Leukocyte Esterase (Negative) Urine WBC (Auto) (0-5) /hpf Urine RBC (Auto) (0-4) /hpf U Hyaline Cast (Auto) (0-5) /lpf U Epithel Cells (Auto) (0-5) /lpf Urine Bacteria (Auto) (Negative) COVID-19 Eval Order SARS-CoV-2 (PCR) (Negative) 12/05/20 12/05/20 Range/Units 23:56 23:56 WBC (4.8-10.8) K/uL RBC (4.2-5.4) M/uL Hgb (12.0-16.0) g/dL Hct (37-47) % MCV (80-100) fL MCH (25-34) pg MCHC (32-36) g/dL RDW Std Deviation (36.4-46.3) fL RDW Coeff of Annamarie (11.5-14.5) % Plt Count (130-400) K/uL MPV (7.4-10.4) fL Immature Gran % (Auto) % Neut % (Auto) % Lymph % (Auto) % [place] % (Auto) % Eos % (Auto) % Baso % (Auto) % Neut # (Auto) (1.4-6.5) K/uL Lymph # (Auto) (1.2-3.4) K/uL [place] # (Auto) (0.11-0.59) K/uL Eos # (Auto) (0-0.5) K/uL Baso # (Auto) (0-0.2) K/uL Immature Gran # (Auto) (0.00-0.02) K/uL PT (9.0-12.0) Seconds INR (0.9-1.1) Sodium (136-145) mmol/L Potassium (3.5-5.1) mmol/L Chloride (98-107) mmol/L Carbon Dioxide (21-32) mmol/L Anion Gap (3-11) BUN (7-18) mg/dl Creatinine (0.6-1.2) mg/dl Est Cr Clr Drug Dosing ml/min Est GFR ( Amer) ml/min Est GFR (Non-Af Amer) ml/min BUN/Creatinine Ratio (10-20) Glucose (70-99) mg/dl Lactate (0.4-2.0) mmol/L Calcium (8.5-10.1) mg/dl Magnesium (1.8-2.4) mg/dl Total Bilirubin (0.2-1) mg/dl Direct Bilirubin (0-0.2) mg/dl AST (15-37) U/L ALT (12-78) U/L Alkaline Phosphatase (45-117) U/L Troponin I (0-0.045) ng/ml Total Protein (6.4-8.2) gm/dl Albumin (3.4-5.0) gm/dl Lipase (73-393) U/L Procalcitonin (0-0.5) ng/ml TSH (0.300-4.500) uIu/ml Urine Color Urine Appearance (Clear) Urine pH (4.5-7.5) Ur Specific [place] (1.000-1.030) Urine Protein (Negative) Urine Glucose (UA) (Negative) Urine Ketones (Negative) Urine Blood (Negative) Urine Nitrite (Negative) Urine Bilirubin (Negative) Urine Urobilinogen (Negative) Ur Leukocyte Esterase (Negative) Urine WBC (Auto) (0-5) /hpf Urine RBC (Auto) (0-4) /hpf U Hyaline Cast (Auto) (0-5) /lpf U Epithel Cells (Auto) (0-5) /lpf Urine Bacteria (Auto) (Negative) COVID-19 Eval Order Covid19 at [facility] SARS-CoV-2 (PCR) NEGATIVE (Negative) Administered Medications Discontinued Medications Hydromorphone HCl (Hydromorphone Inj 0.5 Mg/0.5 Ml Syr) 0.5 mg IV NOW STA Stop: 12/05/20 23:23 Last Admin: 12/06/20 00:31 Dose: Not Given Documented by: [id number] Hydromorphone HCl (Hydromorphone Inj 0.5 Mg/0.5 Ml Syr) 0.5 mg IV NOW STA Stop: 12/06/20 01:32 Last Admin: 12/06/20 01:43 Dose: 0.5 mg Documented by: [id number] Sodium Chloride (Nss 1000ml) 1,000 mls @ 999 mls/hr IV .Q1H1M ONE Stop: 12/06/20 00:22 Last Infusion: 12/06/20 01:26 Dose: 0 mls/hr Documented by: [id number] Admin: 12/06/20 00:25 Dose: 999 mls/hr Documented by: [id number] Acetaminophen (Ofirmev) 1,000 mg in 100 mls @ 400 mls/hr IV NOW STA Stop: 12/05/20 23:38 Last Infusion: 12/06/20 00:39 Dose: 0 mls/hr Documented by: [id number] Admin: 12/06/20 00:24 Dose: 400 mls/hr Documented by: [id number] Ceftriaxone Sodium (Rocephin) 2,000 mg in 70 mls @ 140 mls/hr IV NOW STA Stop: 12/06/20 01:14 Last Infusion: 12/06/20 02:43 Dose: 0 mls/hr Documented by: [id number] Admin: 12/06/20 02:10 Dose: 140 mls/hr Documented by: [id number] Cefepime HCl (Maxipime) 2,000 mg in 20 mls @ 5 mls/min IV NOW STA; Protocol Stop: 12/06/20 02:43 Last Admin: 12/06/20 03:07 Dose: 5 mls/min Documented by: [id number] Ondansetron HCl (Ondansetron Inj 2 Mg/Ml 2 Ml Vial) 4 mg IV NOW STA Stop: 12/05/20 23:23 Last Admin: 12/06/20 00:25 Dose: 4 mg Documented by: [id number] Discharge Plan Visit Data Chief Complaint: Headache Stated Complaint: SEVERE HEADACHE/NEG STROKE SCALE ED Provider: Wiley Casarez Discharge Problem: Acute UTI (urinary tract infection), Headache, Acute confusion, Weakness Forms Stand Alone Forms: Fever [facility] [place] Prescriptions Prescriptions: No Action sertraline 50 mg Tablet 50 mg PO DAILY Qty: 0 RF: 0 pantoprazole 40 mg Tablet,Delayed Release (Dr/Ec) 40 mg PO DAILY Qty: 0 RF: 0 sertraline 25 mg Tablet 25 mg PO DAILY Qty: 0 RF: 0 calcium carbonate-vitamin D3 [Calcium 500 + D] 500 mg(1,250mg) -200 unit Tablet 1 tab PO DAILY Qty: 0 RF: 0 alendronate 70 mg tablet 70 mg PO WK RF: 0 lorazepam 0.5 mg tablet 0.5 mg PO TID PRN (Reason: Anxiety) RF: 0 benzonatate 100 mg capsule 100 mg PO TID PRN (Reason: Cough) RF: 0 albuterol sulfate [ProAir HFA] 90 mcg/actuation HFA aerosol inhaler 2 inh inhalation QID PRN (Reason: Shortness Of Breath) RF: 0 diclofenac sodium 1 % gel 4 g topical BID PRN (Reason: Pain) RF: 0 metoprolol succinate 50 mg Tablet Extended Release 24 Hr 50 mg PO BID Qty: 0 RF: 0 cyanocobalamin (vitamin B-12) [Vitamin B-12] 1,000 mcg Tablet 1,000 mcg PO DAILY RF: 0 cholecalciferol (vitamin D3) [Vitamin D3] 50 mcg (2,000 unit) Capsule 50 mcg PO DAILY RF: 0 furosemide [Lasix] 40 mg tablet 40 mg PO 3XWK RF: 0 Referrals Referrals: Travis Joseph DO [Primary Care Provider] - Discharge Problem: Headache Qualifiers: Headache type: unspecified Headache chronicity pattern: acute headache Intractability: not intractable Qualified Code(s): R51.9 - Headache, unspecified
[2020-12-06 00:10] LABS: Basophils # (auto) 0.02 K/uL (0-0.2); Basophils % (auto) 0.3 %; Eosinophils # (auto) 0.08 K/uL (0-0.5); Hematocrit (blood only) 38.2 % (37-47); Immature Granulocytes # (auto) 0.01 K/uL (0.00-0.02); Immature Granulocytes % (auto) 0.1 %; Lymphocytes # (auto) 0.59 K/uL (1.2-3.4); Lymphocytes % (auto) 7.6 %; Mean Corpuscular Hemoglobin 30.5 pg (25-34); Mean Corpuscular Hgb Conc 31.4 g/dL (32-36); Mean Platelet Volume 9.9 fL (7.4-10.4); Monocytes # (auto) 0.83 K/uL (0.11-0.59); Monocytes % (auto) 10.7 %; Neutrophils # (auto) 6.26 K/uL (1.4-6.5); Neutrophils % (auto) 80.3 %; Platelet Count 162 K/uL (130-400); RDW Coefficient of Variation 12.8 % (11.5-14.5); RDW Standard Deviation 45.3 fL (36.4-46.3); Red Blood Count 3.94 M/uL (4.2-5.4); White Blood Count 7.79 K/uL (4.8-10.8)
[2020-12-06 00:16] LABS: Appearance Urine Cloudy (Clear); Bacteria Urine Automated 4+ (Negative); Bilirubin Urine Negative (Negative); Blood Urine 3+ (Negative); Color Urine Yellow; Epithelial Cell Urine Auto 20-30 /lpf (0-5); Glucose Urine UA Negative (Negative); Ketones Urine Negative (Negative); Leukocyte Esterase Urine 2+ (Negative); Nitrite Urine Positive (Negative); Protein Urine 2+ (Negative); Specific Gravity Urine 1.015 (1.000-1.030); Urobilinogen Urine Negative (Negative); WBC Urine Automated >30 /hpf (0-5); pH Urine 5.5 (4.5-7.5)
[2020-12-06 00:18] LABS: Prothrombin Time 10.3 Seconds (9.0-12.0)
[2020-12-06 00:27] LABS: Alanine Aminotransferase 15 U/L (12-78); Albumin Level 3.5 gm/dl (3.4-5.0); Aspartate Aminotransferase 18 U/L (15-37); BUN Creatinine Ratio 17.1 (10-20); Bilirubin Direct 0.2 mg/dl (0-0.2); Blood Urea Nitrogen 15 mg/dl (7-18); Calcium 8.5 mg/dl (8.5-10.1); Carbon Dioxide 36 mmol/L (21-32); Chloride 101 mmol/L (98-107); Creatinine Clr Calc Pharmacy 47.6 ml/min; Est GFR (African American) 68.5 ml/min; Est GFR (Non-African American) 59.1 ml/min; Glucose 120 mg/dl (70-99); Lipase 141 U/L (73-393); Magnesium 1.9 mg/dl (1.8-2.4); Potassium 3.7 mmol/L (3.5-5.1); Sodium 138 mmol/L (136-145)
[2020-12-06 00:32] LABS: Alkaline Phosphatase 65 U/L (45-117); Bilirubin,Total 0.7 mg/dl (0.2-1); Total Protein 7.4 gm/dl (6.4-8.2); Troponin I < 0.015 ng/ml (0-0.045)
[2020-12-06] MEDS ORDERED: cefTRIAXone SODIUM 2,000 MG/70 ML BAG IV STA (00:45)
[2020-12-06] MEDS ORDERED: HYDROmorphone INJ 0.5 MG/0.5 ML SYR IV STA (01:31)
[2020-12-06] MEDS ORDERED: CEFEPIME 2,000 MG/20 ML VIAL IV STA (02:40)
--- NOTE | 2020-12-06 03:19 | History & Physical Report ---
Date of Service December 06, 2020 Assessment & Plan (1) Encephalopathy: Plan: History cognitive impairment Secondary to complicated UTI Possible sepsis Diarrhea rule out C. difficile chronic systolic heart failure secondary to nonischemic cardiomyopathy (EF 40 to 45%, TTE 2019), patient on the dry side paroxysmal atrial tachycardia as per records, patient NSR HTN, currently stable history CVA, spontaneous intracranial hemorrhage/history cerebral amyloid angiopathy hx PVD as per records Hyperglycemia, likely prediabetes, hemoglobin A1c of 5.8 2015 Medical telemetry CS, Cefepime Gentle hydration Stool C. difficile Check hemoglobin A1c PT OT eval DVT prophylaxis SCDs RE history intracranial hemorrhage Full code as per daughter, Ms. Leny Patel. She requests updates from providers through [phone]. Text document was generated using [employer] voice recognition software. It may contain grammatical or spelling errors. Kindly contact undersigned for clarification of any documentation item in question. History of Present Illness Chief Complaint: Confusion, weakness as per records Primary Care Provider: Travis Joseph, History obtained from patient, family, and records. Limited history from patient secondary to cognitive impairment, hearing impairment, and language barrier. Medical history significant for chronic systolic heart failure secondary to nonischemic cardiomyopathy (EF 40 to 45%, TTE 2020), hx PAF/paroxysmal atrial tachycardia as per records, HTN,cognitive impairment, chronic hypoxemic respiratory failure possible OHS/CPAP intolerance on home O2, history CVA, hx PVD, spontaneous intracranial hemorrhage/history cerebral amyloid angiopathy. Last confinement 2019 for paroxysmal atrial tachycardia. Yesterday, patient noted to be weak by daughter. Poor appetite, not feeling well, transient diarrhea from bad food as per daughter. Worsening confusion throughout the day. Transient frontal headache symptoms. Patient felt warm to touch. Patient brought to the ER for evaluation. Patient given Ceftriaxone for possible UTI. MEDICAL HISTORY: As above. SURGERIES: Partial gastrectomy secondary to duodenal ulcer, cholecystectomy, hernia repair, appendectomy, vascular procedure, cataract surgery FAMILY HISTORY: Osteoporosis PERSONAL AND SOCIAL HISTORY: Non-smoker, no EtOH intake, lives with daughter. [place] immigrant. 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 Allergies Allergy/AdvReac Type Severity Reaction Status Date / Time diphenhydramine Allergy Severe ANAPHYLAXIS Verified 12/05/20 23:46 TO DIMEDROL-diphenhydramine is active ingredient nut - unspecified Allergy Severe ANAPHYLAXIS Verified 12/05/20 23:46 lisinopril Allergy Intermediate Cough Verified 12/05/20 23:46 Home Medications Medication Instructions Recorded Confirmed Type sertraline 50 mg tablet 50 mg PO DAILY #0 tab 12/15/13 12/05/20 History pantoprazole 40 mg tablet,delayed 40 mg PO DAILY #0 tab 12/26/13 12/05/20 Hi story release calcium carbonate 500 mg (1,250 1 tab PO DAILY #0 04/12/16 12/05/20 History mg)-vitamin D3 200 unit tablet (Calcium 500 + D) sertraline 25 mg tablet 25 mg PO DAILY #0 tab 04/12/16 12/05/20 History albuterol sulfate 90 mcg/actuation 2 inh INHALATION QID PRN 01/03/19 12/05/20 History aerosol inhaler (ProAir HFA) alendronate 70 mg tablet 70 mg PO WK 01/03/19 12/05/20 History benzonatate 100 mg capsule 100 mg PO TID PRN 01/03/19 12/05/20 History diclofenac sodium 1 % topical gel 4 g TOPICAL BID PRN 01/03/19 12/05/20 History lorazepam 0.5 mg tablet 0.5 mg PO TID PRN 01/03/19 12/05/20 History metoprolol succinate 50 mg 50 mg PO BID #0 tab 11/20/19 12/05/20 Rx tablet,extended release 24 hr cholecalciferol (vitamin D3) 50 50 mcg PO DAILY 12/05/20 12/05/20 History mcg (2,000 unit) capsule (Vitamin D3) cyanocobalamin (vitamin B-12) 1,000 mcg PO DAILY 12/05/20 12/05/20 History 1,000 mcg tablet (Vitamin B-12) furosemide 40 mg tablet (Lasix) 40 mg PO 3XWK 12/05/20 12/05/20 History Past Med/Surg History Medical History (Updated 12/06/20 @ 11:10 by Nakul Paiz MD) Abdominal pain Chronic respiratory failure with hypoxia Diastolic heart failure Hypertension Iron deficiency anemia Mood disorder Venous insufficiency Surgical History History of appendectomy History of partial gastrectomy Hx of cholecystectomy Family History Other Osteoporosis Social History Smoking Status: Never smoker Second Hand Exposure: Yes; Do You Dip or Chew Tobacco: No; Hx Alcohol Use: No Hx Substance Use: No Preferred Language: [place] Communication Ability: Effective Communication Tools: Facial Expression and Physical Gestures Phys Ther Required: Yes Beliefs That Will Affect Care: None Current Living Situation: Family Current Living Situation Comment: lives with daughter Feels Safe at Home: Yes Safety Concerns: Feels Safe At This Time Assistive Devices: Oxygen - Continuous and Walker Review of Systems Review of Systems: Could not be reliably obtained Physical Exam Physical Exam: GENERAL: uncomfortable, incoherent, restless, obese, no respiratory distress SKIN: Normal color, warm HEENT: Virgin palpebral conjunctivae, no ptosis, dry buccal mucosa NECK : Supple, short neck, no tenderness CHEST : Decreased breath sounds, no tenderness HEART : RRR, no obvious murmurs ABDOMEN: Some distention, nontender EXTREMITIES : Minimal LE swelling, no LE tenderness, no other conspicuous deformities noted NEUROLOGIC : incoherent, no facial asymmetry, restless, hearing impairment, gait and stance not assessed Results & Data Results & Data ([facility]) Vital Signs (Past 12 Hours) Vital Signs Temp Pulse Resp BP Pulse Ox 12/06/20 02:29 37.4 C 12/06/20 01:45 87 18 127/70 96 12/05/20 22:50 37.9 C H 84 22 171/100 H 94 Laboratory Results Laboratory Results WBC 7.79 K/uL (4.8-10.8) 12/05/20 23:56 RBC 3.94 M/uL (4.2-5.4) L 12/05/20 23:56 Hgb 12.0 g/dL (12.0-16.0) 12/05/20 23:56 Hct 38.2 % (37-47) 12/05/20 23:56 MCV 97.0 fL (80-100) 12/05/20 23:56 MCH 30.5 pg (25-34) 12/05/20 23:56 MCHC 31.4 g/dL (32-36) L 12/05/20 23:56 RDW Std Deviation 45.3 fL (36.4-46.3) 12/05/20 23:56 RDW Coeff of Annamarie 12.8 % (11.5-14.5) 12/05/20 23:56 Plt Count 162 K/uL (130-400) 12/05/20 23:56 MPV 9.9 fL (7.4-10.4) 12/05/20 23:56 Immature Gran % (Auto) 0.1 % 12/05/20 23:56 Neut % (Auto) 80.3 % 12/05/20 23:56 Lymph % (Auto) 7.6 % 12/05/20 23:56 Webb % (Auto) 10.7 % 12/05/20 23:56 Eos % (Auto) 1.0 % 12/05/20 23:56 Baso % (Auto) 0.3 % 12/05/20 23:56 Neut # (Auto) 6.26 K/uL (1.4-6.5) 12/05/20 23:56 Lymph # (Auto) 0.59 K/uL (1.2-3.4) L 12/05/20 23:56 Webb # (Auto) 0.83 K/uL (0.11-0.59) H 12/05/20 23:56 Eos # (Auto) 0.08 K/uL (0-0.5) 12/05/20 23:56 Baso # (Auto) 0.02 K/uL (0-0.2) 12/05/20 23:56 Immature Gran # (Auto) 0.01 K/uL (0.00-0.02) 12/05/20 23:56 PT 10.3 Seconds (9.0-12.0) 12/05/20 23:56 INR 1.0 (0.9-1.1) 12/05/20 23:56 Sodium 138 mmol/L (136-145) 12/05/20 23:56 Potassium 3.7 mmol/L (3.5-5.1) 12/05/20 23:56 Chloride 101 mmol/L (98-107) 12/05/20 23:56 Carbon Dioxide 36 mmol/L (21-32) H 12/05/20 23:56 Anion Gap 1.0 (3-11) L 12/05/20 23:56 BUN 15 mg/dl (7-18) 12/05/20 23:56 Creatinine 0.89 mg/dl (0.6-1.2) 12/05/20 23:56 Est Cr Clr Drug Dosing 47.6 ml/min 12/05/20 23:56 Est GFR ( Amer) 68.5 ml/min 12/05/20 23:56 Est GFR (Non-Af Amer) 59.1 ml/min 12/05/20 23:56 BUN/Creatinine Ratio 17.1 (10-20) 12/05/20 23:56 Glucose 120 mg/dl (70-99) H 12/05/20 23:56 Lactate 1.0 mmol/L (0.4-2.0) 12/05/20 23:56 Calcium 8.5 mg/dl (8.5-10.1) 12/05/20 23:56 Magnesium 1.9 mg/dl (1.8-2.4) 12/05/20 23:56 Total Bilirubin 0.7 mg/dl (0.2-1) 12/05/20 23:56 Direct Bilirubin 0.2 mg/dl (0-0.2) 12/05/20 23:56 AST 18 U/L (15-37) 12/05/20 23:56 ALT 15 U/L (12-78) 12/05/20 23:56 Alkaline Phosphatase 65 U/L (45-117) 12/05/20 23:56 Troponin I < 0.015 ng/ml (0-0.045) 12/05/20 23:56 Total Protein 7.4 gm/dl (6.4-8.2) 12/05/20 23:56 Albumin 3.5 gm/dl (3.4-5.0) 12/05/20 23:56 Lipase 141 U/L (73-393) 12/05/20 23:56 Procalcitonin 0.13 ng/ml (0-0.5) 12/05/20 23:56 TSH 1.300 uIu/ml (0.300-4.500) 12/05/20 23:56 Urine Color Yellow 12/05/20 23:00 Urine Appearance Cloudy (Clear) A 12/05/20 23:00 Urine pH 5.5 (4.5-7.5) 12/05/20 23:00 Ur Specific [place] 1.015 (1.000-1.030) 12/05/20 23:00 Urine Protein 2+ (Negative) H 12/05/20 23:00 Urine Glucose (UA) Negative (Negative) 12/05/20 23:00 Urine Ketones Negative (Negative) 12/05/20 23:00 Urine Blood 3+ (Negative) H 12/05/20 23:00 Urine Nitrite Positive (Negative) A 12/05/20 23:00 Urine Bilirubin Negative (Negative) 12/05/20 23:00 Urine Urobilinogen Negative (Negative) 12/05/20 23:00 Ur Leukocyte Esterase 2+ (Negative) H 12/05/20 23:00 Urine WBC (Auto) >30 /hpf (0-5) H 12/05/20 23:00 Urine RBC (Auto) 5-10 /hpf (0-4) H 12/05/20 23:00 U Hyaline Cast (Auto) 1-5 /lpf (0-5) 12/05/20 23:00 U Epithel Cells (Auto) 20-30 /lpf (0-5) H 12/05/20 23:00 Urine Bacteria (Auto) 4+ (Negative) H 12/05/20 23:00 COVID-19 Eval Order Covid19 at [facility] 12/05/20 23:56 SARS-CoV-2 (PCR) NEGATIVE (Negative) 12/05/20 23:[address] head initial read: No acute intracranial hemorrhage, extra-axial fluid collection or mass-effect. No CT evidence of acute territorial infarct. Age-related generalized tubal volume loss with mild presumed chronic microvascular ischemic changes in the supratentorial white matter. Chest x-ray as per interpretation cardiomegaly EKG as per my interpretation : Rate 85, NSR, LAD, LAFB, LVH, T wave abnormalities inferior leads
[2020-12-06] MEDS ORDERED: CEFEPIME CONSULT ACTIVE PRN (05:41)
[2020-12-06] MEDS ORDERED: NSS + 20MEQ KCL 20 MEQ/1,000 ML BAG IV ONE (06:00)
[2020-12-06 06:09] LABS: Basophils # (auto) 0.02 K/uL (0-0.2); Basophils % (auto) 0.3 %; Eosinophils # (auto) 0.02 K/uL (0-0.5); Eosinophils % (auto) 0.3 %; Hematocrit (blood only) 34.9 % (37-47); Hemoglobin 10.7 g/dL (12.0-16.0); Immature Granulocytes # (auto) 0.02 K/uL (0.00-0.02); Immature Granulocytes % (auto) 0.3 %; Lymphocytes # (auto) 0.79 K/uL (1.2-3.4); Lymphocytes % (auto) 11.9 %; Mean Corpuscular Hemoglobin 30.1 pg (25-34); Mean Corpuscular Hgb Conc 30.7 g/dL (32-36); Mean Platelet Volume 9.9 fL (7.4-10.4); Monocytes # (auto) 0.66 K/uL (0.11-0.59); Neutrophils # (auto) 5.12 K/uL (1.4-6.5); Neutrophils % (auto) 77.2 %; Platelet Count 143 K/uL (130-400); RDW Coefficient of Variation 12.8 % (11.5-14.5); RDW Standard Deviation 45.9 fL (36.4-46.3); Red Blood Count 3.56 M/uL (4.2-5.4); White Blood Count 6.63 K/uL (4.8-10.8)
[2020-12-06 06:32] LABS: Calcium 7.9 mg/dl (8.5-10.1); Creatinine Clr Calc Pharmacy 49.4 ml/min; Est GFR (African American) 79.1 ml/min; Est GFR (Non-African American) 68.3 ml/min
[2020-12-06 07:27] LABS: Estimated Average Glucose 123 mg/dl; Hemoglobin A1C 5.9 % (4.5-5.6)
--- NOTE | 2020-12-06 07:27 | CT Scan Report ---
HEAD CT NONCONTRAST CT DOSE: 614.27 mGy.cm HISTORY: sudden onset headache TECHNIQUE: Multiaxial CT images of the head were performed without the use of intravenous contrast. A utomated exposure control was utilized for this study. A dose lowering technique was utilized adheri ng to the principles of ALARA. Comparison: Head CT 11/16/2019. Findings: The paranasal sinuses and mastoid air cells are clear. The calvarium and skull base are int act. There is no mass, hematoma, midline shift, acute infarct. White matter hypodensity is nonspecifi c but suggestive of microvascular ischemic change. The ventricles and sulci demonstrate mild age-rela lainey involutional changes. Impression: No significant change compared to the prior study. No acute intracranial abnormality. ACT 112: Negative or not required by law. Electronically signed by: Brock Jimenez M.D. 12/06/2020 7:26 AM
--- NOTE | 2020-12-06 07:57 | XRay Report ---
XR chest 1V portable HISTORY: fever, confusion COMPARISON: Chest 11/21/2019. FINDINGS: No pneumothorax. No pleural effusions. There is a mildly tortuous thoracic aorta, unchanged . The heart remains mildly enlarged. There are old, healed right-sided rib fractures. A few linear sc arlike densities within the left lung persists. No new focal lung consolidations to suggest pneumonia . IMPRESSION: No significant change compared to the prior study. No acute process. ACT 112: Negative or not required by law. Electronically signed by: Brock Jimenez M.D. 12/06/2020 7:55 AM
[2020-12-06] MEDS: PROMETHAZINE HCL 12.5 MG in SODIUM CHLORIDE 0.9% 50 ML IV PRN (08:16)
[2020-12-06] MEDS ORDERED: SERTRALINE HCL 50 MG TABLET PO SCH (09:00)
[2020-12-06] MEDS ORDERED: ONDANSETRON INJ 2 MG/ML 2 ML VIAL IV ONE (09:27)
--- NOTE | 2020-12-06 09:47 | Electrocardiogram Report ---
Test Reason : Blood Pressure : / mmHG Vent. Rate : 084 BPM Atrial Rate : 084 BPM P-R Int : 184 ms QRS Dur : 094 ms QT Int : 394 ms P-R-T Axes : 048 -20 050 degrees QTc Int : 465 ms Sinus rhythm with Premature atrial complexes Moderate voltage criteria for LVH, may be normal variant Abnormal ECG When compared with ECG of 19-NOV-2019 12:06, Premature atrial complexes are now Present Nonspecific T wave abnormality no longer present Confirmed by Donald Toscano ([id number]) on 12/06/2020 9:47:03 AM Referred By: REFERRED SELF Confirmed By:Donald Toscano
[2020-12-06] MEDS: CYANOCOBALAMIN 500 MCG TABLET (VITAMIN B-12) PO SCH (10:24)
[2020-12-06] MEDS: METOPROLOL SUCC 50MG EXT REL TAB PO SCH ×2 (10:24→20:50)
[2020-12-06] MEDS: SERTRALINE HCL 50 MG TABLET PO SCH (10:24)
[2020-12-06] MEDS: PANTOprazole 40 MG TAB PO SCH (10:24)
[2020-12-06] MEDS ORDERED: MAGNESIUM SULFATE / D5W 1 GM/100 ML BAG IV ONE (11:00)
--- NOTE | 2020-12-06 11:46 | XRay Report ---
KUB HISTORY: vomiting COMPARISON: KUB 01/04/2019. FINDINGS: The bowel gas pattern is unremarkable. There are no dilated loops of small bowel to suggest an obstruction. No renal calculi. No ureteral calculi. Calcifications in the deep pelvis likely rep resent phleboliths. These remain unchanged. Prior cholecystectomy. Moderate well-formed stool seen wi thin the rectum. The heart remains enlarged. There are old, healed left lower rib fractures. No pneum operitoneum or pneumatosis. IMPRESSION: 1. No evidence for bowel obstruction. 2. Moderate well-formed stool within the rectum. 3. Stable cardiomegaly. ACT 112: Negative or not required by law. Electronically signed by: Brock Jimenez M.D. 12/06/2020 11:45 AM
[2020-12-06] MEDS: CEFEPIME 2,000 MG in SYRINGE 0 ML IV SCH (17:25)
--- NOTE | 2020-12-06 19:39 | Hospitalist Progress Note ---
Date of Service December 06, 2020 Assessment & Plan (1) Encephalopathy: Plan: History cognitive impairment Present on admission with weakness and confusion possible related to UTI CT head showed no significant change compared to the prior study. No acute intracranial abnormality. Continue monitor closely Bacteremia Blood cx grew gram negative bacilli Urine cx pending Continue IV Cefepime for now Vomiting/Diarrhea Possible related to acute illness Continue antiemetic Continue clear liquid diet CHF with sytolic dysfunction: No sign of volume overload Continue Metoprolol Lasix on hold Continue monitor Cerebral amyloid angiopathy: Intracranial hemorrhage in the setting of diagnosis of cerebral amyloid angiopathy absolute contraindication to anticoagulation and antiplatelet therapies History of CVA ( intracerebral hemorrhage-due to cerebral amyloid angiopathy) Not on antiplatelets due to bleeding risk Hypertension BP stable Will resume lasix in am if creatinine stable Continue Toprol Chronic hypoxic respiratory failure : on home 02 On 3 L by nasal cannula has been unable to keep the oxygen supplement on stable History of partial gastrectomy: Morbidly obese, BMI 41.2 wt reduction /heart healthy diet /exercise recommended FULL CODE DVT PROPHYLAXIS : SCD AND TEDS due to hx of intracranial hemorrhage Daughter updated at bedside She requests updates from providers through [phone]. Admission and Anticipated Discharge Date Admission Date: December 06, 2020 Subjective Pt was seen and examined for follow up of confusion Lying in bed with no acute distress [place] implementation coordinator was used, but due to pt confusion we were not able to use the interperter Later i spoke to daughter that said pt has dementia, confused at baseline, but lately her confusion worst Nurse said that patient vomited early She has been sleeping mostly,but easy to wake Physical Exam Physical Exam: General- confusion Head- atraumatic Eyes- PERRL, EOMI, ENT- oropharynx clear Neck- supple, no JVD Lungs- clear to auscultation Heart- regular rhythm; no murmur Abdomen- normal bowel sounds, soft, nontender Extremities- no calf tenderness Neuro- awake, EOMI; no facial palsy; no dysarthria Skin- warm & dry Results & Data Results & Data ([facility]) Vital Signs (Past 12 Hours) Vital Signs Temp Pulse Pulse Resp BP Pulse Ox 12/06/20 19:20 37.5 C 92 H 20 138/83 91 12/06/20 15:27 37.6 C H 83 16 90/51 L 92 12/06/20 15:00 80 12/06/20 11:22 38.1 C H 92 H 20 132/74 91 12/06/20 08:00 60
[2020-12-06] MEDS ORDERED: LIDOCAINE 2% 20 MG/ML 5 ML SYR IV ONE (23:54)
[2020-12-06] MEDS ORDERED: SODIUM CHLORIDE 0.9% 10ML FLUSH IV ONE (23:54)
[2020-12-07] MEDS: PROMETHAZINE HCL 12.5 MG in SODIUM CHLORIDE 0.9% 50 ML IV PRN (02:21)
[2020-12-07] MEDS: CEFEPIME 2,000 MG in SYRINGE 0 ML IV SCH ×2 (03:39→16:40)
[2020-12-07] MEDS ORDERED: CEFEPIME 2,000 MG in SYRINGE 0 ML IV SCH (06:00)
[2020-12-07 08:30] LABS: Hematocrit (blood only) 34.9 % (37-47); Hemoglobin 10.6 g/dL (12.0-16.0); Mean Corpuscular Hemoglobin 29.8 pg (25-34); Mean Corpuscular Hgb Conc 30.4 g/dL (32-36); Mean Platelet Volume 10.6 fL (7.4-10.4); Platelet Count 143 K/uL (130-400); RDW Coefficient of Variation 13.1 % (11.5-14.5); RDW Standard Deviation 46.8 fL (36.4-46.3); Red Blood Count 3.56 M/uL (4.2-5.4); White Blood Count 8.49 K/uL (4.8-10.8)
[2020-12-07 09:00] LABS: BUN Creatinine Ratio 19.8 (10-20); Calcium 8.3 mg/dl (8.5-10.1); Creatinine Clr Calc Pharmacy 42.6 ml/min; Est GFR (African American) 62.5 ml/min; Est GFR (Non-African American) 53.9 ml/min
[2020-12-07] MEDS: PANTOprazole 40 MG TAB PO SCH (09:30)
[2020-12-07] MEDS: METOPROLOL SUCC 50MG EXT REL TAB PO SCH ×2 (09:30→20:25)
[2020-12-07] MEDS: CYANOCOBALAMIN 500 MCG TABLET (VITAMIN B-12) PO SCH (09:30)
[2020-12-07] MEDS: SERTRALINE HCL 50 MG TABLET PO SCH (09:30)
--- NOTE | 2020-12-07 18:48 | Hospitalist Progress Note ---
Date of Service December 07, 2020 Assessment & Plan (1) Encephalopathy: Plan: History cognitive impairment Present on admission with weakness and confusion possible related to UTI CT head showed no significant change compared to the prior study. No acute intracranial abnormality. Continue monitor closely Bacteremia Blood cx grew Ecoli and staph species Urine cx positive for Ecoli Continue IV Cefepime for now Vomiting/Diarrhea Possible related to acute illness Continue antiemetic Continue clear liquid diet CHF with sytolic dysfunction: No sign of volume overload Continue Metoprolol Lasix on hold Continue monitor Cerebral amyloid angiopathy: Intracranial hemorrhage in the setting of diagnosis of cerebral amyloid angiopathy absolute contraindication to anticoagulation and antiplatelet therapies History of CVA ( intracerebral hemorrhage-due to cerebral amyloid angiopathy) Not on antiplatelets due to bleeding risk Hypertension BP stable Will resume lasix in am if creatinine stable Continue Toprol Chronic hypoxic respiratory failure : on home 02 On 3 L by nasal cannula has been unable to keep the oxygen supplement on stable FULL CODE DVT PROPHYLAXIS : SCD AND TEDS due to hx of intracranial hemorrhage Daughter updated at bedside She requests updates from providers through [phone]. Admission and Anticipated Discharge Date Admission Date: December 06, 2020 Subjective Pt was seen and examined for follow up of confusion Lying in bed with no acute distress She has been restlessness No episode of vomiting today Physical Exam Physical Exam: General- confusion Head- atraumatic Eyes- PERRL, EOMI, ENT- oropharynx clear Neck- supple, no JVD Lungs- clear to auscultation Heart- regular rhythm; no murmur Abdomen- normal bowel sounds, soft, nontender Extremities- no calf tenderness Neuro- awake, EOMI; no facial palsy; no dysarthria Skin- warm & dry Results & Data Results & Data ([facility]) Vital Signs (Past 12 Hours) Vital Signs Temp Pulse Resp BP BP Pulse Ox 12/07/20 16:01 37.2 C 83 20 144/85 H 93 12/07/20 11:39 36.8 C 76 20 92 12/07/20 07:42 36.9 C 87 22 119/79 92
[2020-12-07] MEDS: ACETAMINOPHEN 325 MG TAB PO PRN (20:25)
[2020-12-07] MEDS: OLANZapine 10 MG/2.1 ML SDV IM PRN (20:26)
[2020-12-08] MEDS: CEFEPIME 2,000 MG in SYRINGE 0 ML IV SCH (04:41)
[2020-12-08] MEDS: SERTRALINE HCL 50 MG TABLET PO SCH (08:48)
[2020-12-08] MEDS: METOPROLOL SUCC 50MG EXT REL TAB PO SCH ×2 (08:49→20:31)
[2020-12-08] MEDS: PANTOprazole 40 MG TAB PO SCH (08:49)
[2020-12-08] MEDS: CYANOCOBALAMIN 500 MCG TABLET (VITAMIN B-12) PO SCH (08:49)
[2020-12-08] MEDS: ACETAMINOPHEN 325 MG TAB PO PRN ×3 (08:50→20:31)
[2020-12-08] MEDS: OLANZapine 10 MG/2.1 ML SDV IM PRN (08:51)
[2020-12-08] MEDS: ceFAZolin 2000MG 2,000 MG/15 ML SYR IV SCH ×2 (15:29→23:42)
--- NOTE | 2020-12-08 23:50 | Hospitalist Progress Note ---
Date of Service December 08, 2020 Assessment & Plan (1) Encephalopathy: Plan: History cognitive impairment Present on admission with weakness and confusion possible related to UTI CT head showed no significant change compared to the prior study. No acute intracranial abnormality. Continue monitor closely Bacteremia Blood cx grew Ecoli and staph species Urine cx positive for Ecoli IV Cefepime will discontinue and transition to Cefazolin Repeat blood cx no growth so far Ambulatory dysfunction Possible related to acute infection Daughter said before the hospitalization that pt was able to use a walker to move around Continue PT/OT fall precaution Might need inpatient rehab Vomiting/Diarrhea Possible related to acute illness Continue antiemetic Diet advanced to full liquid CHF with sytolic dysfunction: No sign of volume overload Continue Metoprolol Lasix on hold Continue monitor Cerebral amyloid angiopathy: Intracranial hemorrhage in the setting of diagnosis of cerebral amyloid angiopathy absolute contraindication to anticoagulation and antiplatelet therapies History of CVA ( intracerebral hemorrhage-due to cerebral amyloid angiopathy) Not on antiplatelets due to bleeding risk Hypertension BP stable Will resume lasix in am if creatinine stable Continue Toprol Chronic hypoxic respiratory failure : on home 02 On 3 L by nasal cannula has been unable to keep the oxygen supplement on stable FULL CODE DVT PROPHYLAXIS : SCD AND TEDS due to hx of intracranial hemorrhage Daughter updated at bedside She requests updates from providers through [phone]. Admission and Anticipated Discharge Date Admission Date: December 06, 2020 Subjective Pt was seen and examined for follow up of confusion Lying in bed with no acute distress Daughter at bedside and said that pt seems to be a little more awake now No episode of vomiting today Physical Exam Physical Exam: General- confusion Head- atraumatic Eyes- PERRL, EOMI, ENT- oropharynx clear Neck- supple, no JVD Lungs- clear to auscultation Heart- regular rhythm; no murmur Abdomen- normal bowel sounds, soft, nontender Extremities- no calf tenderness Neuro- awake, EOMI; no facial palsy; no dysarthria Skin- warm & dry Results & Data Results & Data ([facility]) Vital Signs (Past 12 Hours) Vital Signs Temp Pulse Resp Pulse Ox 12/08/20 23:11 36.5 C 95 H 20 92 12/08/20 19:18 36.6 C 92 H 22 90
[2020-12-09] MEDS: OLANZapine 10 MG/2.1 ML SDV IM PRN ×2 (00:31→08:00)
[2020-12-09] MEDS: METOPROLOL SUCC 50MG EXT REL TAB PO SCH ×2 (08:54→20:12)
[2020-12-09] MEDS: ceFAZolin 2000MG 2,000 MG/15 ML SYR IV SCH ×2 (08:54→16:25)
[2020-12-09] MEDS: CYANOCOBALAMIN 500 MCG TABLET (VITAMIN B-12) PO SCH (08:54)
[2020-12-09] MEDS: PANTOprazole 40 MG TAB PO SCH (08:55)
[2020-12-09] MEDS: SERTRALINE HCL 50 MG TABLET PO SCH (08:55)
--- NOTE | 2020-12-09 22:50 | Hospitalist Progress Note ---
Date of Service December 09, 2020 Assessment & Plan (1) Encephalopathy: Plan: History cognitive impairment Present on admission with weakness and confusion possible related to UTI CT head showed no significant change compared to the prior study. No acute intracranial abnormality. Continue monitor closely Bacteremia Blood cx grew Ecoli and staph species Urine cx positive for Ecoli IV Cefepime will discontinue and transition to Cefazolin Repeat blood cx no growth so far Ambulatory dysfunction Possible related to acute infection Daughter said before the hospitalization that pt was able to use a walker to move around Continue PT/OT fall precaution Might need inpatient rehab Vomiting/Diarrhea Possible related to acute illness Continue antiemetic Diet advanced to full liquid CHF with sytolic dysfunction: No sign of volume overload Continue Metoprolol Lasix on hold Continue monitor Cerebral amyloid angiopathy: Intracranial hemorrhage in the setting of diagnosis of cerebral amyloid angiopathy absolute contraindication to anticoagulation and antiplatelet therapies History of CVA ( intracerebral hemorrhage-due to cerebral amyloid angiopathy) Not on antiplatelets due to bleeding risk Hypertension BP stable Will resume lasix in am if creatinine stable Continue Toprol Chronic hypoxic respiratory failure : on home 02 On 3 L by nasal cannula has been unable to keep the oxygen supplement on stable FULL CODE DVT PROPHYLAXIS : SCD AND TEDS due to hx of intracranial hemorrhage Daughter updated at bedside She requests updates from providers through [phone]. Admission and Anticipated Discharge Date Admission Date: December 06, 2020 Subjective Pt was seen and examined for follow up of confusion Lying in bed with no acute distress Daughter at bedside and said that pt seems to be more awake today No episode of vomiting today Physical Exam Physical Exam: General- confusion Head- atraumatic Eyes- PERRL, EOMI, ENT- oropharynx clear Neck- supple, no JVD Lungs- clear to auscultation Heart- regular rhythm; no murmur Abdomen- normal bowel sounds, soft, nontender Extremities- no calf tenderness Neuro- awake, EOMI; no facial palsy; no dysarthria Skin- warm & dry Results & Data Results & Data ([facility]) Vital Signs (Past 12 Hours) Vital Signs Temp Pulse Resp BP BP Pulse Ox 12/09/20 20:11 80 147/52 H 95 12/09/20 18:39 37.2 C 96 H 16 180/82 H 91 12/09/20 15:42 36.6 C 82 20 168/96 H 95
[2020-12-10] MEDS: ceFAZolin 2000MG 2,000 MG/15 ML SYR IV SCH ×4 (00:31→21:19)
[2020-12-10] MEDS: OLANZapine 10 MG/2.1 ML SDV IM PRN (05:40)
--- NOTE | 2020-12-10 07:47 | Hospitalist Progress Note ---
Date of Service December 10, 2020 Assessment & Plan (1) Encephalopathy: Plan: Metabolic Encephalopathy History cognitive impairment Present on admission with weakness and confusion possible related to UTI CT head showed no significant change compared to the prior study. No acute intracranial abnormality. Continue monitor closely Bacteremia Blood cx grew Ecoli and staph species Urine cx positive for Ecoli IV Cefepime will discontinue and transition to Cefazolin Repeat blood cx no growth so far Will consider to discharge on Cefdinir Ambulatory dysfunction Possible related to acute infection Daughter said before the hospitalization that pt was able to use a walker to move around Continue PT/OT fall precaution will need inpatient rehab Dysphagia Noticed coughing while drinking the water speech consulted Pt aspirated with thin liquid as per speech therapy aspiration precaution Vomiting/Diarrhea Possible related to acute illness Continue antiemetic Diet advanced to full liquid, will advance as tolerated CHF with sytolic dysfunction: No sign of volume overload Continue Metoprolol Lasix on hold Continue monitor Cerebral amyloid angiopathy: Intracranial hemorrhage in the setting of diagnosis of cerebral amyloid angiopathy absolute contraindication to anticoagulation and antiplatelet therapies History of CVA ( 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 Waiting for placement to rehab Admission and Anticipated Discharge Date Admission Date: December 06, 2020 Subjective Pt was seen and examined for follow up of confusion Lying in bed with no acute distress Pt is doing much better today Her mental status is much better Daughter is at bedside is very pleased to see how much her mother improves Pt was coughing after drinking water Denies any symptoms as per daughter Physical Exam Physical Exam: General- confusion Head- atraumatic Eyes- PERRL, EOMI, ENT- oropharynx clear Neck- supple, no JVD Lungs- clear to auscultation Heart- regular rhythm; no murmur Abdomen- normal bowel sounds, soft, nontender Extremities- no calf tenderness Neuro- awake, EOMI; no facial palsy; no dysarthria Skin- warm & dry Results & Data Results & Data ([facility]) Vital Signs (Past 12 Hours) Vital Signs Temp Pulse Pulse Resp BP BP Pulse Ox 12/10/20 07:41 37.0 C 75 16 187/97 H 96 12/10/20 00:14 36.9 C 20 92/53 L 93 12/09/20 22:33 110 H 12/09/20 20:11 80 147/52 H 95
[2020-12-10] MEDS: SERTRALINE HCL 50 MG TABLET PO SCH (08:04)
[2020-12-10] MEDS: METOPROLOL SUCC 50MG EXT REL TAB PO SCH ×2 (08:06→21:21)
[2020-12-10] MEDS: PANTOprazole 40 MG TAB PO SCH (08:11)
[2020-12-10] MEDS: CYANOCOBALAMIN 500 MCG TABLET (VITAMIN B-12) PO SCH (08:11)
[2020-12-10] MEDS ORDERED: FUROSEMIDE 40 MG TAB PO ONE (09:30)
[2020-12-10] MEDS ORDERED: METOPROLOL TARTRATE 1 MG/ML VIAL IV STA (19:25)
[2020-12-10] MEDS ORDERED: MAGNESIUM SULFATE / D5W 1 GM/100 ML BAG IV ONE (20:00)
[2020-12-10 22:56] LABS: Basophils # (auto) 0.03 K/uL (0-0.2); Basophils % (auto) 0.4 %; Eosinophils # (auto) 0.08 K/uL (0-0.5); Eosinophils % (auto) 1.2 %; Hematocrit (blood only) 36.3 % (37-47); Hemoglobin 11.2 g/dL (12.0-16.0); Immature Granulocytes # (auto) 0.11 K/uL (0.00-0.02); Immature Granulocytes % (auto) 1.6 %; Lymphocytes # (auto) 1.27 K/uL (1.2-3.4); Lymphocytes % (auto) 18.9 %; Mean Corpuscular Hemoglobin 30.6 pg (25-34); Mean Corpuscular Hgb Conc 30.9 g/dL (32-36); Mean Corpuscular Volume 99.2 fL (80-100); Mean Platelet Volume 10.1 fL (7.4-10.4); Monocytes # (auto) 0.91 K/uL (0.11-0.59); Monocytes % (auto) 13.6 %; Neutrophils # (auto) 4.31 K/uL (1.4-6.5); Neutrophils % (auto) 64.3 %; Platelet Count 231 K/uL (130-400); RDW Coefficient of Variation 13.4 % (11.5-14.5); RDW Standard Deviation 48.8 fL (36.4-46.3); Red Blood Count 3.66 M/uL (4.2-5.4); White Blood Count 6.71 K/uL (4.8-10.8)
[2020-12-10 23:12] LABS: BUN Creatinine Ratio 19.5 (10-20); Calcium 8.4 mg/dl (8.5-10.1); Creatinine Clr Calc Pharmacy 37.4 ml/min; Est GFR (Non-African American) 45.7 ml/min; Potassium 3.2 mmol/L (3.5-5.1)
[2020-12-10] MEDS ORDERED: SODIUM CHLORIDE 0.45 % 1,000 ML IV ONE (23:40)
[2020-12-10] MEDS ORDERED: POTASSIUM CHLORIDE PWD 20 MEQ PACK PO STA (23:52)
[2020-12-11] MEDS ORDERED: LOSARTAN POTASSIUM 25 MG TAB PO SCH
[2020-12-11] MEDS ORDERED: POTASSIUM CHLORIDE 40 MEQ in SODIUM CHLORIDE 0.45 % 1,000 ML IV ONE
[2020-12-11] MEDS ORDERED: LOSARTAN POTASSIUM 25 MG TAB PO STA (02:48)
[2020-12-11] MEDS: ceFAZolin 2000MG 2,000 MG/15 ML SYR IV SCH ×2 (08:09→15:33)
[2020-12-11] MEDS: METOPROLOL SUCC 50MG EXT REL TAB PO SCH ×2 (08:13→22:14)
[2020-12-11] MEDS: CYANOCOBALAMIN 500 MCG TABLET (VITAMIN B-12) PO SCH (08:13)
[2020-12-11] MEDS: SERTRALINE HCL 50 MG TABLET PO SCH (08:14)
[2020-12-11] MEDS: PANTOprazole 40 MG TAB PO SCH (08:14)
--- NOTE | 2020-12-11 08:51 | Communication Note ---
Date of Service: December 10, 2020 Made aware by RN of uncontrolled blood pressure. SBP 180s. Cardiac rate 70s Patient attempting to climb out of bed every few hours as per RN. AP Hypertensive urgency Add Losartan to regimen. Will relay to AM provider.
[2020-12-11 11:09] LABS: BUN Creatinine Ratio 21.7 (10-20); Calcium 8.3 mg/dl (8.5-10.1); Est GFR (African American) 68.5 ml/min; Est GFR (Non-African American) 59.1 ml/min; Magnesium 2.2 mg/dl (1.8-2.4); Potassium 3.9 mmol/L (3.5-5.1)
[2020-12-11] MEDS ORDERED: POTASSIUM CHLORIDE PWD 20 MEQ PACK PO ONE (14:30)
--- NOTE | 2020-12-11 16:39 | Hospitalist Progress Note ---
Date of Service December 11, 2020 Assessment & Plan (1) Encephalopathy: Plan: per Dr. Resendiz's notes with additional notes from undersigned: Metabolic Encephalopathy History cognitive impairment Present on admission with weakness and confusion -- likely secondary to E coli Bacteremia and UTI CT head showed no significant change compared to the prior study. No acute intracranial abnormality. --Blood cx grew Ecoli and staph species Urine cx positive for Ecoli IV Cefepime will discontinue and transition to Cefazolin Repeat blood cx no growth so far Will consider to discharge on Cefdinir -- drowsy today, monitor closely Vomiting/Diarrhea Possible related to acute illness Continue antiemetic -- seems to have resolved Dysphagia Noticed coughing while drinking the water speech consulted Pt aspirated with thin liquid as per speech therapy aspiration precaution -- for video swallow tomorrow Ambulatory dysfunction Possible related to acute infection Daughter said before the hospitalization that pt was able to use a walker to move around Continue PT/OT fall precaution -- will need inpatient rehab CHF with sytolic dysfunction: No sign of volume overload Continue Metoprolol Lasix on hold Continue monitor Cerebral amyloid angiopathy: Intracranial hemorrhage in the setting of diagnosis of cerebral amyloid angiopathy absolute contraindication to anticoagulation and antiplatelet therapies History of CVA (intracerebral hemorrhage-due to cerebral amyloid angiopathy) Not on antiplatelets due to bleeding risk Hypertension BP stable hold Lasix for now as patient not eating Continue Toprol Chronic hypoxic respiratory failure : on home 02 On 3 L by nasal cannula has been unable to keep the oxygen supplement on stable FULL CODE: DVT PROPHYLAXIS : SCDs AND TEDS due to hx of intracranial hemorrhage called patient's daughter Leny over the phone, no answer Admission and Anticipated Discharge Date Admission Date: December 06, 2020 Subjective ff up for acute encephalopathy, E coli bacteremia, and UTI seen resting in bed, not in distress, comfortable mostly sleeping opens eyes to verbal stimuli discussed with RN- patient mostly drowsy today- was not able to take her medications nor eat patient apparently was more awake when daughter visited no other signs/symptoms noted Review of Systems Review of Systems: unable to be obtained due to patient's mental status Physical Exam Physical Exam: General- oriented x0, not in distress,breathing with no effort or accessory muscle use Eyes- anicteric Neck- no JVD Lungs- clear breath sounds bilaterally, no rales/wheezes Heart- normal rate, regular rhythm; no murmurs Abdomen- normal bowel sounds, nondistended, soft, nontender Extremities- no pretibial edema, no calf tenderness Neuro- drowsy, but moves all extremities equally Skin- warm & dry Results & Data Results & Data ([facility]) Vital Signs (Past 12 Hours) Vital Signs Temp Pulse Resp BP Pulse Ox 12/11/20 15:57 36.5 C 65 20 177/112 H 97 12/11/20 08:17 37.0 C 62 18 129/82 95 all noted and reviewed including below
[2020-12-11] MEDS: LOSARTAN POTASSIUM 50 MG TAB PO SCH (22:13)
[2020-12-11] MEDS ORDERED: hydrALAZINE HCL 20 MG/ML VIAL IV PRN (22:24)
[2020-12-12] MEDS: ceFAZolin 2000MG 2,000 MG/15 ML SYR IV SCH ×5 (00:19→15:42)
[2020-12-12] MEDS: METOPROLOL SUCC 50MG EXT REL TAB PO SCH ×2 (08:04→20:59)
[2020-12-12] MEDS: CYANOCOBALAMIN 500 MCG TABLET (VITAMIN B-12) PO SCH (08:04)
[2020-12-12] MEDS: SERTRALINE HCL 50 MG TABLET PO SCH (08:04)
[2020-12-12] MEDS: PANTOprazole 40 MG TAB PO SCH (08:05)
[2020-12-12 10:44] LABS: Basophils # (auto) 0.04 K/uL (0-0.2); Basophils % (auto) 0.4 %; Eosinophils % (auto) 3.3 %; Hematocrit (blood only) 40.5 % (37-47); Hemoglobin 12.1 g/dL (12.0-16.0); Immature Granulocytes % (auto) 1.1 %; Lymphocytes % (auto) 12.2 %; Mean Corpuscular Hemoglobin 29.8 pg (25-34); Mean Corpuscular Hgb Conc 29.9 g/dL (32-36); Mean Corpuscular Volume 99.8 fL (80-100); Mean Platelet Volume 9.7 fL (7.4-10.4); Monocytes % (auto) 9.9 %; Neutrophils # (auto) 6.61 K/uL (1.4-6.5); Neutrophils % (auto) 73.1 %; Platelet Count 263 K/uL (130-400); RDW Coefficient of Variation 13.6 % (11.5-14.5); RDW Standard Deviation 49.2 fL (36.4-46.3); Red Blood Count 4.06 M/uL (4.2-5.4); White Blood Count 9.05 K/uL (4.8-10.8)
[2020-12-12 11:09] LABS: BUN Creatinine Ratio 15.9 (10-20); Calcium 8.5 mg/dl (8.5-10.1); Creatinine Clr Calc Pharmacy 44.9 ml/min; Est GFR (African American) 68.5 ml/min; Est GFR (Non-African American) 59.1 ml/min; Potassium 3.9 mmol/L (3.5-5.1)
--- NOTE | 2020-12-12 12:16 | Fluoroscopy Report ---
MODIFIED BARIUM SWALLOW CLINICAL HISTORY: r/o aspiration COMPARISON STUDY: None. FLUOROSCOPY TIME: 1.4 minutes. TECHNIQUE: A modified barium swallow was performed in conjunction with Speech Pathology. The patient ingested varying consistencies of barium containing material. Video fluoroscopy was performed. FINDINGS: No aspiration was identified within liquids by spoon. There was penetration with swallows o f thin liquids. No aspiration was identified. There was no aspiration with nectar thick liquids or pu dding consistencies. Prominence of the cricopharyngeus was noted. This results in mild narrowing of t he upper esophagus. IMPRESSION: 1. No tracheal aspiration identified. 2. Penetration with swallows of thin liquids. 3. Full recommendations by speech pathology to follow. ACT 112: Negative or not required by law. Electronically signed by: Neftali Terry M.D. 12/12/2020 12:14 PM
[2020-12-12] MEDS ORDERED: MICONAZOLE NITRATE POWDER 43 GM EXT PRN (15:28)
--- NOTE | 2020-12-12 19:47 | Hospitalist Progress Note ---
Date of Service December 12, 2020 Assessment & Plan (1) Encephalopathy: Plan: per Dr. Resendiz's notes with additional notes from undersigned: Metabolic Encephalopathy History cognitive impairment Present on admission with weakness and confusion -- likely secondary to E coli Bacteremia and UTI CT head showed no significant change compared to the prior study. No acute intracranial abnormality. --Blood cx grew Ecoli and staph species Urine cx positive for Ecoli IV Cefepime will discontinue and transition to Cefazolin Repeat blood cx no growth so far Will consider to discharge on Cefdinir --Mental status improving per daughter Continue IV cefazolin PT OT evaluation Vomiting/Diarrhea Possible related to acute illness Continue antiemetic -- seems to have resolved Dysphagia Noticed coughing while drinking the water speech consulted Pt aspirated with thin liquid as per speech therapy aspiration precaution --S/p video swallow: No sunitha aspiration noted Ambulatory dysfunction Possible related to acute infection Daughter said before the hospitalization that pt was able to use a walker to move around Continue PT/OT fall precaution -- will need inpatient rehab CHF with sytolic dysfunction: No sign of volume overload Continue Metoprolol Lasix on hold --> likely resume tomorrow Continue monitor Cerebral amyloid angiopathy: Intracranial hemorrhage in the setting of diagnosis of cerebral amyloid angiopathy absolute contraindication to anticoagulation and antiplatelet therapies History of CVA (intracerebral hemorrhage-due to cerebral amyloid angiopathy) Not on antiplatelets due to bleeding risk Hypertension BP stable hold Lasix for now , likely resume tomorrow Continue Toprol Chronic hypoxic respiratory failure : on home 02 On 3 L by nasal cannula has been unable to keep the oxygen supplement on stable FULL CODE: DVT PROPHYLAXIS : SCDs AND TEDS due to hx of intracranial hemorrhage plan of care discussed with patient's daughter Leny in detail and at length all questions answered She is understanding, agreeable, comfortable with the plan of care Admission and Anticipated Discharge Date Admission Date: December 06, 2020 Subjective Follow-up for encephalopathy, UTI, bacteremia Seen with patient's daughter Leny at the bedside, assisted with translation Patient seen resting in bed, comfortable, in very good spirits, smiling, cheerful Still somewhat confused per patient's daughter but much better Patient denies headache, dizziness, shortness of breath, chest pain, abdominal pain Ports legs feel weak No other symptoms Review of Systems Review of Systems: All noted and reviewed, negative except for above Physical Exam Physical Exam: General- oriented x 1, not in distress, speaks in sentences with no effort or accessory muscle use Eyes- anicteric Neck- no JVD Lungs- clear breath sounds bilaterally, no crackles or wheezing noted Heart- normal rate, regular rhythm; no murmurs Abdomen- normal bowel sounds, nondistended, soft, nontender Extremities- no pretibial edema, no calf tenderness Neuro- alert, oriented x 1; no new gross focal neurologic deficits Skin- warm & dry Results & Data Results & Data ([facility]) Vital Signs (Past 12 Hours) Vital Signs Temp Pulse Pulse Resp BP Pulse Ox 12/12/20 19:16 37.1 C 80 18 120/79 94 12/12/20 15:42 37 C 72 20 155/93 H 96 12/12/20 15:00 76 All noted including below
[2020-12-12] MEDS: LOSARTAN POTASSIUM 50 MG TAB PO SCH (20:59)
[2020-12-13] MEDS: ceFAZolin 2000MG 2,000 MG/15 ML SYR IV SCH ×2 (00:45→08:31)
[2020-12-13] MEDS: PANTOprazole 40 MG TAB PO SCH ×2 (08:31→08:44)
[2020-12-13] MEDS: CYANOCOBALAMIN 500 MCG TABLET (VITAMIN B-12) PO SCH ×2 (08:32→08:44)
[2020-12-13] MEDS: SERTRALINE HCL 50 MG TABLET PO SCH ×2 (08:32→08:44)
[2020-12-13] MEDS: METOPROLOL SUCC 50MG EXT REL TAB PO SCH ×2 (08:32→08:44)
[2020-12-13] MEDS ORDERED: LORazepam 2 MG/4 ML VIAL ONE ×2 (12:14→12:53)
[2020-12-13] MEDS ORDERED: RAPID SEQUENCE INDUCTION BAG ONE (12:21)
[2020-12-13] MEDS ORDERED: LORazepam 2 MG/4 ML VIAL IV STA (12:49)
[2020-12-13] MEDS ORDERED: LORazepam 2 MG/4 ML VIAL IV PRN (12:51)
--- NOTE | 2020-12-13 12:52 | Procedure Note ---
Procedure Note Date of Service December 13, 2020 Note INTUBATION PROCEDURE NOTE: Attending: Dr Ramirez Valero MD Patient was evaluated and plan to intubate was made for respiratory distress and hypoxia. Sedative agent used: 20 mg etomidate, 3 mg of midazolam, 100 mg of lidocaine Paralysis agent used: None Emergent consent was implied given patients rapidly declining clinical status and need for airway protection. The patient was prepared in the appropriate fashion. The patient was easily pre-oxygenated by using [id number] ventilation. With help of glide scope grade 1 vocal cords were visualized and 7.5 [place] ETT was introduced on first attempt to 22 cm at the lip. The stylette was removed and balloon was inflated with 10mL of air. Appropriate Colorimetric change was appreciated for at least 10 breaths. Bilateral chest rise and breath sounds were appreciated without air sounds in the epigastrium. Patient tolerated the procedure well and there were no immediate complications. Chest Xray to follow for confirming placement. Coding CPT Codes Resuscitation - Resuscitation: 30466 Endotracheal Intubation, emergency ([id number]) [facility] Procedure Codes (Charges) Resuscitation Resuscitation: 68398 Endotracheal Intubation, emergency
[2020-12-13] MEDS: MoRPHine SULFATE 4 MG/ML 1 ML CARP\\VIAL IV PRN (15:13)
--- NOTE | 2020-12-13 19:43 | Hospitalist Progress Note ---
Date of Service December 13, 2020 delayed entry date of service, as above Assessment & Plan (1) Encephalopathy: Plan: per Dr. Resendiz's notes with additional notes from undersigned: Seizure like Activity, possible Acute CVA -- occurred 12/13/20 -- during code purple, patient's family has decided to transition goal of care to DNR ,comfort measures status only PRN Morphine, Ativan ordered Metabolic Encephalopathy History cognitive impairment Present on admission with weakness and confusion -- likely secondary to E coli Bacteremia and UTI CT head showed no significant change compared to the prior study. No acute intracranial abnormality. --Blood cx grew Ecoli and staph species Urine cx positive for Ecoli IV Cefepime will discontinue and transition to Cefazolin Repeat blood cx no growth so far consider to discharge on Cefdinir --Mental status improving per daughter, until #1 Vomiting/Diarrhea Possible related to acute illness resolved Dysphagia Pt aspirated with thin liquid as per speech therapy S/p video swallow: No sunitha aspiration noted Ambulatory dysfunction Possible related to acute infection CHF with systolic dysfunction: No sign of volume overload on Metoprolol Cerebral amyloid angiopathy: Intracranial hemorrhage in the setting of diagnosis of cerebral amyloid angiopathy absolute contraindication to anticoagulation and antiplatelet therapies History of CVA (intracerebral hemorrhage-due to cerebral amyloid angiopathy) Not on antiplatelets due to bleeding risk Hypertension Chronic hypoxic respiratory failure : on home 02 On 3 L by nasal cannula Admission and Anticipated Discharge Date Admission Date: December 06, 2020 Subjective ff up for encephalopathy, etc checked with RN over the phone in AM, patient alert, bright, declining meds CODE purple called as patient noted to have seizure like activity while talking with daughter at bedside patient seen at bedside, unresponsive, O2 sat 70% on nasal cannula, with tonic- clonic movements BP systolic 120s, HR 150s sinus tach nonrebreather mask ordered - o2 increased to >90% Ativan IV 1mg ordered STAT intubation ordered discussed with patient's daughter Leny and granddaughter family has decided to transition patient to DNR, comfort measure status checked on patient again, Ativan IV ordered for seizure like activity improved plan of care discussed with patient's daughter and granddaughter in detail and at length all questions answered they are understanding, agreeable, comfortable with the plan of care Review of Systems Review of Systems: all noted and negative except for above Physical Exam Physical Exam: General- unresponsive, (+) respiratory distress Eyes- anicteric Neck- no JVD Lungs- clear breath sounds bilaterally, no rales/wheezes Heart- normal rate, regular rhythm; no murmurs Abdomen- normal bowel sounds, nondistended, soft, nontender Extremities- no pretibial edema, no calf tenderness Neuro- unresponsive Skin- warm & dry Results & Data Results & Data ([facility]) Vital Signs (Past 12 Hours) Vital Signs Temp Pulse Pulse Resp BP Pulse Ox 12/13/20 14:30 67 12/13/20 11:21 36.0 C L 67 20 156/95 H 91 12/13/20 07:45 71 all noted and reviewed including below
[2020-12-13] MEDS ORDERED: MIDAZOLAM HCL 5 MG/ML VIAL IV ONE ×2 (23:54)
[2020-12-13] MEDS ORDERED: LIDOCAINE 2% 20 MG/ML 5 ML SYR IV ONE (23:54)
[2020-12-13] MEDS ORDERED: ETOMIDATE 2 MG/ML 20 ML VIAL IV ONE (23:54)
[2020-12-14] MEDS: MoRPHine SULFATE 4 MG/ML 1 ML CARP\\VIAL IV PRN ×4 (00:22→20:38)
[2020-12-14] MEDS: LORazepam 1 MG/2 ML VIAL IV PRN ×2 (01:22→10:15)
[2020-12-14] MEDS ORDERED: MoRPHine SULFATE 2 MG/ML CARP IV STA (01:44)
--- NOTE | 2020-12-14 17:15 | Hospitalist Progress Note ---
Date of Service December 14, 2020 Assessment & Plan (1) Comfort measures only status: Plan: Remains stable on comfort care Shortness of breath 100% on nonrebreather No acute distress Pain medications as needed and other supportive medications as needed Discussed with the family members Other comorbid conditions as below (2) Encephalopathy: Plan: Seizure like Activity, possible Acute CVA -- occurred 12/13/20 -- during code purple, patient's family has decided to transition goal of care to DNR ,comfort measures status only PRN Morphine, Ativan ordered Metabolic Encephalopathy History cognitive impairment Present on admission with weakness and confusion -- likely secondary to E coli Bacteremia and UTI CT head showed no significant change compared to the prior study. No acute intracranial abnormality. --Blood cx grew Ecoli and staph species Urine cx positive for Ecoli IV Cefepime will discontinue and transition to Cefazolin Repeat blood cx no growth so far consider to discharge on Cefdinir --Mental status improving per daughter, until #1 Vomiting/Diarrhea Possible related to acute illness resolved Dysphagia Pt aspirated with thin liquid as per speech therapy S/p video swallow: No sunitha aspiration noted Ambulatory dysfunction Possible related to acute infection CHF with systolic dysfunction: No sign of volume overload on Metoprolol Cerebral amyloid angiopathy: Intracranial hemorrhage in the setting of diagnosis of cerebral amyloid angiopathy absolute contraindication to anticoagulation and antiplatelet therapies History of CVA (intracerebral hemorrhage-due to cerebral amyloid angiopathy) Not on antiplatelets due to bleeding risk Hypertension Chronic hypoxic respiratory failure : on home 02 On 3 L by nasal cannula Admission and Anticipated Discharge Date Admission Date: December 06, 2020 Subjective December 14, 2020 The patient was seen and examined in medical telemetry unit in presence of the daughter She remains stable on comfort care Some shortness of breath at rest Review of Systems Review of Systems: Unobtainable due to cognitive status Physical Exam Physical Exam: Lying in bed with distress secondary to shortness of breath Constitutional: + ill appearing Neck: trachea midline, no thyromegaly Respiratory: + respiratory distress; no cough and not tachypneic Auscultation: + diminished lung sounds Cardiovascular: Rate/Rhythm: regular rate and regular rhythm; not tachycardic Gastrointestinal (Abdomen): Benign Neurologic: Unresponsive
--- NOTE | 2020-12-15 07:29 | Death Pronouncement Note ---
Date of Service December 15, 2020 Pronouncement Note Admission Date Admission Date: December 06, 2020 Date and Time of Date of : 12/14/20 Time of : 23:45 Contributing Factors (1) Comfort measures only status: (2) Encephalopathy: Additional Data Confirmation of : no pulse, no respirations, no heart sounds and pupils fixed and dilated Family: at bedside Attending physician: Oneil Rodriguez MD
--- NOTE | 2020-12-15 08:27 | Discharge Summary ---
Date of Service December 15, 2020 Admission HPI Per Admitting Provider History obtained from patient, family, and records. Limited history from patient secondary to cognitive impairment, hearing impairment, and language barrier. Medical history significant for chronic systolic heart failure secondary to nonischemic cardiomyopathy (EF 40 to 45%, TTE 2019), hx PAF/paroxysmal atrial tachycardia as per records, HTN,cognitive impairment, chronic hypoxemic respiratory failure possible OHS/CPAP intolerance on home O2, history CVA, hx PVD, spontaneous intracranial hemorrhage/history cerebral amyloid angiopathy. Last confinement 2019 for paroxysmal atrial tachycardia. Yesterday, patient noted to be weak by daughter. Poor appetite, not feeling well, transient diarrhea from bad food as per daughter. Worsening confusion throughout the day. Transient frontal headache symptoms. Patient felt warm to touch. Patient brought to the ER for evaluation. Patient given Ceftriaxone for possible UTI. MEDICAL HISTORY: As above. SURGERIES: Partial gastrectomy secondary to duodenal ulcer, cholecystectomy, hernia repair, appendectomy, vascular procedure, cataract surgery FAMILY HISTORY: Osteoporosis PERSONAL AND SOCIAL HISTORY: Non-smoker, no EtOH intake, lives with daughter. Citizen Of [place] immigrant. 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 Admission Exam Per Admitting Provider Physical Exam: GENERAL: uncomfortable, incoherent, restless, obese, no respiratory distress SKIN: Normal color, warm HEENT: [place] palpebral conjunctivae, no ptosis, dry buccal mucosa NECK : Supple, short neck, no tenderness CHEST : Decreased breath sounds, no tenderness HEART : RRR, no obvious murmurs ABDOMEN: Some distention, nontender EXTREMITIES : Minimal LE swelling, no LE tenderness, no other conspicuous deformities noted NEUROLOGIC : incoherent, no facial asymmetry, restless, hearing impairment, gait and stance not assessed Principal Diagnosis The patient : Metabolic Encephalopathy Complicated UTI Comfort measures status Cerebral Amyloid Angiopathy Nonischemic Cardiomyopathy Discharge Exam Constitutional + ill appearing Neck trachea midline, no thyromegaly Respiratory + respiratory distress; no cough and not tachypneic Auscultation: + diminished lung sounds Cardiovascular Rate/Rhythm: regular rate and regular rhythm; not tachycardic Discharge Data Allergies Allergy/AdvReac Type Severity Reaction Status Date / Time diphenhydramine Allergy Severe ANAPHYLAXIS Verified 12/05/20 23:46 TO DIMEDROL-diphenhydramine is active ingredient nut - unspecified Allergy Severe ANAPHYLAXIS Verified 12/05/20 23:46 lisinopril Allergy Intermediate Cough Verified 12/05/20 23:46 Consultations 12/06/20 02:26 ED Decision to Admit Stat Ordered Studies 12/05/20 23:22 CT head/brain wo con Urgent 12/12/20 11:30 FL video swallow Routine Hospital Course (1) Comfort measures only status: Remains stable on comfort care Shortness of breath 100% on nonrebreather No acute distress Pain medications as needed and other supportive medications as needed Discussed with the family members Other comorbid conditions as below (2) Encephalopathy: Seizure like Activity, possible Acute CVA -- occurred 12/13/20 -- during code purple, patient's family has decided to transition goal of care to DNR ,comfort measures status only PRN Morphine, Ativan ordered Metabolic Encephalopathy History cognitive impairment Present on admission with weakness and confusion -- likely secondary to E coli Bacteremia and UTI CT head showed no significant change compared to the prior study. No acute intracranial abnormality. --Blood cx grew Ecoli and staph species Urine cx positive for Ecoli IV Cefepime will discontinue and transition to Cefazolin Repeat blood cx no growth so far consider to discharge on Cefdinir --Mental status improving per daughter, until #1 Vomiting/Diarrhea Possible related to acute illness resolved Dysphagia Pt aspirated with thin liquid as per speech therapy S/p video swallow: No sunitha aspiration noted Ambulatory dysfunction Possible related to acute infection CHF with systolic dysfunction: No sign of volume overload on Metoprolol Cerebral amyloid angiopathy: Intracranial hemorrhage in the setting of diagnosis of cerebral amyloid angiopathy absolute contraindication to anticoagulation and antiplatelet therapies History of CVA (intracerebral hemorrhage-due to cerebral amyloid angiopathy) Not on antiplatelets due to bleeding risk Hypertension Chronic hypoxic respiratory failure : on home 02 On 3 L by nasal cannula Total Time Total Time Spent Total Time Spent (In Minutes): 20 minutes Discharge Plan Discharge Items Patient Disposition: Discharge Diagnosis: Metabolic Encephalopathy Complicated UTI Comfort measures status Addtl Attending Provider Instructions: Pt
== END 2020-12-14 23:55 | disposition expired | DRG 689 ==
LOC: ED 22:34 → SUATTDRO 12-06 03:22 → 2W 12-06 03:22
DX: R73.03 Prediabetes; I62.9 Nontraumatic intracranial hemorrhage, unspecified; I42.8 Other cardiomyopathies; R78.81 Bacteremia; E66.01 Morbid (severe) obesity due to excess calories; Z51.5 Encounter for palliative care; Z99.81 Dependence on supplemental oxygen; N39.0 Urinary tract infection, site not specified; Z66 Do not resuscitate; J96.11 Chronic respiratory failure with hypoxia; F39 Unspecified mood [affective] disorder; Z68.41 Body mass index [BMI] 40.0-44.9, adult; G93.41 Metabolic encephalopathy; I47.1 Supraventricular tachycardia; I68.0 Cerebral amyloid angiopathy; I50.22 Chronic systolic (congestive) heart failure; I50.30 Unspecified diastolic (congestive) heart failure; Z86.73 Personal history of transient ischemic attack (TIA), and cerebral infarction without residual deficits; B96.20 Unspecified Escherichia coli [E. coli] as the cause of diseases classified elsewhere